=== PATIENT | female | born 1985 | race African-American/Black ===

== ENCOUNTER 2022-04-09 10:25 | Outpatient (REF) | payer OTHER, SELFPAY ==
[2022-04-09 14:11] LABS: Hematocrit 40.3 % (37.0-47.0); Hemoglobin 13.4 g/dl (12.0-16.0); Mean Corpuscular HGB Conc 33.3 g/dl (31.0-35.0); Mean Corpuscular Hemoglobin 30.9 pg (27.0-33.0); Mean Corpuscular Volume 93.1 fL (80.0-98.0); Mean Platelet Volume 9.5 fL (9.4-12.3); Platelet Count 295 X10*3/uL (160-400); Red Blood Count 4.33 X10*6/uL (4.20-5.50); Red Cell Distribution Width 11.9 % (11.0-16.0); White Blood Count 7.9 X10*3/uL (4.8-10.8)
[2022-04-09 14:21] LABS: Alanine Aminotransferase 30 U/L (0-31); Albumin Level 4.5 g/dL (3.5-5.0); Alkaline Phosphatase 77 U/L (39-117); Anion Gap 16 (12-20); Aspartate Amino Transferase 29 U/L (5-31); Bilirubin Total 0.4 mg/dL (0.0-1.0); Blood Urea Nitrogen 8 mg/dL (9-16); Calcium 9.6 mg/dL (8.4-10.2); Carbon Dioxide 25 mmol/L (22-29); Chloride 104 mmol/L (96-108); Cholesterol 254 mg/dL; Estimated Glomerular Filt Rate > 60; Glucose Fasting 103 mg/dL (60-99); HDL Cholesterol 59 mg/dL; LDL Cholesterol Calculated 175 mg/dl; Potassium 4.5 mmol/L (3.3-5.1); Sodium 140 mmol/L (135-145); Total Protein 7.7 g/dL (6.5-8.0); Triglycerides 100 mg/dL
[2022-04-09 14:44] LABS: TSH reflex Free T4 1.01 uIU/mL (0.32-4.0)
== END 2022-04-09 10:26 | disposition home or self-care (01) ==
LOC: HO.WFDLDS 10:25
PROVIDERS: Visit Provider Hospitalist
DX: Z00.00 Encounter for general adult medical examination without abnormal findings (principal)
CPT/HCPCS: 36415; 80053; 80061; 84443; 85027

== ENCOUNTER 2023-05-19 14:54 | Outpatient (AMB) | payer OTHER, SELFPAY ==
[2023-05-19 15:10] VITALS: BP 114/62; PULSE 94; RESP 12; TEMP 36.7; O2SAT 100; BMI 42.6
--- NOTE | 2023-05-19 15:10 | MHC.PC.OV ---
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: No Accompanied by: Self / Same As Patient Allergies No Known Allergies Allergy (Verified 05/19/23 15:14) Medication List - Last Reconciled 05/19/23 by Maye Wesley CNP atorvastatin 40 mg PO BEDTIME coenzyme Q10 (Co Q-10) 30 mg PO DAILY levonorgestrel (Mirena) intrauterine metformin 500 mg PO DAILY 3 months olanzapine 10 mg PO QPM trazodone TAKE 1 TABLET BY MOUTH TWICE A DAY NEEDED Tobacco use date assessed: 05/19/23 Dental Screening Dental Screen Date: 05/19/23 Did you have a dental visit in the last 12 months?: Yes Did you have a dental problem in the last 6 months where you did not have access to dental care?: No Was dental information given to patient?: Patient has dentist HPI HPI Comments History of Present Illness Details 38-year-old female presents for transfer of care Her former PCP is GLORY who is no longer with the practice. Her last office visit was on 09/08/2022 Her last physical and routine blood work was over a year ago She has history of anxiety, depression, hypercholesterolemia, and obesity. She is on mirena IUD She notes that she currently takes olanzapine and trazadone with controlled symptoms and no adverse reactions. She stopped taking atorvastatin, Co Q-10, and metformin after her prescriptions ran out She reports controlled anxiety, depression, and bipolar symptoms She notes that she has not been making healthy lifestyle choices or exercising She notes that she currently smokes 10 cigarettes daily and she has been smoking for the past 15 years. She drinks alcohol occasionally. She smokes cannabis once or twice weekly. She is willing to quit smoking with medication management [facility] Medical History (Updated 05/19/23 @ 15:46 by Maye Wesley CNP) HPV (human papilloma virus) infection Depression Anxiety Surgical History (Updated 05/19/23 @ 15:14 by Viry Barajas MA) No pertinent past surgical history Family History Other Mental health disorder Substance abuse Social History Housing: Apartment Patient Tobacco Use Status: Current everyday Tobacco user Tobacco use type: Cigarette Cigarette Packs Per Day: 0.5 Cigarettes Per Day: 10 Years Smoked: 15 e-Cigarette/Vaping Use: Never Used service: No Current occupational status: employed 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 1. Little interest or pleasure in doing things: several days 2. Feeling down, depressed, or hopeless: several days 3. Trouble falling or staying asleep, or sleeping too much: several days 4. Feeling tired or having little energy: more than half the days 5. Poor appetite or overeating: more than half the days 6. Feeling bad about yourself - or that you are a failure or have let yourself or your family down: more than half the days 7. Trouble concentrating on things, such as reading the newspaper or watching television: more than half the days 8. Moving or speaking so slowly that other people could have noticed. Or the opposite - being so fidgety or restless that you have been moving around a lot more than usual: not at all 9. Thoughts that you would be better off or of hurting yourself in some way: not at all Total score: 11 Depression Screening Interpretation: Positive Depression Screening Follow-up: Existing condition, In treatment and Community Mental Health Worker F/U Depression Screening Done: Yes 46415 - PHQ-9 Billing: Yes Source: Developed by Drs. Reinaldo Madrigal, Liset Mesa, Carlitos Yu and colleagues, with an educational wilfredo from [employer]. Thrive Questionnaire Date Thrive assessed: 05/19/23 I am a: Patient What is your living situation today?: I have a steady place to live Within the past 12 months, did the food you bought not last and you didn't have the money to get more?: Never true Within the past 12 months, did you worry whether your food would run out before you got money to buy more?: Never true Do you have trouble paying for medicines?: No Do you have trouble getting transportation to medical appointments?: No Do you have trouble paying your heating and electricity bill?: No Do you have trouble taking care of your child, family member or friend?: No Do you have trouble with day-to-day activities such as bathing, preparing meals, shopping, managing finances, etc.?: No Are you currently unemployed and looking for a job?: No Are you interested in more education?: Yes Please select the resources that you would like help with: Education Currently or been in a relationship where the following occur: no concerns reported AUDIT C Alcohol Use Questionnaire (AUDIT-C) 1. How often do you have a drink containing alcohol?: Monthly or less 2. How many drinks containing alcohol do you have on a typical day when you are drinking?: 3 or 4 3. How often do you have six or more drinks on one occasion?: Never Total Score: 2 TY-7 AMB Questionnaire TY-7 Date TY - 7 assessed: 05/19/23 Feeling nervous, anxious, or on edge: 1 = Several days Not being able to stop or control worryin = Several days Worrying too much about different things: 1 = Several days Trouble relaxin = Several days Being so restless that it is hard to sit still: 0 = Not at all Becoming easily annoyed or irritable: 1 = Several days Feeling afraid as if something awful might happen: 1 = Several days Total TY-7 score (0-4 normal; 5-9 mild; 10-14 moderate; 15-21 severe): 6 Source: Developed by Drs. Reinaldo Madrigal, Liset Mesa, Carlitos Yu and colleagues, with an educational wilfredo from [employer]. TY-7 Assessment Billing TY-7 Assessment Tool: TY-7 Assessment 98598 Physical exam (Primary Care) Vital Signs: Last Vital Signs Temp 98.1 F 05/19/23 15:10 Pulse 94 05/19/23 15:10 Resp 12 05/19/23 15:10 BP 114/62 05/19/23 15:10 Pulse Ox 100 05/19/23 15:10 Oxygen Delivery Method Room Air 05/19/23 15:10 Tobacco/Smoking Status: Tobacco use Status Tobacco use date assessed 05/19/23 05/19/23 15:18 Patient Tobacco Use Status Current everyday Tobacco 05/19/23 15:10 e-Cigarette/Vaping Use Never Used 05/19/23 15:10 PHQ-9: PHQ-9 Score PHQ-9: Total score 11 05/19/23 15:18 Depression Screening Interpretation: Positive Depression Screening Follow-up: Existing condition, In treatment and Community Mental Health Worker F/U Thrive Assessment: Date of Thrive Assessment Date Thrive assessed 05/19/23 05/19/23 15:18 Currently or been in a relationship where the following occur: no concerns reported Assessment and Plan Assessment & Plan (1) Anxiety: Code(s): F41.9 - Anxiety disorder, unspecified Plan: TY-7 and PHQ-9 scores revealed mild anxiety and moderate depression respectively She reports controlled anxiety, depression, and bipolar symptoms Continue taking olanzapine and trazodone as prescribed Routine exercise encouraged Referral sent to the community navigator to referred the patient to Psychiatry for mental health evaluation and management Will continue to monitor Follow-up in 1 month for an extended physical exam and labs review Return sooner with worsening or new symptoms Verbalized understanding and agreed with treatment plan (2) Depression: Code(s): F32.A - Depression, unspecified Plan: As above (3) Bipolar affective, mixed, severe: Code(s): F31.63 - Bipolar disorder, current episode mixed, severe, without psychotic features Plan: As above (4) Morbid obesity: Code(s): E66.01 - Morbid (severe) obesity due to excess calories Plan: She notes that she stop taking metformin several months ago after her prescription ran out She currently weighs 264 lb, BMI is 42.6 Healthy diet and routine exercise encouraged Referred to weight management Follow-up with symptoms or concerns Verbalized understanding and agreed with the plan (5) Smoking trying to quit: Code(s): Z72.0 - Tobacco use Plan: She notes that she currently smokes 10 cigarettes daily and she has been smoking for the past 15 years. She is willing to quit smoking with medication treatment Nicotine patch order. Advised to use as prescribed Return with symptoms or concerns Verbalized understanding and agreed with the treatment plan (6) Hypercholesterolemia: Code(s): E78.00 - Pure hypercholesterolemia, unspecified Plan: Triglycerides and total cholesterol levels were elevated over a ago, 254 and 175 respectively She stopped taking atorvastatin and Co Q10 several months ago after her prescriptions ran out Will check lipid panel level and make changes as needed Advised to get fasting blood work done before next visit. Verbalized understanding and agreed with treatment plan (7) Laboratory tests ordered as part of a complete physical exam (CPE): Code(s): Z00.00 - Encounter for general adult medical examination without abnormal findings Plan: Fasting labs ordered as part of a complete physical exam. Advised to fast for at least 10 hours before getting labs drawn. May drink water Verbalized understanding and agreed with treatment plan. Orders: Orders Complete Blood Count Auto Diff Today Z00.00 - Encounter for general adult medical examination without abnormal findings Lipid Panel Today Z00.00 - Encounter for general adult medical examination without abnormal findings UA CC w/rflx Micro + Cult Today Z00.00 - Encounter for general adult medical examination without abnormal findings Comprehensive [place]. Panel Fast Today Z00.00 - Encounter for general adult medical examination without abnormal findings TSH reflex Free T4 Today Z00.00 - Encounter for general adult medical examination without abnormal findings Referrals Nurse Navigator Referral F31.63 - Bipolar disorder, current episode mixed, severe, without psychotic features, F32.A - Depression, unspecified, F41.9 - Anxiety disorder, unspecified Medical Weight Management Referral E66.01 - Morbid (severe) obesity due to excess calories Medications: New nicotine transdermally daily; Apply 14 mg patch q.d. x6 weeks, then apply 7 mg patch q.d. x2 weeks: Info: Stop cigarette use at treatment onset 28 ea 0RF Discontinued coenzyme Q10 (Co Q-10) to be taken while taking atorvastatin Discontinued Reason: Doctor's Order 30 mg PO DAILY 90 caps 3RF atorvastatin Discontinued Reason: Doctor's Order 40 mg PO BEDTIME 90 tabs 3RF E78.00 - Pure hypercholesterolemia, unspecified metformin Discontinued Reason: Doctor's Order 500 mg PO DAILY 3 months 90 tabs 1RF E66.01 - Morbid (severe) obesity due to excess calories, F31.63 - Bipolar disorder, current episode mixed, severe, without psychotic features, Z83.3 - Family history of diabetes mellitus Coding Level of Care Code Est Pt Level 4 (37228) Diagnoses Anxiety F41.9 Depression F32.A Bipolar affective, mixed, severe F31.63 Morbid obesity E66.01 Smoking trying to quit Z72.0 Hypercholesterolemia E78.00 Laboratory tests ordered as part of a complete physical exam (CPE) Z00.00 Additional Codes TY-7 Assessment Billing - TY-7 Assessment Tool: TY-7 Assessment 87350 ([id number])
== END 2023-05-19 15:56 | disposition home or self-care (01) ==
PROVIDERS: PCP Hospitalist; Visit Provider Nurse Practitioner Family
DX: E78.00 Pure hypercholesterolemia, unspecified (principal); F31.63 Bipolar disorder, current episode mixed, severe, without psychotic features; Z68.41 Body mass index [BMI] 40.0-44.9, adult; E66.01 Morbid (severe) obesity due to excess calories; F41.9 Anxiety disorder, unspecified; Z72.0 Tobacco use
CPT/HCPCS: 96127; 99214

== ENCOUNTER 2023-07-07 09:54 | Outpatient (REF) | payer OTHER, SELFPAY ==
[2023-07-07 11:48] LABS: MANUAL DIFF FLAG NO
[2023-07-07 11:55] LABS: Basophils Percent Auto 0.1 % (0-2); Eosinophils Absolute Auto 0.1 X10*3/uL (0.0-0.4); Eosinophils Percent Auto 0.7 % (0-4); Hematocrit 39.5 % (37.0-47.0); Hemoglobin 13.3 g/dl (12.0-16.0); Imm Gran Abs Auto 0.03 X10*3/uL (0.00-0.03); Imm Gran Pct Auto 0.4 % (0.0-0.4); Lymphocytes Absolute Auto 1.8 X10*3/uL (1.2-4.9); Lymphocytes Percent Auto 23.8 % (20-40); Mean Corpuscular HGB Conc 33.7 g/dl (31.0-35.0); Mean Corpuscular Hemoglobin 30.8 pg (27.0-33.0); Mean Corpuscular Volume 91.4 fL (80.0-98.0); Monocytes Absolute Auto 0.4 X10*3/uL (0.1-1.2); Monocytes Percent Auto 5.7 % (2-11); Neutrophils Absolute Auto 5.1 x10*3/uL (2.0-8.3); Neutrophils Percent Auto 69.3 % (45-73); Platelet Count 296 X10*3/uL (160-400); Red Blood Count 4.32 X10*6/uL (4.20-5.50); White Blood Count 7.4 X10*3/uL (4.8-10.8)
[2023-07-07 11:56] LABS: Appearance Urine Clear; Color Urine Yellow; Glucose Urine UA Negative (Negative); Leukocyte Esterase Urine Negative (Negative); Nitrite Urine Negative (Negative); Specific Gravity - Urine 1.025 (1.005-1.025); Urine Blood Negative (Negative); Urine Ketones 15 mg/dL (Negative); Urine Protein Negative (Neg-Trace)
[2023-07-07 12:30] LABS: Alanine Aminotransferase 37 U/L (0-31); Albumin Level 4.4 g/dL (3.5-5.0); Alkaline Phosphatase 80 U/L (39-117); Anion Gap 11 (12-20); Aspartate Amino Transferase 31 U/L (5-31); Bilirubin Total 0.7 mg/dL (0.0-1.0); Blood Urea Nitrogen 7 mg/dL (9-16); Calcium 9.6 mg/dL (8.4-10.2); Carbon Dioxide 27 mmol/L (22-29); Chloride 104 mmol/L (96-108); Cholesterol 256 mg/dL (<200); Estimated Glomerular Filt Rate > 60; Glucose Fasting 104 mg/dL (60-99); HDL Cholesterol 48 mg/dL (>40); LDL Cholesterol Calculated 190 mg/dL (<100); Potassium 4.2 mmol/L (3.3-5.1); Sodium 138 mmol/L (135-145); Total Protein 7.9 g/dL (6.5-8.0); Triglycerides 92 mg/dL (<150)
[2023-07-07 12:49] LABS: TSH reflex Free T4 0.86 uIU/mL (0.32-4.0)
== END 2023-07-07 09:55 | disposition home or self-care (01) ==
LOC: HO.WFDLDS 09:54
PROVIDERS: Visit Provider Nurse Practitioner Family
DX: Z00.00 Encounter for general adult medical examination without abnormal findings (principal)
CPT/HCPCS: 36415; 80053; 80061; 81003; 84443; 85025

== ENCOUNTER 2023-08-08 13:03 | Outpatient (AMB) | payer OTHER, SELFPAY ==
[2023-08-08 13:09] VITALS: BP 111/74; PULSE 71; RESP 12; TEMP 36.4; O2SAT 100; BMI 42.0
--- NOTE | 2023-08-08 13:09 | A.OFFPC_ITS ---
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 x6 weeks, then apply 7 mg patch q.d. x2 weeks: Info: Stop cigarette use at treatment onset olanzapine 10 mg PO QPM trazodone TAKE 1 TABLET BY MOUTH TWICE A DAY NEEDED Tobacco use date assessed: 08/08/23 Dental Screening Dental Screen Date: 08/08/23 Did you have a dental visit in the last 12 months?: Yes Did you have a dental problem in the last 6 months where you did not have access to dental care?: No Was dental information given to patient?: Patient has dentist HPI HPI Comments History of Present Illness Details 38-year-old female presents for an exten ded physical exam and review of recent blood work She has history of anxiety, depression, hypercholesterolemia, and obesity. She is on mirena IUD She notes that she has not been taking her psychotropic medications routinely Community navigator was informed to schedule an appointment for the patient to connect with a therapist or psychiatrist. However, the patient notes that she has not been contacted She reports improved anxiety, depression, and bipolar symptoms but notes that her symptoms may be well controlled if she is consistent with taking her medications. No SI/HI/AVH She notes that she has not been making healthy lifestyle choices or exercising She notes that she currently smokes 5 cigarettes daily and she has been smoking for the past 15 years. She drinks alcohol occasionally. She smokes cannabis occasionally. She stop taking nicotine there was ordered at her last visit Her last Pap smear was a year ago with [facility]: Normal [facility] Medical History HPV (human papilloma virus) infection Depression Anxiety Surgical History No pertinent past surgical history Family History Other Mental health disorder Substance abuse Social History (Updated 08/08/23 @ 13:18 by Nevaeh Strauss CMA) Household Members: Children Housing: Apartment 75 years or older and lives alone: No Alcohol intake: current Alcohol intake frequency: a few times a month Patient Tobacco Use Status: Current everyday Tobacco user Tobacco use type: Cigarette Cigarette Packs Per Day: 0.5 Cigarettes Per Day: 10 Years Smoked: 15 e-Cigarette/Vaping Use: Never Used Substance Use Type: Marijuana service: No Current occupational status: employed Current occupation: [employer] Current occupational exposures/hazards: No Cognitive needs: No Hearing needs: No Vision needs: Yes Questionnaire PHQ-9 Over the last 2 weeks, how often have you been bothered by any of the following problems? 1. Little interest or pleasure in doing things: several days 2. Feeling down, depressed, or hopeless: several days 3. Trouble falling or staying asleep, or sleeping too much: several days 4. Feeling tired or having little energy: more than half the days 5. Poor appetite or overeating: more than half the days 6. Feeling bad about yourself - or that you are a failure or have let yourself or your family down: several days 7. Trouble concentrating on things, such as reading the newspaper or watching television: more than half the days 8. Moving or speaking so slowly that other people could have noticed. Or the opposite - being so fidgety or restless that you have been moving around a lot more than usual: not at all 9. Thoughts that you would be better off or of hurting yourself in some way: not at all Total score: 10 Depression Screening Interpretation: Positive Depression Screening Follow-up: Existing condition and In treatment Depression Screening Done: Yes 58941 - PHQ-9 Billing: Yes Source: Developed by Drs. Reinaldo Madrigal, Liset Mesa, Carlitos Yu and colleagues, with an educational wilfredo from [employer]. Thrive Questionnaire Date Thrive assessed: 08/08/23 I am a: Patient What is your living situation today?: I have a steady place to live Within the past 12 months, did the food you bought not last and you didn't have the money to get more?: Never true Within the past 12 months, did you worry whether your food would run out before you got money to buy more?: Never true Do you have trouble paying for medicines?: No Do you have trouble getting transportation to medical appointments?: No Do you have trouble paying your heating and electricity bill?: No Do you have trouble taking care of your child, family member or friend?: No Do you have trouble with day-to-day activities such as bathing, preparing meals, shopping, managing finances, etc.?: No Are you currently unemployed and looking for a job?: No Are you interested in more education?: No Please select the resources that you would like help with: None Currently or been in a relationship where the following occur: no concerns reported THRIVE Score: 0 AUDIT C Alcohol Use Questionnaire (AUDIT-C) 1. How often do you have a drink containing alcohol?: 2-4 times a month 2. How many drinks containing alcohol do you have on a typical day when you are drinking?: 1 or 2 3. How often do you have six or more drinks on one occasion?: Never Total Score: 2 TY-7 AMB Questionnaire TY-7 Date TY - 7 assessed: 08/08/23 Feeling nervous, anxious, or on edge: 1 = Several days Not being able to stop or control worryin = Several days Worrying too much about different things: 1 = Several days Trouble relaxin = Several days Being so restless that it is hard to sit still: 0 = Not at all Becoming easily annoyed or irritable: 2 = More than half the days Feeling afraid as if something awful might happen: 0 = Not at all Total TY-7 score (0-4 normal; 5-9 mild; 10-14 moderate; 15-21 severe): 6 Source: Developed by Drs. Reinaldo Madrigal, Liset Mesa, Carlitos Yu and colleagues, with an educational wilfredo from [employer] TY-7 Assessment Billing TY-7 Assessment Tool: TY-7 Assessment 51016 Review of Systems Const Details: Denies chills, Denies fatigue, Denies fever(s), Denies headache(s) and Denies weakness HEENT Denies change in vision, Denies dizziness, Denies headache(s), Denies hearing loss, Denies nasal congestion, Denies sinus pain, Denies sinus pressure and Denies sore throat Card Denies chest pain, Denies lightheadedness, Denies dyspnea and Denies other (palpitations) Resp Denies cough, Denies dyspnea and Denies wheezing GI Denies abdominal pain, Denies melena, Denies hematochezia, Denies change in bowel habits, Denies dyspepsia and Denies nausea Denies hematuria and Denies dysuria Musc Denies abnormal gait, Denies myalgias, Denies arthralgias, Denies numbness and Denies tingling Skin/Breast Denies rash, Denies unusual bruising and Denies wounds Neuro Denies abnormal gait, Denies dizziness, Denies headache(s), Denies memory loss, Denies numbness, Denies Sensory deficit (Neuro), Denies tingling and Denies weakness Psych Denies anxiety, Denies depression and Denies memory loss Endo Denies cold intolerance, Denies fatigue, Denies heat intolerance, Denies polydipsia and Denies polyuria Thaddeus/Lymph Denies easy bleeding and Denies easy bruising Aller/Immun Denies wheezing Physical exam (Primary Care) Vital Signs: Last Vital Signs Temp 97.5 F 08/08/23 13:09 Pulse 71 08/08/23 13:09 Resp 12 08/08/23 13:09 BP 111/74 08/08/23 13:09 Pulse Ox 100 08/08/23 13:09 Oxygen Delivery Method Room Air 08/08/23 13:09 BMI result Body Mass Index 42.0 Tobacco/Smoking Status: Tobacco use Status Tobacco use date assessed 08/08/23 08/08/23 13:16 Patient Tobacco Use Status Current everyday Tobacco 08/08/23 13:18 Tobacco use type Cigarette 08/08/23 13:18 e-Cigarette/Vaping Use Never Used 08/08/23 13:18 PHQ-9: PHQ-9 Score PHQ-9: Total score 10 08/08/23 13:38 Depression Screening Interpretation: Positive Depression Screening Follow-up: Existing condition and In treatment Thrive Assessment: Date of Thrive Assessment Date Thrive assessed 08/08/23 08/08/23 13:21 Currently or been in a relationship where the following occur: no concerns reported Const Other: General: no acute distress, well developed, alert and awake Nutritional Appearance: well nourished Orientation/consciousness: patient oriented x3 [facility] Head: Yes normocephalic and Yes atraumatic Ears: hearing grossly normal bilaterally and TM's normal bilaterally General nose exam: Normal external nose present and Normal nares present Mouth: Normal oral and palatal mucosa present and moist mucous membranes Teeth and gingiva: dentition normal Throat: Yes oropharynx normal Eyes Pupils: Equal, round and reactive pupils present and Pupil accommodation reflex normal EOM: EOMs intact bilaterally Neck Neck: Yes normal visual inspection, Yes no lymphadenopathy and Yes trachea midline Thyroid: Thyroid normal Carotids: no bruits Lymphatic: no lymphadenopathy noted Chest Chest palpation & inspection: normal inspection of the chest Resp Effort & Inspection: normal respiratory effort Auscultation: clear to auscultation bilaterally Cardio Rate: regular rate Rhythm: regular rhythm Heart sounds: S1 normal heart sound present, S2 normal heart sound present, no gallops, no murmurs and no rubs Bruits: no abdominal aortic bruits and no carotid bruits GI Palpation (GI): No Abdominal aortic bruit present, Soft to palpation, nontender, No hepatosplenomegaly present and No Rebound tenderness present Auscultation: normal bowel sounds General: Yes no CVA tenderness Back/Spine/Pelvis Back: no CVA tenderness Cervical Spine: cervical ROM normal and No Cervical spine tenderness Thoracic/Lumbar Spine: thoraco-lumbar ROM normal, No pain with thoraco-lumbar ROM, No thoracic spinal tenderness and No lumbar spinal tenderness Skin General: warm and dry. Normal skin color. Normal skin turgor Lesions: no lesions Rashes: no rashes Trauma: no lacerations or abrasions Wounds: no wounds Nails: normal Neuro General: patient oriented x3, gait normal and CN's II-XI intact bilaterally Cranial nerves: Yes Equal, round and reactive pupils present Cognition (Neuro): normal cognition Gait exam (Neuro): Normal gait present Motor exam (neuro): 5/5 motor strength present throughout Sensory Exam: No Sensory deficit (Neuro) Deep tendon reflexes (DTR's): Right patellar reflex intensity grade: 2+ and Left patellar reflex intensity grade: 2+ Extrem General: Yes normal to inspection, No edema and No calf tenderness Psych Appearance: grossly normal Affect: normal affect Attitude: cooperative Thought process: Normal thought process present Results AMB Hemoglobin A1c AMB Hemoglobin A1c 6.5 % Last Edit by Nevaeh Strauss CMA on 08/08/23 14:00 Assessment and Plan Assessment & Plan (1) Normal physical exam: Code(s): Z00.00 - Encounter for general adult medical examination without abnormal findi ngs Plan: No significant physical restrictions or limitations noted Continue current treatment regimen Healthy diet and routine exercise encouraged Follow-up in 6 weeks for hypercholesterolemia, anxiety, depression, and bipolar Return sooner with worsening or new symptoms Verbalized understanding and agreed with treatment plan (2) Anxiety: Code(s): F41.9 - Anxiety disorder, unspecified Plan: Reports improved anxiety, depression, and bipolar symptoms PHQ-9 and TY-7 scores revealed moderate depression and mild anxiety respectively She has not compliant with her medication regimen Medication compliance and routine exercise encouraged She notes she has not been contacted to connect with a therapist or psychiatrist. Will follow-up with the [facility] Follow-up in 6 weeks or return sooner with worsening or new symptoms Verbalized understanding and agreed with treatment plan (3) Depression: Code(s): F32.A - Depression, unspecified Plan: As above (4) Bipolar affective, mixed, severe: Code(s): F31.63 - Bipolar disorder, current episode mixed, severe, without psychotic features Plan: As above (5) Hypercholesterolemia: Code(s): E78.00 - Pure hypercholesterolemia, unspecified Plan: Recent lab results reviewed with the patient Total cholesterol and LDL are elevated, 256 and 190 respectively Atorvastatin 20 mg daily at night ordered. Take as prescribed Advised to limit foods high in saturated fat and avoid foods high in trans fat Routine exercise encouraged Will repeat lipid panel levels in 6 weeks. Advised to fast for 10-12 hours, may drink water only and get blood work done before next visit Follow-up in 6 weeks Verbalized understanding and agreed with treatment plan (6) Morbid obesity: Code(s): E66.01 - Morbid (severe) obesity due to excess calories Plan: She currently weighs 260 lb, BMI is 42.0 She has not been making healthy lifestyle changes She was referred to [facility] weight management. She has not been contacted. The medical management specialist contacted weight management and was informed that a link will be sent to the patient's phone to schedule an appointment; patient advised Healthy diet and routine exercise encouraged Follow-up with symptoms or concerns Verbalized understanding and agreed with treatment plan (7) Type 2 diabetes mellitus: Code(s): E11.9 - Type 2 diabetes mellitus without complications Plan: Recent fasting glucose is elevated, 104. Fasting glucose about a year ago was elevated, 103 A1c today 6.5% Metformin 500 mg daily ordered. Take as prescribed Routine exercise encouraged Will recheck A1c in 3 months Follow-up with symptoms or concerns Verbalized understanding and agreed with treatment plan (8) Smoking trying to quit: Code(s): Z72.0 - Tobacco use Plan: She currently smokes 5 cigarettes daily and she has been smoking for the past 15 years She stopped taking nicotine patch that was ordered at her last visit Instructed on the health risks and complications of cigarette smoking Smoking cessation encouraged Advised to contact her PCP if she wants to continue with medication treatment for cigarette smoking Orders: Orders AMB Hemoglobin A1c Today E11.9 - Type 2 diabetes mellitus without complications Lipid Panel 6 Weeks E78.00 - Pure hypercholesterolemia, unspecified Medications: New metformin 500 mg PO DAILY 30 days 30 tabs 3RF atorvastatin 20 mg PO BEDTIME 30 days 30 tabs 3RF Discontinued nicotine Discontinued Reason: Doctor's Order transdermally daily; Apply 14 mg patch q.d. x6 weeks, then apply 7 mg patch q.d. x2 weeks: Info: Stop cigarette use at treatment onset 28 ea 0RF Coding Level of Care Code Est Pt Level 4 (89436) Diagnoses Normal physical exam Z00.00 Anxiety F41.9 Depression F32.A Bipolar affective, mixed, severe F31.63 Hypercholesterolemia E78.00 Morbid obesity E66.01 Type 2 diabetes mellitus E11.9 Smoking trying to quit Z72.0 Additional Codes TY-7 Assessment Billing - TY-7 Assessment Tool: TY-7 Assessment 99755 ([id number])
== END 2023-08-08 14:13 | disposition home or self-care (01) ==
PROVIDERS: PCP Hospitalist; Visit Provider Nurse Practitioner Family
DX: Z00.00 Encounter for general adult medical examination without abnormal findings (principal); F31.63 Bipolar disorder, current episode mixed, severe, without psychotic features; E66.01 Morbid (severe) obesity due to excess calories; E11.9 Type 2 diabetes mellitus without complications; Z68.41 Body mass index [BMI] 40.0-44.9, adult; F41.9 Anxiety disorder, unspecified; E78.00 Pure hypercholesterolemia, unspecified; Z72.0 Tobacco use
CPT/HCPCS: 83036; 99214; 99395

== ENCOUNTER → 2023-09-01 13:48 | Outpatient (BNVA) | payer OTHER, SELFPAY | PROVIDERS: PCP Hospitalist; Visit Provider Physician Assistant ==

== ENCOUNTER 2023-09-19 09:19 | Outpatient (REF) | payer OTHER, SELFPAY ==
[2023-09-19 12:46] LABS: Creatinine Urine 349.59 mg/dL; Microalbum/Creatinine Ratio Ur 7.7 ug/mg cr (<30)
[2023-09-19 12:51] LABS: Cholesterol 152 mg/dL (<200); HDL Cholesterol 45 mg/dL (>40); LDL Cholesterol Calculated 91 mg/dL (<100); Triglycerides 82 mg/dL (<150)
== END 2023-09-19 09:20 | disposition home or self-care (01) ==
LOC: HO.WFDLDS 09:19
PROVIDERS: Visit Provider Nurse Practitioner Family
DX: E78.00 Pure hypercholesterolemia, unspecified (principal); E11.9 Type 2 diabetes mellitus without complications
CPT/HCPCS: 36415; 80061; 82043; 82570

== ENCOUNTER 2023-09-19 09:23 | Outpatient (AMB) | payer OTHER, SELFPAY ==
--- NOTE | 2023-09-19 09:24 | A.OFFPC_ITS ---
Vital Signs 09/19/23 09:27 Height 5 ft 5 in Weight 257 lb 8 oz BMI 42.8 BP 120/78 Blood Pressure Location Rt brachial Position Sitting Pulse 92 Pulse Source Pulse Oximeter Pulse Oximetry (%) 99 Oxygen Delivery Method Room Air Intake Visit Reasons: anxiety, depression, high cholesterol Intake Note: Patient is here to follow up on Anxiety, Depression, High Cholesterol, DM . 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 Accompanied by: Self / Same As Patient Allergies No Known Allergies Allergy (Verified 09/19/23 09:54) Medication List - Last Reconciled 09/19/23 by Maye Wesley CNP atorvastatin 20 mg PO BEDTIME 30 days levonorgestrel (Mirena) intrauterine metformin 500 mg PO DAILY 30 days olanzapine 10 mg PO QPM trazodone TAKE 1 TABLET BY MOUTH TWICE A DAY NEEDED Tobacco use date assessed: 09/19/23 Dental Screening Dental Screen Date: 08/08/23 HPI HPI Comments History of Present Illness Details 38-year-old female presents for anxiety, bipolar, and hypercholesterolemia follow-up She admits to taking her medications as prescribed without adverse reactions She reports controlled anxiety and bipolar disorder on current treatment regimen She notes that she has an appointment with weight management and as informed she would be connected with a therapist through weight management She denies suicidal or homicidal ideation. She denies hypomanic or manic episodes. She denies hallucinations She notes that she had lipid panel blood work done this morning COUNTS INCLUDE 234 BEDS AT THE [facility] Medical History HPV (human papilloma virus) infection Depression Anxiety Surgical History No pertinent past surgical history Family History Other Mental health disorder Substance abuse Social History (Updated 09/19/23 @ 09:30 by GAURAV Crawley) Household Members: Children Housing: [address]ment 75 years or older and lives alone: No Alcohol intake: current Alcohol intake frequency: a few times a month Patient Tobacco Use Status: Current everyday Tobacco user Tobacco use type: Cigarette Cigarette Packs Per Day: 0.25 Cigarettes Per Day: 2 Years Smoked: 15 Packs Per Year: 4 Packs per year/per ci.50 e-Cigarette/Vaping Use: Never Used Second Hand Smoke Exposure: Yes Substance Use Type: Marijuana service: No Current occupational status: employed Current occupation: [employer] Current occupational exposures/hazards: No Cognitive needs: No Hearing needs: No Vision needs: Yes Questionnaire PHQ-9 Over the last 2 weeks, how often have you been bothered by any of the following problems? 1. Little interest or pleasure in doing things: not at all 2. Feeling down, depressed, or hopeless: not at all 3. Trouble falling or staying asleep, or sleeping too much: not at all 4. Feeling tired or having little energy: not at all 5. Poor appetite or overeating: not at all 6. Feeling bad about yourself - or that you are a failure or have let yourself or your family down: not at all 7. Trouble concentrating on things, such as reading the newspaper or watching television: not at all 8. Moving or speaking so slowly that other people could have noticed. Or the opposite - being so fidgety or restless that you have been moving around a lot more than usual: not at all 9. Thoughts that you would be better off or of hurting yourself in some way: not at all Total score: 0 Depression Screening Interpretation: Negative Depression Screening Done: Yes Source: Developed by Drs. Reinaldo Madrigal, Liset Mesa, Carlitos Yu and colleagues, with an educational wilfredo from [employer]. Thrive Questionnaire Date Thrive assessed: 08/08/23 TY-7 AMB Questionnaire TY-7 Date TY - 7 assessed: 09/19/23 Feeling nervous, anxious, or on edge: 0 = Not at all Not being able to stop or control worryin = Not at all Worrying too much about different things: 0 = Not at all Trouble relaxin = Not at all Being so restless that it is hard to sit still: 0 = Not at all Becoming easily annoyed or irritable: 0 = Not at all Feeling afraid as if something awful might happen: 0 = Not at all Total TY-7 score (0-4 normal; 5-9 mild; 10-14 moderate; 15-21 severe): 0 Source: Developed by Drs. Reinaldo Madrigal, Carlitos Steeleoenke and colleagues, with an educational wilfredo from [employer]. Review of Systems Const Details: Const Denies chills, Denies fatigue, Denies fever(s), Denies headache(s) and Denies weakness ENT Denies dizziness and Denies headache(s) Card Denies chest pain, Denies lightheadedness, Denies dyspnea and Denies other (Palpitations) Resp Denies cough, Denies dyspnea, Denies wheezing and Denies other ( shortness of breath) GI Denies abdominal pain, Denies melena, Denies hematochezia, Denies change in bowel habits, Denies dyspepsia and Denies nausea Denies hematuria and Denies dysuria Musc Denies abnormal gait, Denies myalgias, Denies arthralgias, Denies numbness and Denies tingling Skin/Breast Denies rash, Denies unusual bruising and Denies wounds Neuro Denies abnormal gait, Denies dizziness, Denies headache(s), Denies memory loss, Denies numbness, Denies Sensory deficit (Neuro), Denies tingling and Denies weakness Psych Denies anxiety, Denies depression, Denies memory loss Endo Denies cold intolerance, Denies fatigue, Denies heat intolerance, Denies polydipsia and Denies polyuria Aller/Immun Denies wheezing Physical exam (Primary Care) Vital Signs: Last Vital Signs Pulse 92 09/19/23 09:27 BP 120/78 09/19/23 09:27 Pulse Ox 99 09/19/23 09:27 Oxygen Delivery Method Room Air 09/19/23 09:27 BMI result Body Mass Index 42.8 Tobacco/Smoking Status: Tobacco use Status Tobacco use date assessed 09/19/23 09/19/23 09:29 Patient Tobacco Use Status Current everyday Tobacco 09/19/23 09:30 Tobacco use type Cigarette 09/19/23 09:30 e-Cigarette/Vaping Use Never Used 09/19/23 09:30 PHQ-9: PHQ-9 Score PHQ-9: Total score 0 09/19/23 09:33 Depression Screening Interpretation: Negative Thrive Assessment: Date of Thrive Assessment Date Thrive assessed 08/08/23 09/19/23 09:29 Const Other: General: no acute distress and well developed Nutritional Appearance: well nourished Orientation/consciousness: patient oriented x3 [facility] Head: Yes normocephalic and Yes atraumatic Eyes General: appearance normal, both eyes and all related structures Pupils: Equal, round and reactive pupils present EOM: EOMs intact bilaterally Resp Effort & Inspection: normal respiratory effort Auscultation: clear to auscultation bilaterally Cardio Rate: regular rate Rhythm: regular rhythm Heart sounds: S1 normal heart sound present, S2 normal heart sound present, no gallops, no murmurs and no rubs GI Palpation (GI): No Abdominal aortic bruit present, Soft to palpation, nontender, No hepatosplenomegaly present and No Rebound tenderness present Auscultation: normal bowel sounds General: Yes no CVA tenderness Back/Spine/Pelvis Back: no CVA tenderness Cervical Spine: cervical ROM normal and No Cervical spine tenderness Thoracic/Lumbar Spine: thoraco-lumbar ROM normal, No pain with thoraco-lumbar ROM, No thoracic spinal tenderness and No lumbar spinal tenderness Extrem General: Yes normal to inspection, No edema and No calf tenderness Skin General: warm and dry. Normal skin color. Normal skin turgor Neuro General: patient oriented x3, gait normal and no focal neuro deficit Cranial nerves: Yes Equal, round and reactive pupils present Cognition (Neuro): normal cognition Gait exam (Neuro): Normal gait present Sensory Exam: No Sensory deficit (Neuro) Psych Appearance: grossly normal Affect: normal affect Attitude: cooperative Thought process: Normal thought process present Assessment and Plan Assessment & Plan (1) Bipolar affective, mixed, severe: Code(s): F31.63 - Bipolar disorder, current episode mixed, severe, without psychotic features Plan: Controlled symptoms Continue to take olanzapine 10 mg daily Routine exercise encouraged Follow-up in 3 months or return sooner with symptoms or concerns Verbalized understanding and agreed with treatment plan (2) Anxiety: Code(s): F41.9 - Anxiety disorder, unspecified Plan: As above (3) Hypercholesterolemia: Code(s): E78.00 - Pure hypercholesterolemia, unspecified Plan: She had blood work done today. Will review results and make changes as needed Orders: Orders Microalbumin, Random (w Creat) Today E11.9 - Type 2 diabetes mellitus without complications Coding Level of Care Code Est Pt Level 4 (17817) Diagnoses Bipolar affective, mixed, severe F31.63 Anxiety F41.9 Hypercholesterolemia E78.00
[2023-09-19 09:27] VITALS: BP 120/78; PULSE 92; O2SAT 99; BMI 42.8
== END 2023-09-19 10:08 | disposition home or self-care (01) ==
PROVIDERS: PCP Hospitalist; Visit Provider Nurse Practitioner Family
DX: F31.63 Bipolar disorder, current episode mixed, severe, without psychotic features (principal); F41.9 Anxiety disorder, unspecified; E78.00 Pure hypercholesterolemia, unspecified
CPT/HCPCS: 99214

== ENCOUNTER 2023-10-17 08:00 | Outpatient (AMB) | payer OTHER, SELFPAY ==
--- NOTE | 2023-10-17 13:52 | MHC.OFFVISWM ---
VS Expanded 10/17/23 14:06 Height 5 ft 5 in Weight 257 lb 4 oz BMI 42.8 Body Fat % 48.8 Body Fat Mass 125.6 Fat Free Mass 131.6 Visceral Fat Rating 14 Body Water % 36.7 Body Water Mass 94.4 Basal Metabolic Rate/Score 1,892 Intake Visit Reasons: [employer] BMI 42.8 Allergies No Known Allergies Allergy (Verified 10/17/23 13:52) Medication List - Last Reconciled 10/17/23 by Brayan Patiño MD atorvastatin 20 mg PO BEDTIME 30 days levonorgestrel (Mirena) intrauterine metformin 500 mg PO DAILY 30 days olanzapine 10 mg PO QPM trazodone TAKE 1 TABLET BY MOUTH TWICE A DAY NEEDED HPI HPI [employer] BMI 42.8: Details: Start time: 1.30pm, End time: 2.15pm ?I spent 40 minutes speaking with the patient on the phone plus an additional 5 minutes reviewing and updating records for a total of 45 minutes HPI Comments Details: Previous weight loss methods: Weight Watchers, Diet pills, exercise Wakes up: 6,30am, Sleeps:11pm Breakfast: skips Lunch: 10.30am (sausage, fruit, eggs) Dinner: 7.30pm (chicken, rice, vegetables) Snacks: 2-3 snacks between lunch and dinner (chips) Exercise: none Fluids: Coffee: 2 cupd/day (cream), tea: none, soda: zero calories, juice:none, ETOH: PFSH Medical History HPV (human papilloma virus) infection Depression Anxiety Surgical History No pertinent past surgical history Family History Other Mental health disorder Substance abuse Social History (Updated 09/19/23 @ 09:30 by GAURAV Crawley) Household Members: Children Housing: Apartment Alcohol intake: current Alcohol intake frequency: a few times a month Patient Tobacco Use Status: Current everyday Tobacco user Tobacco use type: Cigarette Cigarette Packs Per Day: 0.25 Cigarettes Per Day: 2 Years Smoked: 15 e-Cigarette/Vaping Use: Never Used Second Hand Smoke Exposure: Yes Substance Use Type: Marijuana service: No Current occupational status: employed 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 Physical Exam Vital Signs: BMI result Body Mass Index 42.8 Telehealth Telehealth Telehealth Platform: Telephone Location of provider rendering services: practice address Location of patient: address on file Patient Identification confirmed using: Name, : Yes Telehealth method: voice only Patient verbally consented to treatment: Yes Patient verbally consented to billing insurance company: Yes Patient informed of any privacy concerns related to visit: Yes Minutes spent on Phone/Video with Pt.: 45 Assessment & Plan Assessment & Plan (1) Morbid obesity: Code(s): E66.01 - Morbid (severe) obesity due to excess calories Category: Medical Plan: Plan for lap sleeve gastrectomy. If diaphragmatic or ventral hernias are present at time of surgery, these will be repaired laparoscopically as well. Risks and complications were discussed in detail including possible conversion to an open procedure, anastomotic leak, bleeding requiring transfusion, small bowel obstruction, , DVT and pulmonary embolism, cardiac, or pulmonary complications, as terminologist complications such as anastomotic ulcer, insufficient weight loss and vitamin deficiencies. I emphasized the importance of close follow-up, adherence to instructions and good communication. 2. You will receive a link of our software carla to generate an individualized nutritional and exercise plan specific for you. Please send me a screenshot of the plans you will generate Meal to include lean meat (beef, fish, pork, turkey, chicken), or [place] islander yogurt, or egg whites, or beans with a salad with olive oil and fruits (berries, pears, apples, kiwi). Avoid salt, breads, potatoes, rice, pasta, desserts. ?3. If you choose shakes, each shake would be drunk slowly, like coffee in a period of 2 hours. ?4. If you choose bars, cut each bar in 4 pieces and eat each piece in 30min ?to make each bar last 2 hours. ?5. I emphasized the importance of measuring accurately the food portion and measure it when serving the food in plate ?6. The meal portions include a specific number of forks of meat and salad. You always eat the meat portion but you can replace up to half of salad/vegetables portion with rice, potatoes or pasta, or a fruit ?if you like. The less you do it the better weight loss will be. ?7. One full-size fork is what it can be scooped on the fork without falling aside and not what can be bit with the fork. Use regular forks like those you find in a typical restaurant. ?8.? Please send me weight measurements as soon as possible and then once a week. Always include your diet and exercise plan. 9. The best choice would be to purchase a stationary bike, elliptical or treadmill at home that can track calories. Let me know if you do so I can give you an exercise plan. ?10.?It is important of avoiding and for at least 18 months postoperatively and has been discussed at the infosession. ?11. Goal is to lose at least 1.5-2lbs per week ?12. Goal to lose 10% of your weight before surgery, which is about 26lbs. Ultimate weight goal: 231lbs before surgery 13. Please follow the diet plan exactly without any change. If you don't like something about the plan or you feel hungry you need to communicate with me so I can help you revise the plan. You should not change the plan yourself. Orders: Orders Insulin Today E11.9 - Type 2 diabetes mellitus without complications, E66.01 - Morbid (severe) obesity due to excess calories, E78.00 - Pure hypercholesterolemia, unspecified Complete Blood Count Auto Diff Today E11.9 - Type 2 diabetes mellitus without complications, E66.01 - Morbid (severe) obesity due to excess calories, E78.00 - Pure hypercholesterolemia, unspecified Lipid Panel Today E11.9 - Type 2 diabetes mellitus without complications, E66.01 - Morbid (severe) obesity due to excess calories, E78.00 - Pure hypercholesterolemia, unspecified C Reactive Protein Today E11.9 - Type 2 diabetes mellitus without complications, E66.01 - Morbid (severe) obesity due to excess calories, E78.00 - Pure hypercholesterolemia, unspecified TSH reflex Free T4 Today E11.9 - Type 2 diabetes mellitus without complications, E66.01 - Morbid (severe) obesity due to excess calories, E78.00 - Pure hypercholesterolemia, unspecified Vitamin D 25-OH Total Today E11.9 - Type 2 diabetes mellitus without complications, E66.01 - Morbid (severe) obesity due to excess calories, E78.00 - Pure hypercholesterolemia, unspecified XR chest 2V Today E11.9 - Type 2 diabetes mellitus without complications, E66.01 - Morbid (severe) obesity due to excess calories, E78.00 - Pure hypercholesterolemia, unspecified FL upper GI w air Today E11.9 - Type 2 diabetes mellitus without complications, E66.01 - Morbid (severe) obesity due to excess calories, E78.00 - Pure hypercholesterolemia, unspecified Hemoglobin A1c Today E11.9 - Type 2 diabetes mellitus without complications, E66.01 - Morbid (severe) obesity due to excess calories, E78.00 - Pure hypercholesterolemia, unspecified H Pylori Breath Test Today E11.9 - Type 2 diabetes mellitus without complications, E66.01 - Morbid (severe) obesity due to excess calories, E78.00 - Pure hypercholesterolemia, unspecified IRON PROFILE Today E11.9 - Type 2 diabetes mellitus without complications, E66.01 - Morbid (severe) obesity due to excess calories, E78.00 - Pure hypercholesterolemia, unspecified Comprehensive Met. Panel Today E11.9 - Type 2 diabetes mellitus without complications, E66.01 - Morbid (severe) obesity due to excess calories, E78.00 - Pure hypercholesterolemia, unspecified Vitamin B12 and Folate Today E11.9 - Type 2 diabetes mellitus without complications, E66.01 - Morbid (severe) obesity due to excess calories, E78.00 - Pure hypercholesterolemia, unspecified Zinc Today E11.9 - Type 2 diabetes mellitus without complications, E66.01 - Morbid (severe) obesity due to excess calories, E78.00 - Pure hypercholesterolemia, unspecified Vitamin B1 Today E11.9 - Type 2 diabetes mellitus without complications, E66.01 - Morbid (severe) obesity due to excess calories, E78.00 - Pure hypercholesterolemia, unspecified Vitamin A Today E11.9 - Type 2 diabetes mellitus without complications, E66.01 - Morbid (severe) obesity due to excess calories, E78.00 - Pure hypercholesterolemia, unspecified Ferritin Today E11.9 - Type 2 diabetes mellitus without complications, E66.01 - Morbid (severe) obesity due to excess calories, E78.00 - Pure hypercholesterolemia, unspecified US abdomen comp w elastography Today E11.9 - Type 2 diabetes mellitus without complications, E66.01 - Morbid (severe) obesity due to excess calories, E78.00 - Pure hypercholesterolemia, unspecified ECG 12 lead EKG Today E11.9 - Type 2 diabetes mellitus without complications, E66.01 - Morbid (severe) obesity due to excess calories, E78.00 - Pure hypercholesterolemia, unspecified Referrals Nutrition/Dietitian Referral E11.9 - Type 2 diabetes mellitus without complications, E66.01 - Morbid (severe) obesity due to excess calories, E78.00 - Pure hypercholesterolemia, unspecified Behavioral Health Referral E11.9 - Type 2 diabetes mellitus without complications, E66.01 - Morbid (severe) obesity due to excess calories, E78.00 - Pure hypercholesterolemia, unspecified
[2023-10-17 14:06] VITALS: BMI 42.8
== END 2023-10-17 14:37 | disposition home or self-care (01) ==
LOC: HO.HBS 08:00
PROVIDERS: PCP Hospitalist; Visit Provider Surgery
DX: E66.01 Morbid (severe) obesity due to excess calories (principal)
CPT/HCPCS: 99204

== ENCOUNTER → 2023-10-17 08:00 | Outpatient (BNVA) | payer OTHER, SELFPAY | PROVIDERS: PCP Hospitalist; Visit Provider Surgery ==

== ENCOUNTER 2023-10-31 09:04 | Outpatient (REF) | payer OTHER, SELFPAY ==
--- NOTE | ~2023-10-31 | US_ITS ---
EXAMINATION: US COMPLETE ABDOMEN WITH LIVER ELASTOGRAPHY CLINICAL INFORMATION: COMPARISON: None available. TECHNIQUE: Real-time imaging of the abdominal viscera. Noninvasive ultrasound liver fibrosis assessment is performed using Markos ElastPQ point quantification shear wave elastography (2D-SWE) with a C5-2 MHz transducer. Multiple elastography samples are obtained. FINDINGS: PANCREAS: Normal. The visualized pancreatic head and body are normal in appearance. The remainder of the pancreas is obscured from visualization by the overlying bowel gas. ABDOMINAL AORTA: The proximal, middle, and distal aortic segments are normal in caliber. INFERIOR VENA CAVA: Visualized portions are normal. LIVER: The liver demonstrates normal size, contour and increased echogenicity, with pericholecystic sparing. No focal lesion or intrahepatic biliary duct dilatation. The right lobe measures 14.0 cm in length. The left lobe measures 11.3 cm in length. Portal flow is towards the liver (hepatopetal). Shear wave liver elastography median stiffness is 1.42 m/s (reference: normal median stiffness is 1.3 m/s or less). IQR/median stiffness to assess sampling precision is 0.08 (reference: good quality data set is IQR/median stiffness of 0.15 or less). GALLBLADDER: Normal. The gallbladder is physiologically distended without evidence of stones, sludge, polyps, wall thickening or pericholecystic fluid. COMMON BILE DUCT: Normal in caliber measuring 0.3 cm in diameter. RIGHT KIDNEY: Normal. No hydronephrosis. No renal calculi or focal parenchymal lesions. The kidney measures 10.7 cm in maximum dimension. LEFT KIDNEY: Normal. No hydronephrosis. No renal calculi or focal parenchymal lesions. The kidney measures 10.1 cm in maximum dimension. SPLEEN: Normal. The spleen measures 9.8 cm in maximum dimension. FREE FLUID: None. US/US abdomen comp w elastography IMPRESSION: 1. There is generalized increase in hepatic echotexture, consistent with fatty infiltration or hepatocellular disease. Please correlate clinically. Characteristic pericholecystic sparing favors fatty infiltration. No focal hepatic mass or intrahepatic biliary dilatation is seen. 2. Liver elastography: In the absence of other known clinical signs, measurements rule out compensated advanced chronic liver disease. If there are known clinical signs, further testing may be needed for confirmation. REFERENCE: Society of Radiologists in Ultrasound Liver Stiffness Thresholds (2020): LIVER STIFFNESS THRESHOLDS: *Liver Stiffness equal or less than 1.3 m/s: High probability of being normal. *Liver Stiffness less than 1.7 m/s: In the absence of other known clinical signs, rules out compensated advanced chronic liver disease. *Liver Stiffness 1.7-2.1 m/s: Suggestive of compensated advanced chronic liver disease but need further test for confirmation. *Liver Stiffness over 2.1 m/s: Rules in compensated advanced chronic liver disease. *Liver Stiffness over 2.4 m/s: Suggestive of clinically significant portal hypertension. QUALITY OF DATA SET: *IQR/Median value equal or less than 0.15 implies a quality data set. *IQR/Median value over 0.15 implies a poor quality data set. SIGNIFICANT CHANGE FROM PRIOR EXAM: Significant change if liver stiffness measurement is 10% or greater from prior exam. OTHER CONSIDERATIONS: The stage of liver fibrosis may be overestimated in the setting of acute hepatitis, liver inflammation, elevated liver function tests, hepatic vascular congestion, obstructive cholestasis, non-fasting state, and infiltrative diseases such as amyloidosis and lymphoma. In some patients with NAFLD, the liver stiffness thresholds for compensated advanced chronic liver disease may be lower. In causes other than viral hepatitis and NAFLD, liver stiffness thresholds are not well established.
--- NOTE | ~2023-10-31 | XR_ITS ---
EXAMINATION: XR CHEST CLINICAL INFORMATION: Moderately severe obesity due to excess calories COMPARISON: None available. TECHNIQUE: 2 views of the chest were obtained. FINDINGS: There is no gross pneumothorax. Heart size is normal. Mild dextroscoliosis of the thoracic spine. No pleural effusion. No focal consolidation to suggest pneumonia. XR/XR chest 2V IMPRESSION: Mild dextroscoliosis of the thoracic spine.
--- NOTE | 2023-10-31 09:47 | ECG_ITS ---
Test Reason : OBESITY Blood Pressure : / mmHG Vent. Rate : 062 BPM Atrial Rate : 062 BPM P-R Int : 150 ms QRS Dur : 090 ms QT Int : 414 ms P-R-T Axes : 068 053 029 degrees QTc Int : 420 ms Normal sinus rhythm Normal ECG No previous ECGs available Referred By: Brayan Patiño Electronically Signed By:Hi Randolph
[2023-10-31 10:13] LABS: MANUAL DIFF FLAG NO
[2023-10-31 10:42] LABS: Basophils Percent Auto 0.3 % (0-2); Eosinophils Absolute Auto 0.1 X10*3/uL (0.0-0.4); Eosinophils Percent Auto 0.6 % (0-4); Hematocrit 37.9 % (37.0-47.0); Hemoglobin 13.2 g/dl (12.0-16.0); Imm Gran Abs Auto 0.03 X10*3/uL (0.00-0.03); Imm Gran Pct Auto 0.4 % (0.0-0.4); Lymphocytes Absolute Auto 1.6 X10*3/uL (1.2-4.9); Lymphocytes Percent Auto 20.7 % (20-40); Mean Corpuscular HGB Conc 34.8 g/dl (31.0-35.0); Mean Corpuscular Hemoglobin 32.3 pg (27.0-33.0); Mean Corpuscular Volume 92.7 fL (80.0-98.0); Monocytes Absolute Auto 0.4 X10*3/uL (0.1-1.2); Monocytes Percent Auto 5.5 % (2-11); Neutrophils Absolute Auto 5.7 x10*3/uL (2.0-8.3); Neutrophils Percent Auto 72.5 % (45-73); Platelet Count 280 X10*3/uL (160-400); Red Blood Count 4.09 X10*6/uL (4.20-5.50); Red Cell Distribution Width 12.2 % (11.0-16.0); White Blood Count 7.9 X10*3/uL (4.8-10.8)
[2023-10-31 10:47] LABS: Estimated Average Glucose 117 mg/dL; Hemoglobin A1c % 5.7 % (<6.0)
[2023-10-31 11:21] LABS: Alanine Aminotransferase 26 U/L (0-31); Albumin Level 4.2 g/dL (3.5-5.0); Alkaline Phosphatase 81 U/L (39-117); Anion Gap 12 (12-20); Aspartate Amino Transferase 25 U/L (5-31); Bilirubin Total 0.5 mg/dL (0.0-1.0); Blood Urea Nitrogen 9 mg/dL (9-16); Calcium 9.5 mg/dL (8.4-10.2); Carbon Dioxide 26 mmol/L (22-29); Chloride 107 mmol/L (96-108); Cholesterol 149 mg/dL (<200); Estimated Glomerular Filt Rate > 60; Glucose Random 105 mg/dL (60-115); HDL Cholesterol 44 mg/dL (>40); Iron 85 mcg/dL (30-160); LDL Cholesterol Calculated 93 mg/dL (<100); Percent Iron Saturation 27 % (15-50); Potassium 3.9 mmol/L (3.3-5.1); Sodium 141 mmol/L (135-145); Total Iron Binding Capacity 318 mcg/dL (228-428); Total Protein 7.3 g/dL (6.5-8.0); Triglycerides 63 mg/dL (<150); Unsaturated Iron Binding 233 ug/dL
[2023-10-31 11:31] LABS: Ferritin 159 ng/mL (10-122); TSH reflex Free T4 0.84 uIU/mL (0.32-4.0); Vitamin D 25-OH Total 8.1 ng/mL (>30)
[2023-10-31 11:41] LABS: Vitamin B12 603 pg/mL (200-900)
[2023-10-31 11:51] LABS: Insulin 8 uU/mL (2-29)
[2023-11-02 23:09] LABS: Zinc 68 mcg/dL (60-130)
[2023-11-03 05:53] LABS: Vitamin A 33 mcg/dL (38-98)
[2023-11-04 16:28] LABS: Vitamin B1 7 nmol/L (8-30)
== END 2023-10-31 09:05 | disposition home or self-care (01) ==
LOC: HO.US 09:04
PROVIDERS: PCP Nurse Practitioner Family; Visit Provider Surgery
DX: E66.01 Morbid (severe) obesity due to excess calories (principal); E78.00 Pure hypercholesterolemia, unspecified; E11.9 Type 2 diabetes mellitus without complications
CPT/HCPCS: 36415; 71046; 76700; 76981; 80053; 80061; 82306; 82607; 82728; 82746; 83036; 83525; 83540; 84425; 84443; 84590; 84630; 85025; 86140; 93005

== ENCOUNTER → 2023-10-31 09:47 | Outpatient (BNV) | payer OTHER, SELFPAY | PROVIDERS: PCP Nurse Practitioner Family; Visit Provider Internal Medicine Cardiovascular Disease | DX: E78.00 Pure hypercholesterolemia, unspecified (principal); E66.01 Morbid (severe) obesity due to excess calories; E11.9 Type 2 diabetes mellitus without complications | CPT/HCPCS: 93010 ==

== ENCOUNTER 2023-11-14 08:53 | Outpatient (AMB) | payer OTHER, SELFPAY ==
--- NOTE | 2023-11-14 08:53 | A.OFFWM_ITS ---
Intake Intake Visit Reasons: (TV) BH Intake Allergies No Known Allergies Allergy (Verified 10/17/23 13:52) [facility] Medical History HPV (human papilloma virus) infection Depression Anxiety Surgical History No pertinent past surgical history Family History Other Mental health disorder Substance abuse Social History (Updated 09/19/23 @ 09:30 by GAURAV Crawley) Household Members: Children Housing: Apartment Alcohol intake: current Alcohol intake frequency: a few times a month Patient Tobacco Use Status: Current everyday Tobacco user Tobacco use type: Cigarette Cigarette Packs Per Day: 0.25 Cigarettes Per Day: 2 Years Smoked: 15 e-Cigarette/Vaping Use: Never Used Second Hand Smoke Exposure: Yes Substance Use Type: Marijuana service: No Current occupational status: employed Current occupation: [employer] Current occupational exposures/hazards: No Cognitive needs: No Hearing needs: No Vision needs: Yes Behavioral Health Assessment Weight Management Therapy Therapy Notes Details Patient is looking to have weight loss surgery to help improve her health and quality of life. She reported being in therapy in the past and was diagnosed with bipolar disorder two years ago by her doctor. She was put on medication due to anxiety, mood dysregulation, irritability. No hx of problem with drugs or alcohol. She reported using marijuana a few times a week. Also might have two drinks in one week. No history of inpatient psychiatric admissions. Presenting Concerns Referral Source provider Reason for referral weight loss surgery evaluation Precipitating Event obesity Living Situation Current Living Situation Rent At risk of losing current housing? No Satisfied with current living situation? Yes Comments Patient lives with her two children ages 15 and 12 years old. Food/Weight/Diet Expectations of change weight loss and maintenance History/Relationship with food Pt stated that she struggles with eating too much sweets, also struggled in the past with over eating, and some binge eating, also would skip or under eat during the day and then over eating later in the day. Soda was also daily, about 1-2, fast food two times a week. History/Relationship with weight Pt reported being around 262lbs at her heaviest. She was about 175lbs at her lowest as an adult. History/Relationship with dieting WW, gym membership, diet pills Binge Eating Do you frequently eat large amounts of food in short periods of time, not feeling physically hungry? Yes Do you feel out of control when you eat a large amount of food in a short period of time? No Do you eat large amounts of food rapidly and typically alone? No Night Eating Do you wake up at least once during the night to eat? No If you wake up in the night, do you find that it is necessary to eat something in order to fall back asleep? No Do you have little or no appetite in the morning and feel very hungry in the evening, often overeating between dinner and when you go to bed? Yes Social History Family history and relationship Patient is from [place] and moved to [place] 2004. Her mother lives in [place] and her sister in [place]. She is one of three siblings. Pt is and has two children. 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 none Education Highest grade completed GED Preferred learning style Auditory, Verbal, Written, Learn by doing and Visual Currently enrolled in educational program? No Interested in further educational program? 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 No Meaningful activities walking after work with co workers, painting, needle felting, Financial Situation Describe current financial situation Occasional struggle Financial assistance? None and Food [place] Service Service? No Mental Health and Addiction Treatment Current/Past substance abuse? Yes Comments some alcohol and marijuana use Current/Past addictive behavior concerns? No Medical and Physical Health Summary Physical exam in the last year? Yes Pain Screening Current pain? No Pain in the last few months? No Medications Is the patient compliant with medications? Yes Does the patient have Irvin Guardian in place? Not applicable Does the patient use complimentary health approaches? No Trauma/Abuse History History of trauma? No Questionnaires PHQ-9 Over the last 2 weeks, how often have you been bothered by any of the following problems? 1. Little interest or pleasure in doing things: several days 2. Feeling down, depressed, or hopeless: several days 3. Trouble falling or staying asleep, or sleeping too much: several days 4. Feeling tired or having little energy: several days 5. Poor appetite or overeating: several days 6. Feeling bad about yourself - or that you are a failure or have let yourself or your family down: several days 7. Trouble concentrating on things, such as reading the newspaper or watching television: several days 8. Moving or speaking so slowly that other people could have noticed. Or the opposite - being so fidgety or restless that you have been moving around a lot more than usual: not at all 9. Thoughts that you would be better off or of hurting yourself in some way: not at all Total score: 7 Source: Developed by Drs. Reinaldo Madrigal, Liset Mesa, Carlitos Yu and colleagues, with an educational wilfredo from [employer]. Binge Eating Scale Group 1 A. I don't feel self-conscious about my wt. or body size when I'm with others. B. I feel concerned about how I look to others, but it normally does not make me fell disappointed with myself C. I do get self-conscious about my appearance and wt. which makes me feel disappointed in myself. D. I feel very self-conscious about my wt. and frequently I feel intense shame and disgust for myself. I try to avoid social contacts because of my self-consci ousness. Response Group 1: C Group 2 A. I don't have any difficulty eating slowly in the proper manner. B. Although I seem to gobble down foods, I don't end up feeling stuffed because of eating to much. C. At times, I tend to eat quickly and then, I feel uncomfortably full af terwards. D. I have the habit of bolting down my food, without really chewing it. When this happens I usually feel uncomfortably stuffed because I've eaten to much. Response Group 2: A Group 3 A. I feel capable to control my eating urges when I want to. B. I feel like I have failed to control my eating more than the average person. C. I feel utterly helpless when it comes to feeling in control of my eating urges. D. Because I feel so helpless about controlling my eating I have become very desperate about trying to get control. Response Group 3: A Group 4 A. I don't have the habit of eating when I'm bored. B. I sometimes eat when I'm bored, but often I'm able to get busy and get my mind off food. C. I have a regular habit of eating when I'm bored, but occasionally, I can use some other activity to get my mind off eating. D. I have a strong habit of eating when I'm bored. Nothing seems to help me breath the habit. Response Group 4: C Group 5 A. I'm usually physically hungry when I eat something. B. Occasionally, I eat something on impulse even though I really am not hungry. C. I have the regular habit of eating foods, that I might not really enjoy, to satisfy a hungry feeling even though physically, I don't need the food. D. Although I'm not physically hungry, I get a hungry feeling in my mouth that only seems to be satisfied when I eat a food, like sandwich, that fills my mouth. Sometimes, when I eat the food to satisfy my mouth hunger, I then spit the food out so I won't gain weight. Response Group 5: B Group 6 A. I don't feel any guilt or self-hate after I overeat. B. After I overeat, occasionally I feel guilt or self-hate. C. Almost all the time I experience strong guilt or self-hate after I overeat. Response Group 6: A Group 7 A. I don't lose total control of my eating when dieting even after periods when I overeat. B. Sometimes when I eat a forbidden food on a diet, I feel like I blew it and eat even more. C. Frequently, I have the habit of saying to myself, I've blown it now, why not go all the way, when I overeat on a diet. When that happens I eat more. D. I have a regular habit of starting a strict diets for myself but I break the diets by going on an eating binge. My life seems to be either a feast or famine. Response Group 7: B Group 8 A. I rarely eat so much food that I feel uncomfortably stuffed afterwards. B. Usually about once a month, I each such a quantity of food, I end up feeling very stuffed. C. I have regular periods during the month when I eat large amounts of food, either at mealtime or at snacks. D. I eat so much food that I regularly feel quite uncomfortable after eating and sometimes a bit nauseous. Response Group 8: B Group 9 A. My level of calorie intake does not go up very high or go down very low on a regular basis. B. Sometimes after I overeat, I will try to reduce my caloric intake to almost nothing to compensate for the excess calories I've eaten. C. I have a regular habit of overeating during the night. It seems that my routine is not to be hungry in the morning but overeat in the evening. D. In my adult years, I have had week-long periods where I practically starve myself. This follows periods when I overeat. It seems I live a life of either feast or famine. Response Group 9: B Group 10 A. I usually am able to stop eating when I want to. I know when enough is enough. B. Every so often, I experience a compulsion to eat which I can't seem to control. C. Frequently, I experience strong urges to eat which I seem unable to control, but at other times I can control my eating urges. D. I feel incapable of controlling urges to eat. I have a fear of not being able to stop eating voluntarily. Response Group 10: B Group 11 A. I don't have any problem stopping eating when I feel full. B. I usually can stop eating when I feel full but occasionally overeat leaving me feeling uncomfortably stuffed. C. I have a problem stopping eating once I start and usually I feel uncomfortably stuffed after I eat a meal. D. Because I have a problem not being able to stop eating when I want, I sometimes have to induce vomiting to relieve my stuffed feeling. Response Group 11: A Group 12 A. I seem to eat just as much when I'm with others, Family social gatherings as when I'm by myself. B. Sometimes, when I'm with other persons, I don't eat as much as I want to eat because I'm self-conscious about my eating. C. Frequently, I eat only a small amount of food when others are present, because I'm very embarrassed about my eating. D. I feel so ashamed about overeating that I pick times to overeat when I know no one will see me. I feel like a closet eater. Response Group 12: C Group 13 A. I eat three meals a day with only an occasional between meal snack. B. I eat 3 meals a day, but I also normally snack between meals. C. When I am snacking heavily, I get in the habit of skipping regular meals. D. There are regular periods when I seem to be continually eating, with no planned meals. Response Group 13: B Group 14 A. I don't think much about trying to control unwanted eating urges. B. At least some of the time, I feel my thoughts are pre-occupied with trying to control my eating urges. C. I feel that frequently I spend much time thinking about how much I ate or about trying not to eat anymore. D. It seems to me that most of my waking hours are pre-occupied by thoughts about eating or not eating. I feel like I'm constantly struggling not to eat. Response Group 14: B Group 15 A. I don't think about food a great deal. B. I have strong craving for food but they last only for brief periods of time. C. I have days when I can't seem to think about anything else but food. D. Most of my days seem to be pre-occupied with thoughts about food. I feel like I live to eat. Response Group 15: B Group 16 A. I usually know whether or not I'm physically hungry. I take the right portion of food to satisfy me. B. Occasionally, I feel uncertain about knowing whether or not I'm physically hungry. A these times it's hard to know how much food I should take to satisfy me. C. Even though I might know how many calories I should eat, I don't have any idea what is a normal amount of food for me. Response Group 16: B Binge Eating Score: 15 Score less than 17 Minimal Risk Score between 18-26 Moderate Risk Score between 27-46 High Risk Assessment & Plan Assessment & Plan (1) Bipolar affective, mixed, severe: Code(s): F31.63 - Bipolar disorder, current episode mixed, severe, without psychotic features (2) Morbid obesity: Code(s): E66.01 - Morbid (severe) obesity due to excess calories Plan Patient is stable, she has no serious barriers. She is appropriate for group and would like additional support. Pt is cleared for surgery when ready. Telehealth Telehealth Telehealth Platform: Telephone Location of provider rendering services: practice address Location of patient: address on file Patient Identification confirmed using: Name, : Yes Telehealth method: voice only Patient verbally consented to treatment: Yes Patient verbally consented to billing insurance company: Yes Patient informed of any privacy concerns related to visit: Yes Minutes spent on Phone/Video with Pt.: 40 Coding Level of Care Code Tele Psy Diag Eval (88249) Diagnoses Bipolar affective, mixed, severe F31.63 Morbid obesity E66.01 Time Spent (min) 40
== END 2023-11-14 09:25 | disposition home or self-care (01) ==
LOC: HO.HBST 08:53
PROVIDERS: PCP Nurse Practitioner Family; Visit Provider Counselor Mental Health
DX: F31.63 Bipolar disorder, current episode mixed, severe, without psychotic features (principal); E66.01 Morbid (severe) obesity due to excess calories
CPT/HCPCS: 90791

== ENCOUNTER → 2023-11-14 08:53 | Outpatient (BNVA) | payer OTHER, SELFPAY | PROVIDERS: PCP Nurse Practitioner Family; Visit Provider Counselor Mental Health ==

== ENCOUNTER 2023-11-21 16:13 | Outpatient (AMB) | payer OTHER, SELFPAY ==
[2023-11-21 16:21] VITALS: BP 112/70; PULSE 91; RESP 14; TEMP 36.6; O2SAT 97; BMI 41.1
--- NOTE | 2023-11-21 16:21 | A.OFFPC_ITS ---
Vital Signs 11/21/23 16:21 Height 5 ft 5 in Weight 247 lb BMI 41.1 BP 112/70 Blood Pressure Location Rt brachial Position Sitting Respiration 14 Pulse 91 Pulse Source Pulse Oximeter Temp 97.8 F Temp Source Temporal Artery Scan Pulse Oximetry (%) 97 Oxygen Delivery Method Room Air Intake Visit Reasons: DM, bipolar, anxiety Etl Application Developer Required: No Accompanied by: Self / Same As Patient Allergies No Known Allergies Allergy (Verified 11/21/23 16:32) Medication List - Last Reconciled 11/21/23 by Maye Wesley CNP atorvastatin 20 mg PO BEDTIME 30 days cholecalciferol (vitamin D3) 125 mcg PO DAILY levonorgestrel (Mirena) intrauterine metformin 500 mg PO DAILY 30 days olanzapine 10 mg PO QPM thiamine HCl (vitamin B1) 100 mg PO DAILY trazodone TAKE 1 TABLET BY MOUTH TWICE A DAY NEEDED vitamin A palmitate 10,000 units PO DAILY Tobacco use date assessed: 09/19/23 Dental Screening Dental Screen Date: 08/08/23 HPI HPI Comments History of Present Illness Details 38-year-old female presents for diabetes , bipolar, and anxiety follow- up She admits to taking her medications as prescribed without adverse reactions She reports controlled anxiety and bipolar symptoms on current treatment regimen She offers no complaints and denies acute symptoms at this time She states that she has been working with weight management prescribed diet and has been losing weight. She notes that she is well pleased with herself [facility] Medical History (Updated 11/21/23 @ 12:39 by Yamileth Uribe RN) Bipolar disorder Elevated cholesterol Diabetes HPV (human papilloma virus) infection Depression Anxiety Surgical History No pertinent past surgical history Family History Other Mental health disorder Substance abuse Social History (Updated 09/19/23 @ 09:30 by GAURAV Crawley) Household Members: Children Housing: Apartment 75 years or older and lives alone: No Alcohol intake: current Alcohol intake frequency: a few times a month Patient Tobacco Use Status: Current everyday Tobacco user Tobacco use type: Cigarette Cigarette Packs Per Day: 0.25 Cigarettes Per Day: 2 Years Smoked: 15 e-Cigarette/Vaping Use: Never Used Second Hand Smoke Exposure: Yes Substance Use Type: Marijuana service: No Current occupational status: employed Current occupation: [employer] Current occupational exposures/hazards: No Cognitive needs: No Hearing needs: No Vision needs: Yes Questionnaire PHQ-9 Over the last 2 weeks, how often have you been bothered by any of the following problems? 1. Little interest or pleasure in doing things: not at all 2. Feeling down, depressed, or hopeless: not at all 3. Trouble falling or staying asleep, or sleeping too much: several days 4. Feeling tired or having little energy: several days 5. Poor appetite or overeating: several days 6. Feeling bad about yourself - or that you are a failure or have let yourself or your family down: not at all 7. Trouble concentrating on things, such as reading the newspaper or watching t elevision: several days 8. Moving or speaking so slowly that other people could have noticed. Or the opposite - being so fidgety or restless that you have been moving around a lot more than usual: not at all 9. Thoughts that you would be better off or of hurting yourself in some way: not at all Total score: 4 Depression Screening Interpretation: Negative Depression Screening Done: Yes 25058 - PHQ-9 Billing: Yes Source: Developed by Drs. Reinaldo Madrigal, Carlitos Steele and colleagues, with an educational wilfredo from [employer]. Thrive Questionnaire Date Thrive assessed: 08/08/23 TY-7 AMB Questionnaire TY-7 Date TY - 7 assessed: 11/21/23 Feeling nervous, anxious, or on edge: 1 = Several days Not being able to stop or control worryin = Not at all Worrying too much about different things: 1 = Several days Trouble relaxin = Not at all Being so restless that it is hard to sit still: 0 = Not at all Becoming easily annoyed or irritable: 0 = Not at all Feeling afraid as if something awful might happen: 1 = Several days Total TY-7 score (0-4 normal; 5-9 mild; 10-14 moderate; 15-21 severe): 3 Source: Developed by Drs. Reinaldo Madrigal, Carlitos Steele and colleagues, with an educational wilfredo from [employer]. TY-7 Assessment Billing TY-7 Assessment Tool: TY-7 Assessment 79779 Review of Systems Const Details: Const Denies chills, Denies fatigue, Denies fever(s), Denies headache(s) and Denies weakness ENT Denies dizziness and Denies headache(s) Card Denies chest pain, Denies lightheadedness, Denies dyspnea and Denies other (Palpitations) Resp Denies cough, Denies dyspnea, Denies wheezing and Denies other ( shortness of breath) GI Denies abdominal pain, Denies melena, Denies hematochezia, Denies change in bowel habits, Denies dyspepsia and Denies nausea Denies hematuria and Denies dysuria Musc Denies abnormal gait, Denies myalgias, Denies arthralgias, Denies numbness and Denies tingling Skin/Breast Denies rash, Denies unusual bruising and Denies wounds Neuro Denies abnormal gait, Denies dizziness, Denies headache(s), Denies memory loss, Denies numbness, Denies Sensory deficit (Neuro), Denies tingling and Denies weakness Psych Denies anxiety, Denies depression, Denies memory loss Endo Denies cold intolerance, Denies fatigue, Denies heat intolerance, Denies polydipsia and Denies polyuria Aller/Immun Denies wheezing Physical exam (Primary Care) Tobacco/Smoking Status: Tobacco use Status Tobacco use date assessed 09/19/23 09/19/23 09:29 Patient Tobacco Use Status Current everyday Tobacco 09/19/23 09:30 Tobacco use type Cigarette 09/19/23 09:30 e-Cigarette/Vaping Use Never Used 09/19/23 09:30 Depression Screening Interpretation: Negative Thrive Assessment: Date of Thrive Assessment Date Thrive assessed 08/08/23 09/19/23 09:29 Const Other: General: no acute distress and well developed Nutritional Appearance: well nourished Orientation/consciousness: patient oriented x3 HENMT Head: Yes normocephalic and Yes atraumatic Eyes General: appearance normal, both eyes and all related structures Pupils: Equal, round and reactive pupils present EOM: EOMs intact bilaterally Resp Effort & Inspection: normal respiratory effort Auscultation: clear to auscultation bilaterally Cardio Rate: regular rate Rhythm: regular rhythm Heart sounds: S1 normal heart sound present, S2 normal heart sound present, no gallops, no murmurs and no rubs GI Palpation (GI): No Abdominal aortic bruit present, Soft to palpation, nontender, No hepatosplenomegaly present and No Rebound tenderness present Auscultation: normal bowel sounds General: Yes no CVA tenderness Back/Spine/Pelvis Back: no CVA tenderness Cervical Spine: cervical ROM normal and No Cervical spine tenderness Thoracic/Lumbar Spine: thoraco-lumbar ROM normal, No pain with thoraco-lumbar ROM, No thoracic spinal tenderness and No lumbar spinal tenderness Extrem General: Yes normal to inspection, No edema and No calf tenderness Skin General: warm and dry. Normal skin color. Normal skin turgor Neuro General: patient oriented x3, gait normal and no focal neuro deficit Cranial nerves: Yes Equal, round and reactive pupils present Cognition (Neuro): normal cognition Gait exam (Neuro): Normal gait present Sensory Exam: No Sensory deficit (Neuro) Psych Appearance: grossly normal Affect: normal affect Attitude: cooperative Thought process: Normal thought process present Assessment and Plan Assessment & Plan (1) Type 2 diabetes mellitus: Code(s): E11.9 - Type 2 diabetes mellitus without complications Plan: Recent A1c in October was 5.7%, within goal of less than 7.0%. Previous A1c was 6.5% Continue to take metformin 500 mg daily ADA diet and routine exercise encouraged Follow-up in 3 months or sooner with symptoms or concerns Verbalized understanding and agreed with the treatment plan (2) Bipolar affective, mixed, severe: Code(s): F31.63 - Bipolar disorder, current episode mixed, severe, without psychotic features Plan: Reports controlled bipolar and anxiety symptoms PHQ-9 and TY-7 scores are normal Continue to take olanzapine and trazodone as prescribed Follow-up in 3 months or sooner with symptoms or concerns Verbalized understanding and agreed with the treatment plan (3) Anxiety: Code(s): F41.9 - Anxiety disorder, unspecified Plan: As above (4) Vitamin D deficiency: Code(s): E55.9 - Vitamin D deficiency, unspecified Plan: Recent vitamin-D level was low, 8.1 Continue to take vitamin D3 as prescribed by weight management Verbalized understanding and agreed with the plan (5) Morbid obesity: Code(s): E66.01 - Morbid (severe) obesity due to excess calories Plan: She has lost 10 lb since her last visit She currently weighs 247 lb, BMI is 41.1 Continue current treatment regimen Follow-up with weight management as planned Verbalized understanding and agreed with the treatment plan Coding Level of Care Code Est Pt Level 4 (45128) Complex EM visit Add On G2211 Diagnoses Type 2 diabetes mellitus E11.9 Bipolar affective, mixed, severe F31.63 Anxiety F41.9 Vitamin D deficiency E55.9 Morbid obesity E66.01 Additional Codes TY-7 Assessment Billing - TY-7 Assessment Tool: TY-7 Assessment 48319 ([id number])
== END 2023-11-21 16:45 | disposition home or self-care (01) ==
PROVIDERS: PCP Hospitalist; Visit Provider Nurse Practitioner Family
DX: E11.9 Type 2 diabetes mellitus without complications (principal); F31.63 Bipolar disorder, current episode mixed, severe, without psychotic features; E66.01 Morbid (severe) obesity due to excess calories; Z68.41 Body mass index [BMI] 40.0-44.9, adult; F41.9 Anxiety disorder, unspecified; E55.9 Vitamin D deficiency, unspecified
CPT/HCPCS: 99214; G2211

== ENCOUNTER 2023-11-23 09:23 | Day surgery (SDC) | payer OTHER, SELFPAY ==
--- NOTE | 2023-11-21 12:41 | HO.ANESPROP2 ---
Documented by User: Megan Killian NP 11/21/23 12:41 HPI - Anesthesia Eval Consult details Narrative: 38yo F for Upper Endoscopy PMFSH Active Problems Active Problems: All Active Problems Vitamin B1 deficiency (Acute) Vitamin A deficiency (Acute) Vitamin D deficiency (Acute) Type 2 diabetes mellitus (Acute) Elevated fasting glucose (Acute) Hypercholesterolemia (Acute) Smoking trying to quit (Acute) Laboratory tests ordered as part of a complete physical exam (CPE) (Acute) Family history of diabetes mellitus (Acute) High cholesterol (Acute) Morbid obesity (Acute) Elevated blood pressure reading (Acute) Normal physical exam (Acute) Bipolar affective, mixed, severe (Acute) Anxiety (Acute) Depression (Acute) Past Medical History Medical History Bipolar disorder Elevated cholesterol Diabetes HPV (human papilloma virus) infection Depression Anxiety Family History Family History Other Mental health disorder Substance abuse Surgical History Surgical History No pertinent past surgical history Social History Social History Household Members: Children Housing: Apartment Alcohol intake: current Alcohol intake frequency: a few times a month Patient Tobacco Use Status: Current everyday Tobacco user Tobacco use type: Cigarette Cigarette Packs Per Day: 5 Cigarettes Per Day: 100.0 Years Smoked: 15 e-Cigarette/Vaping Use: Never Used Second Hand Smoke Exposure: Yes Use of substances other than those prescribed or required for medical reasons: Yes Substance Use Type: Marijuana Substance Use Frequency: Daily Are you DNR?: No Advance Directives: No Advance Directives Information Provided: Yes Patient : No (UCG pending) service: No Current occupational status: employed 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 Meds Allergies Allergy/AdvReac Type Severity Reaction Status Date / Time No Known Allergies Allergy Verified 11/21/23 16:32 Home Medications ?Medication ?Instructions ?Recorded ?Confirmed ?Last Taken ?Type levonorgestrel 21 mcg/24 hours (8 intrauterine 04/09/22 11/21/23 Unknown History yrs) 52 mg intrauterine device (Mirena) Assessment and Plan Assessment Anesthesia Assessment: Chart Reviewed Documented by User: Patricia Joseph MD 11/23/23 10:14 PMFSH Active Problems Active Problems: All Active Problems Vitamin B1 deficiency (Acute) Vitamin A deficiency (Acute) Vitamin D deficiency (Acute) Type 2 diabetes mellitus (Acute) Elevated fasting glucose (Acute) Hypercholesterolemia (Acute) Smoking trying to quit (Acute) Laboratory tests ordered as part of a complete physical exam (CPE) (Acute) Family history of diabetes mellitus (Acute) High cholesterol (Acute) Morbid obesity (Acute) BMI 42.8 Elevated blood pressure reading (Acute) Normal physical exam (Acute) Bipolar affective, mixed, severe (Acute) Anxiety (Acute) Depression (Acute) Past Medical History Medical History Bipolar disorder Elevated cholesterol Diabetes HPV (human papilloma virus) infection Depression Anxiety Family History Family History Other Mental health disorder Substance abuse Family history of problems with anesthesia: No Surgical History Surgical History No pertinent past surgical history History of Problems with Anesthesia: No Social History Social History Household Members: Children Housing: Apartment Alcohol intake: current Alcohol intake frequency: a few times a month Patient Tobacco Use Status: Current everyday Tobacco user Tobacco use type: Cigarette Cigarette Packs Per Day: 5 Cigarettes Per Day: 100.0 Years Smoked: 15 e-Cigarette/Vaping Use: Never Used Second Hand Smoke Exposure: Yes Use of substances other than those prescribed or required for medical reasons: Yes Substance Use Type: Marijuana Substance Use Frequency: Daily Are you DNR?: No Advance Directives: No Advance Directives Information Provided: Yes Patient : No (UCG pending) service: No Current occupational status: employed 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 Meds Allergies Allergy/AdvReac Type Severity Reaction Status Date / Time No Known Allergies Allergy Verified 11/21/23 16:32 Home Medications ?Medication ?Instructions ?Recorded ?Confirmed ?Last Taken ?Type levonorgestrel 21 mcg/24 hours (8 intrauterine 04/09/22 11/21/23 Unknown History yrs) 52 mg intrauterine device (Mirena) Exam Height,Weight and Vital Signs: Height 5 ft 5 in Weight 114.305 kg Vital Signs Temp Pulse Resp BP Pulse Ox O2 Del Method 11/23/23 09:58 98.2 F 57 18 128/64 98 Room Air Pertinent Lab Results Pertinent Lab Results: Lab Results 11/23/23 Range/Units 09:50 Urine Test NEGATIVE (NEGATIVE) Airway Mallampati Class: II TM Dist: >3cm Neck ROM: Full Loose/Missing/Broken Teeth: Yes (Missing teeth top right and left) Heart: RRR Lungs: CTAB Assessment and Plan Assessment Anesthesia Assessment: Anesthesia Plan Discussed and Chart Reviewed Final Anesthetic Review Family History of Problems with Anesthesia: No History of Problems with Anesthesia: No NPO: Yes ASA Class: III Final Preanesthetic Review: No Changes in Pt Med Stat, Meds/Allgs Chart Reviewed, Consent Obtained/Reviewed and Anes Risks/Benef Reviewed Patient Risk: Intermediate Procedure Risk: Low Assessment/Block/Sedation in SS: Assess/Block/Sedation-SS Anesthetic Plan Anesthetic Plan: TIVA Disposition: Standard PACU
[2023-11-21 12:42] VITALS: BMI 42.8
[2023-11-23 09:38] VITALS: BMI 41.9
[2023-11-23 09:58] VITALS: BP 128/64; PULSE 57; RESP 18; TEMP 36.8; O2SAT 98
[2023-11-23 09:58] LABS: UPreg QC Valid YES; Urine Pregnancy NEGATIVE (NEGATIVE)
[2023-11-23] MEDS: Lactated Ringers 1,000 ML 80 ML IVCONT (10:07)
--- NOTE | 2023-11-23 10:08 | MHC.SHP ---
Pre-Procedural Eval Section A - 24 Hr Update-Section A only Date of Service: 11/23/23 The patient is an INPATIENT: No The patient has been examined within 24 hours of the surgical procedure. The History & Physical has been completed within 30 days and I have reviewed it.: No Section B - Complete if H&P > 30 days Chief Complaint: Morbid (severe) obesity due to excess calories Relevant Family History (Specify if Yes): No Relevant Social History: None Present Medications: None Medical History: No relevant PMH History of Previous Operations: No relevant previous surgery Allergies: Allergies Allergy/AdvReac Type Severity Reaction Status Date / Time No Known Allergies Allergy Verified 11/21/23 16:32 Review of Systems Sugical H&P ROS: Negative: Constitution, Cardiovascular, Respiratory, Neurological, Psychiatric, Hem-Onc, Allergic/Immunologic, Gastrointestinal, Genitourinary, Musculoskeletal, Integumentary, Endocrine and Eyes/Ears/Nose/Throat Exam Surgical H&P Exam: Normal: HEENT, Normal: Heart, Normal: Lungs, Normal: Extremities, Normal: Abdomen, Normal: Skin and Normal: Neurological Plan Diagnosis/Plan: Unchanged (EGD to assess the anatomy of the stomach. Risks of bleeding and perforation were discussed with the patient and she is in agreement with the plan.) I have reviewed the history and physical and performed a pertinent physical examination on my patient. No changes have occurred unless specified. Time Spent With Patient Time: Total time managing care of this patient today ____ minutes.
--- NOTE | 2023-11-23 10:18 | PM.OP ---
Brief Operative Note Date of Service: 11/23/23 Pre-op diagnosis: Morbid obesity Post-op diagnosis: same (small Hiatal hernia) Procedure: PROCEDURE DATE: 11/23/2023 PREOPERATIVE DIAGNOSIS: Obesity POSTOPERATIVE DIAGNOSIS: ?Same as above. 1) small hiatal hernia PROCEDURE: Sveynfhy-pkblyl-pynzfyxavpmv with biopsies Surgeon: ?Dillon Patiño M.D.. Ph.D. Client Service Executive: None ? Anesthesia: IV sedation Estimated blood loss: ?Minimal FINDINGS AND PROCEDURE: ? OPERATIVE INDICATIONS: ?The patient is a 38 year old female known to me who is interested in bariatric surgery. The patient is preparing for bariatric surgery and upper endoscopy is indicated to assess her stomach. Based on this information I recommended an upper endoscopy to evaluate the patient's symptoms. Risks and complications of the surgery were discussed with the patient in advance particularly the possibility of perforation or bleeding that may require surgical intervention. The patient understood the risks and was in agreement with the plan. ? PROCEDURE: After informed consent was obtained by the patient, the patient was ?transferred to the Operating Room and was placed in the supine position.? After successful induction of IV sedation, a mouth block was inserted and the patient was placed in the left lateral decubitus position. An upper endoscopy was performed next, the oropharynx and esophagus appeared within the normal limits. There was a small 2cm hiatal hernia. The z-line was smooth. Two biopsies were obtained from the distal esophagus 2-3 cm proximal to the GE junction and two additional biopsies from the GE junction. The stomach was entered and it appeared to be of normal size. There was no gastritis. There was no stricture or ulcer. A biopsy was obtained from the gastric fundus and antrum. No significant bleeding was noted from any of the biopsy sites. Retroflexion of the scope confirned the presence of a small hiatal hernia. The scope was then advanced into the duodenum which appeared to be normal as well. At that point the duodenum ?and the stomach were decompressed and the scope was withdrawn from the patient's mouth. The patient extubated and was transferred in stable condition to the Recovery Room for further care. I was present and performed all steps of the procedure. There were no residents to assist with this case. Dillon Patiño M.D., Ph.D. Surgeon: Brayan Patiño MD Anesthesia: MAC Was an Client Service Executive used for this Procedure?: No Estimated blood loss (mL): 0 IV fluids (mL): 400 Urine output (mL): 0 (No Samaniego to record output) Pathology: other (1) antrum x1, 2) fundus x1, 3) GE junction x2, 4) distal esophagus x2) Condition: stable Disposition: PACU
[2023-11-23 10:20] LABS: Glucose, Whole Blood 104 mg/dL (60-115)
[2023-11-23 10:48] VITALS: BP 113/66; PULSE 62; RESP 16; TEMP 36.5; O2SAT 100
[2023-11-23 11:03] VITALS: BP 129/60; PULSE 60; RESP 16; TEMP 36.5; O2SAT 100
== END 2023-11-23 11:23 | disposition home or self-care (01) ==
PROVIDERS: Nurse Practitioner; PCP Nurse Practitioner Family; Visit Provider Surgery
PROC: 0DJ08ZZ Inspection of Upper Intestinal Tract, Via Natural or Artificial Opening Endoscopic (ICD-10-PCS; CPT 43235; principal; 2023-11-23 10:50)
DX: E66.01 Morbid (severe) obesity due to excess calories (principal); Z68.41 Body mass index [BMI] 40.0-44.9, adult; K29.50 Unspecified chronic gastritis without bleeding; B96.81 Helicobacter pylori [H. pylori] as the cause of diseases classified elsewhere; K44.9 Diaphragmatic hernia without obstruction or gangrene; E11.9 Type 2 diabetes mellitus without complications; Z79.84 Long term (current) use of oral hypoglycemic drugs
CPT/HCPCS: 43239; 81025; 82947; 88305; 88313; 88342; J1596; J2704

== ENCOUNTER → 2023-11-23 09:23 | Outpatient (BNV) | payer OTHER, SELFPAY | PROVIDERS: PCP Nurse Practitioner Family; Visit Provider Surgery | DX: K44.9 Diaphragmatic hernia without obstruction or gangrene (principal) | CPT/HCPCS: 43239 ==

== ENCOUNTER 2023-12-09 09:32 | Outpatient (REF) | payer OTHER, SELFPAY ==
--- NOTE | ~2023-12-09 | FL_ITS ---
EXAMINATION: XR FLUOROSCOPY UPPER GI WITH AIR CLINICAL INFORMATION: Preop evaluation prior to bariatric surgery COMPARISON: None TECHNIQUE: Fluoroscopic air contrast upper GI examination was performed utilizing standard techniques with thin and thick barium and effervescent granules. Numerous spot images were obtained. FINDINGS: Dual and single contrast images of the esophagus demonstrate normal caliber, contour, and mucosal pattern. No evidence of stricture, mass, or ulcerations identified. Esophageal peristalsis was normal. No evidence of hiatus hernia identified. A small amount of gastroesophageal reflux is seen up to the midesophagus. Dual contrast and single contrast images of the stomach demonstrated a normal contour. The gastric rugal folds have a mildly thickened appearance, which suggest gastritis. No masses or ulcerations are seen. Contrast freely passed into the gastric antrum and duodenal bulb without delay. Single and air-contrast images of the duodenal bulb demonstrate no abnormality. The duodenal sweep has a normal appearance, course, and mucosal fold appearance. The imaged proximal jejunum has a normal fold pattern and caliber. FLUOROSCOPY TIME: 3 minutes 20 seconds Number of Spot Images: 7 Number of Cine: 14 DOSE AREA PRODUCT: 3141 uGy-m2 (microgray-meter squared) FL/FL upper GI w air IMPRESSION: 1. Mild gastroesophageal reflux 2. Mildly thickened appearance of the gastric rugal folds which could suggest mild gastritis. This procedure was performed by Franky Lewis PA-C, and supervised by Dr. Ogden
== END 2023-12-09 09:33 | disposition home or self-care (01) ==
LOC: HO.XRAY 09:32
PROVIDERS: PCP Nurse Practitioner Family; Visit Provider Surgery
DX: E66.01 Morbid (severe) obesity due to excess calories (principal); E11.9 Type 2 diabetes mellitus without complications; E78.00 Pure hypercholesterolemia, unspecified
CPT/HCPCS: 74246

== ENCOUNTER → 2023-12-09 09:34 | Outpatient (BNV) | payer OTHER, SELFPAY | PROVIDERS: PCP Nurse Practitioner Family; Visit Provider Physician Assistant Surgical | DX: E66.01 Morbid (severe) obesity due to excess calories (principal); Z01.818 Encounter for other preprocedural examination | CPT/HCPCS: 74246 ==

== ENCOUNTER 2024-01-05 08:08 | Outpatient (REF) | payer OTHER, SELFPAY ==
[2024-01-05 16:40] LABS: H Pylori Breath Test Negative (Negative)
== END 2024-01-05 08:09 | disposition home or self-care (01) ==
LOC: HO.LNP 08:08
PROVIDERS: Surgery; PCP Nurse Practitioner Family; Visit Provider Physician Assistant Surgical
DX: E66.01 Morbid (severe) obesity due to excess calories (principal); E78.00 Pure hypercholesterolemia, unspecified; E11.9 Type 2 diabetes mellitus without complications
CPT/HCPCS: 83013; 99211

== ENCOUNTER 2024-01-19 16:27 | Outpatient (AMB) | payer OTHER, SELFPAY ==
--- NOTE | 2024-01-19 16:41 | A.OFFVIS_ITS ---
VS Expanded 01/19/24 16:42 Height 5 ft 5 in Weight 231 lb 4 oz BMI 38.5 Intake Visit Reasons: TV Pre Op LSG 02/02/24 Assistant Front End Manager Required: No Allergies No Known Allergies Allergy (Verified 11/21/23 16:32) Medication List - Last Reconciled 01/19/24 by DERRICK Ibarra atorvastatin 20 mg PO BEDTIME 30 days cholecalciferol (vitamin D3) 125 mcg PO DAILY levonorgestrel (Mirena) intrauterine olanzapine 10 mg PO QPM thiamine HCl (vitamin B1) 100 mg PO DAILY 90 days trazodone TAKE 1 TABLET BY MOUTH TWICE A DAY NEEDED vitamin A palmitate 10,000 units PO DAILY 90 days HPI Comments Details: Patient is a very pleasant 30-year-old female who returns to the office today in follow-up. She initiated the Surgical weight loss program on 10/17/2023 with a weight of 257.4 lb and a BMI of 42.8. Current weight is 231.4 lb with a BMI of 38.5. This corresponds to a weight loss of 26 lb or 10.1% total body weight loss. She reports waking at approximately 08:00 and going to bed around 22:00. She is using pure protein powder as her shake supplement. [facility] Medical History Bipolar disorder Elevated cholesterol Diabetes HPV (human papilloma virus) infection Depression Anxiety Surgical History No pertinent past surgical history Family History Other Mental health disorder Substance abuse Social History Household Members: Children Housing: Apartment 75 years or older and lives alone: No Alcohol intake: current Alcohol intake frequency: a few times a month Patient Tobacco Use Status: Current everyday Tobacco user Tobacco use type: Cigarette Cigarette Packs Per Day: 5 Cigarettes Per Day: 100.0 Years Smoked: 15 e-Cigarette/Vaping Use: Never Used Second Hand Smoke Exposure: Yes Substance Use Type: Marijuana service: No Current occupational status: employed 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 Assessment & Plan Assessment & Plan (1) Obesity (BMI 30-39.9): Code(s): E66.9 - Obesity, unspecified Category: Medical Plan: 1. Plan for lap sleeve gastrectomy including upper GI endoscopy . If diaphragmatic or ventral hernias are present at time of surgery, these will be repaired laparoscopically as well. 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 I emphasized the importance of close follow-up, adherence to instructions and good communication. So far she has proven to be an excellent communicator and very compliant with all our directions accomplishing a great weight loss. I believe that she is an excellent candidate and she is ready. 2. Preop prescriptions were provided and explained the purpose of each one. Need to be purchased preop. Start Pantoprazole now as you get it from the pharmacy, 1 pill per day. Sucralfate and Zofran are for after surgery. 3. Bowel prep: please do 7 packets ?of Miralax mixing each one with an 8oz glass of water on 01/31/24 and the same amount on 02/01/24 4. Needs to purchase 1oz medicine cups . 5. Needs to purchase Children's liquid Tylenol for postop pain control. 6. Stop all the vitamins on 01/20/24. Avoid aspirin, motrin, Advil, Aleve, Ibuprofen, Naproxyn. Tylenol is OK. Stop metformin today 7. Purchase the Celebrate 4:1 protein shakes from the hospital's gift shop. 8. Will do basic preop blood work-up on 01/26/24 fasting for 12 hours and is scheduled to see the Anesthesiologist prior to the day of surgery. 9. You must do the lab testing as scheduled 10. Importance of adherence to postop follow-up and recommendations was underscored and she understands that. 11. Stop food and bars as of 01/20/24 and continue with 5 pure protein shakes (1/2 scoop in 8oz almond milk) at 9am-11am, 12pm-2pm, 3pm-5pm, 6pm-8pm and one more Pure protein shake with ONE scoop in 8oz of almond milk at 8pm-10pm 12. No soups, broths or V8 13. Please take at the day of surgery the following medications:?none 14. Be sure to continue to send your weight measurements to Dr Patiño weekly, and the most important weight measurement to send him is the day of surgery. 15. Stop any control pills and don't use them for one month after surgery 16. Absolutely no smoking or vaping, or marijuana until the surgery and for at least the first 4 weeks. Only nicotine patches are allowed. 17. The patient's?medical?history has been reviewed and they are considered low risk for post op DVT and therefore DVT prophylaxis is not considered necessary. Travel after surgery was reviewed. The patient has not disclosed any travel plans during the first 30 days after surgery and they have been advised that within the first 30 days after surgery any bus, plane, train or car travel over 2 hours in duration is contraindicated due to the possibility of developing blood clots from immobility. Any travel, needs to include periods of ambulation of 10 minutes in duration every 2 hours.? Patient was instructed to discuss any plans for travel during this period with their bariatric surgeon.? Orders: Orders TSH reflex Free T4 Today Z.818 - Encounter for other preprocedural examination Vitamin B1 Today Z818 - Encounter for other preprocedural examination Type and Screen Today Z8 - Encounter for other preprocedural examination Vitamin B12 Today Z.818 - Encounter for other preprocedural examination C Reactive Protein Today Z.818 - Encounter for other preprocedural examination Complete Blood Count Auto Diff Today Z.818 - Encounter for other preprocedural examination Comprehensive Met. Panel Today Z.818 - Encounter for other preprocedural examination Vitamin A Today Z.818 - Encounter for other preprocedural examination Hemoglobin A1c Today Z.818 - Encounter for other preprocedural examination Prothrombin Time INR Today Z.818 - Encounter for other preprocedural examination Lipid Panel Today Z.818 - Encounter for other preprocedural examination Partial Thromboplastin Time Today Z.818 - Encounter for other preprocedural examination Vitamin D 25-OH Total Today Z01.818 - Encounter for other preprocedural examination Ferritin Today Z01.818 - Encounter for other preprocedural examination Zinc Today Z01.818 - Encounter for other preprocedural examination IRON PROFILE Today Z01.818 - Encounter for other preprocedural examination Medications: New ondansetron 4 mg PO Q6H PRN 14 tabs 0RF nausea and vomiting sucralfate 10 mL PO BID 420 mL 3RF polyethylene glycol 3350 (Miralax) mix each packet with 8 oz of water. Do 7 packets on 01/31/24. Repeat on 02/01/24 17 grams PO DAILY 14 ea 0RF pantoprazole 40 mg PO DAILY 120 tabs 0RF
[2024-01-19 16:42] VITALS: BMI 38.5
== END 2024-01-19 17:12 | disposition home or self-care (01) ==
LOC: HO.HBS 16:27
PROVIDERS: PCP Nurse Practitioner Family; Visit Provider Physician Assistant Surgical
DX: E66.9 Obesity, unspecified (principal)
CPT/HCPCS: 99213

== ENCOUNTER → 2024-01-19 16:27 | Outpatient (BNVA) | payer OTHER, SELFPAY | PROVIDERS: PCP Nurse Practitioner Family; Visit Provider Physician Assistant Surgical ==

== ENCOUNTER → 2024-01-26 09:41 | Outpatient (BNVA) | payer OTHER, SELFPAY | PROVIDERS: PCP Nurse Practitioner Family; Visit Provider Surgery ==

== ENCOUNTER 2024-02-02 06:05 | Inpatient (IN) | payer OTHER, SELFPAY ==
[2024-01-24 12:17] VITALS: BMI 37.7
[2024-01-26 09:39] LABS: MANUAL DIFF FLAG NO
[2024-01-26 09:51] LABS: Basophils Percent Auto 0.4 % (0-2); Eosinophils Absolute Auto 0.1 X10*3/uL (0.0-0.4); Eosinophils Percent Auto 0.6 % (0-4); Hematocrit 40.6 % (37.0-47.0); Hemoglobin 13.9 g/dl (12.0-16.0); Imm Gran Abs Auto 0.03 X10*3/uL (0.00-0.03); Imm Gran Pct Auto 0.4 % (0.0-0.4); Lymphocytes Absolute Auto 1.9 X10*3/uL (1.2-4.9); Lymphocytes Percent Auto 22.9 % (20-40); Mean Corpuscular HGB Conc 34.2 g/dl (31.0-35.0); Mean Corpuscular Volume 90.4 fL (80.0-98.0); Mean Platelet Volume 9.3 fL (9.4-12.3); Monocytes Absolute Auto 0.6 X10*3/uL (0.1-1.2); Monocytes Percent Auto 6.6 % (2-11); Neutrophils Absolute Auto 5.7 x10*3/uL (2.0-8.3); Neutrophils Percent Auto 69.1 % (45-73); Platelet Count 286 X10*3/uL (160-400); Red Blood Count 4.49 X10*6/uL (4.20-5.50); Red Cell Distribution Width 11.9 % (11.0-16.0); White Blood Count 8.3 X10*3/uL (4.8-10.8)
[2024-01-26 09:58] LABS: INTERNATIONAL NORM RATIO 1.1 (0.9-1.1); Prothrombin Time 13.8 SEC (11.1-13.3)
[2024-01-26 09:59] LABS: Estimated Average Glucose 105 mg/dL; Hemoglobin A1c % 5.3 % (<6.0)
[2024-01-26 10:01] LABS: Partial Thromboplastin Time 32.3 SEC (26.0-36.8)
[2024-01-26 10:32] LABS: Alanine Aminotransferase 17 U/L (0-31); Albumin Level 4.4 g/dL (3.5-5.0); Alkaline Phosphatase 87 U/L (39-117); Anion Gap 15 (12-20); Aspartate Amino Transferase 25 U/L (5-31); Bilirubin Total 0.7 mg/dL (0.0-1.0); Blood Urea Nitrogen 9 mg/dL (9-16); C Reactive Protein 0.31 mg/dL (< or = 0.50); Calcium 9.4 mg/dL (8.4-10.2); Carbon Dioxide 25 mmol/L (22-29); Chloride 104 mmol/L (96-108); Cholesterol 160 mg/dL (<200); Creatinine Clr Calc Pharmacy 119.3; Estimated Glomerular Filt Rate > 60; Glucose Random 104 mg/dL (60-115); HDL Cholesterol 40 mg/dL (>40); Iron 82 mcg/dL (30-160); LDL Cholesterol Calculated 105 mg/dL (<100); Percent Iron Saturation 26 % (15-50); Potassium 4.5 mmol/L (3.3-5.1); Sodium 139 mmol/L (135-145); Total Iron Binding Capacity 310 mcg/dL (228-428); Total Protein 7.9 g/dL (6.5-8.0); Triglycerides 75 mg/dL (<150); Unsaturated Iron Binding 228 ug/dL
[2024-01-26 10:48] LABS: Vitamin B12 1358 pg/mL (200-900)
[2024-01-26 10:51] LABS: Ferritin 256 ng/mL (10-122); TSH reflex Free T4 1.24 uIU/mL (0.32-4.0)
[2024-01-31 01:18] LABS: Zinc 91 mcg/dL (60-130)
[2024-02-01 17:19] LABS: Vitamin A 33 mcg/dL (38-98)
[2024-02-02] VITALS (10 sets, daily range): BP systolic 119–162; BP diastolic 62–90; PULSE 72–102; RESP 16–20; TEMP 36.1–36.9; O2SAT 98–100
--- OUTSIDE RECORDS SUMMARY | 2024-02-02 06:10 | XMS_ITS | Continuity of Care Document ---
Author Organization [facility] Address [address] [place] [address]- Care Team Providers Care Economics Faculty Member Name Role Phone Vesna GORE, Conchita Shelton Primary Care Physician Encounter [facility] Date(s): 02/15/20 - 03/16/20 [facility] [address] [place] [id number]- Attending Physician: Admbryan, Stacie Admitting Physician: AdmtrStacie Referring Physician: Admtr, Ar8 Allergies, Adverse Reactions, Alerts Substance Reaction Severity Status NKA Active Immunizations Given and Recorded Vaccine Date Status Refusal Reason influenza virus vaccine, inactivated 1 03/08/19 Gi adrian tetanus/diphtheria/pertussis, acel(Tdap) 2 12/04/18 Given Measles/Mumps/Rubella Virus Vaccine 02/17/10 Recor ded diphtheria/tetanus/pertussis, acel(DTaP) 02/17/10 Recorded 1Result Comment: [facility]# [id number] 2Result Comment: [facility]# [id number] Medications ALPRAZolam 0.5 mg oral tablet 0.5 mg, 1, tablet, By Mouth, 2 times a day, for 30 days, # 60 tablet, Refills 2, Tot. Refills 2, Acute 05/15/20 8:40:00 EST, 02/15/20 8:40:00 EDT, Route to Pharmacy Electronically, [facility]/pharmacy #[id number], 167, cm, 02/15/20 7:51:00 EDT, Height Start Date: 02/15/20 Stop Date: 05/15/20 Status: Ordered buPROPion 100 mg/12 hours (SR) oral tablet, extended release 1 tablet = 100 mg, By Mouth, 2 times a day, # 60 tablet, 5 Refills, Maintenance, 02/15/20 8:38:00 EDT, [facility], 167, cm, 02/15/20 7:51:00 EDT, Height Start Date: 02/15/20 Stop Date: 08/13/20 Status: Ordered escitalopram 20 mg oral tablet 1 tablet = 20 mg, By Mouth, Daily, # 30 tablet, 2 Refills, Maintenance, 03/26/20 10:10:00 EDT, Tablet, [facility], 167, cm, 02/15/20 7:51:00 EDT, Height Start Date: 03/26/20 Stop Date: 06/24/20 Status: Ordered Problem List Condition Effective Dates Status Health Status Inform ant TY (generalized anxiety disorder)(Confirmed) Active Class 2 obesity with body ma ss index (BMI) of 36.0 to 36.9 in adult(Confirmed) Active Depression, (Confirmed) Active Tinea corporis(Confirmed) Active Social History Social History Type Response Smoking Status Former smoker, quit more than 30 days ago entered on: 07/23/19 Sex
--- OUTSIDE RECORDS SUMMARY | 2024-02-02 06:10 | XMS_ITS | Continuity of Care Document ---
Author Organization [facility] Address [address] [place] [address]- Care Team Providers Care Broiler Supervisor Name Role Phone Vesna GORE, Conchita Shelton Primary Care Physician [phone] Encounter [facility] Date(s): 05/30/19 - 06/09/19 [facility] [address] [place] [address]- Attending Physician: Stacie Howell Admitting Physician: AdmStacie adams Referring Physician: AdmtrStacie Allergies, Adverse Reactions, Alerts Substance Reaction Severity Status NKA Active Immunizations Given and Recorded Vaccine Date Status Refusal Reason influenza virus vaccine, inactivated 1 03/08/19 Gi adrian tetanus/diphtheria/pertussis, acel(Tdap) 2 12/04/18 Given Measles/Mumps/Rubella Virus Vaccine 02/17/10 Recor ded diphtheria/tetanus/pertussis, acel(DTaP) 02/17/10 Recorded 1Result Comment: [facility]# [id number] 2Result Comment: [facility]# [id number] Medications escitalopram 20 mg oral tablet 1 tablet = 20 mg, By Mouth, Daily, # 30 tablet, 5 Refills, Maintenance, 12/04/18 9:06:42 EDT, Tablet Start Date: 12/04/18 Stop Date: 06/02/19 Status: Ordered Problem List Condition Effective Dates Status Health Status Inform ant TY (generalized anxiety disorder)(Confirmed) Active Class 2 obesity with body ma ss index (BMI) of 36.0 to 36.9 in adult(Confirmed) Active Depression, (Confirmed) Active Tinea corporis(Confirmed) Active Social History Social History Type Response Smoking Status 5-9 cigarettes (charles lorenzana 1/4 to 1/2 pack)/day in last 30 days entered on: 03/08/19 Sex
--- OUTSIDE RECORDS SUMMARY | 2024-02-02 06:10 | XMS_ITS | Continuity of Care Document ---
Author Organization [facility] Address [address] [place] [address]- Care Team Providers Care Gluer Machine Setup Operator Name Role Phone Conchita Malagon MD Primary Care Physician Encounter [facility] Date(s): 02/15/20 - 02/22/20 [facility] [address] [place] [id number]- Attending Physician: Conchita Malagon MD Allergies, Adverse Reactions, Alerts Substance Reaction Severity Status NKA Active Immunizations Given and Recorded Vaccine Date Status Refusal Reason influenza virus vaccine, inactivated 1 03/08/19 Gi adrian tetanus/diphtheria/pertussis, acel(Tdap) 2 12/04/18 Given Measles/Mumps/Rubella Virus Vaccine 02/17/10 Recor ded diphtheria/tetanus/pertussis, acel(DTaP) 02/17/10 Recorded 1Result Comment: [facility]# [id number] 2Result Comment: [facility]# [id number] Medications ALPRAZolam 0.5 mg oral tablet 0.5 mg, 1, tablet, By Mouth, 2 times a day, for 30 days, # 60 tablet, Refills 2, Tot. Refills 2, Acute 05/15/20 8:40:00 EST, 02/15/20 8:40:00 EDT, Route to Pharmacy Electronically, [facility]/pharmacy #1230, 167, cm, 02/15/20 7:51:00 EDT, Height [...] Active Depression, (Confirmed) Active Tinea corporis(Confirmed) Active Vital Signs Most recent to oldest [Reference Range]: 1 Height 167 cm (02/15/20 7:51 AM) Social History Social History Type Response Smoking Status Former smoker, quit more than 30 days ago entered on: 07/23/19 Sex
--- OUTSIDE RECORDS SUMMARY | 2024-02-02 06:10 | XMS_ITS | Continuity of Care Document ---
Author Organization [facility] Address [address] [place] [id number]- Care Team Providers Care Keeper Head Name Role Phone Vesna GORE, Conchita Shelton Primary Care Physician [facility] Date(s): [facility]02[facility]21 [facility] [address] [place] [address]- [place] Allergies, Adverse Reactions, Alerts No Known Allergies Immunizations Given and Recorded Vaccine Date Status Refusal Reason influenza virus vaccine, inactivated 1 03/08/19 Gi adrian tetanus/diphtheria/pertussis, acel(Tdap) 2 12/04/18 Given Measles/Mumps/Rubella Virus Vaccine 02/17/10 Recor ded diphtheria/tetanus/pertussis, acel(DTaP) 02/17/10 Recorded 1Result Comment: [facility]# [id number] 2Result Comment: [facility]# [id number] Medications buPROPion 100 mg/12 hours (SR) oral tablet, extended release 1 tablet = 100 mg, By Mouth, 2 times a day, # 60 tablet, 2 Refills, Maintenance, 09/22/20 14:22:00 EDT, [facility], 167, cm, 02/15/20 7:51:00 EDT, Height Start Date: 09/22/20 Stop Date: 12/21/20 Status: Ordered escitalopram 20 mg oral tablet 1 tablet = 20 mg, By Mouth, Daily, # 30 tablet, 0 Refills, Maintenance, 06/02/20 13:53:00 EST, Tablet, [facility], 167, cm, 02/15/20 7:51:00 EDT, Height Start Date: 06/02/20 Stop Date: 07/02/20 Status: Ordered Problem List Condition Effective Dates [...]
--- OUTSIDE RECORDS SUMMARY | 2024-02-02 06:10 | XMS_ITS | Continuity of Care Document ---
Author Organization [facility] Address [address] [place] [address]- Care Team Providers Care Product Lister Name Role Phone Vesna GORE, Conchita M Primary Care Physician Encounter [facility] [id number] Date(s): 02/24/22 - 03/26/22 [facility] [address] [place] [address]- Attending Physician: Stacie Howell Admitting Physician: AdmStacie adams Referring Physician: AdmtrStacie Allergies, Adverse Reactions, Alerts No Known Allergies Immunizations Given and Recorded Vaccine Date Status Refusal Reason influenza virus vaccine, inactivated 1 03/08/19 Gi adrian tetanus/diphtheria/pertussis, acel(Tdap) 2 12/04/18 Given Measles/Mumps/Rubella Virus Vaccine 02/17/10 Recor ded diphtheria/tetanus/pertussis, acel(DTaP) 02/17/10 Recorded 1Result Comment: [facility]# [id number] 2Result Comment: [facility]# [id number] Medications buPROPion 100 mg/12 hours (SR) oral [...] Date: 07/02/20 Status: Ordered Problem List Condition Confirmation Course Effective Dates Status Health St atus Informant TY (generalized anxiety disorder) Confirmed Active Class 2 obesity with body mass index (BMI) of 36.0 to 36.9 in adult Confirmed Active Depression, Confirmed Active Tinea corporis Confirmed Active Social History Social History Type Response Smoking Status Former smoker, quit more than 30 days ago entered on: 07/23/19 Sex Patient Care team information Personnel Name: Vesna GORE, Conchita Shelton Address: Address: [address] [place] [address] [place] [address]
--- OUTSIDE RECORDS SUMMARY | 2024-02-02 06:10 | XMS_ITS | Continuity of Care Document ---
Author Organization [facility] Address [address] [place] [address]- Care Team Providers Care Pbx Inspector Name Role Phone Vesna GROE, Conchita Shelton Primary Care Physician Encounter [facility] Date(s): 07/23/19 - 08/02/19 [facility] [address] [place] [address]- Attending Physician: Stacie Howell Admitting Physician: AdmStacie adams Referring Physician: AdmtrStacie Allergies, Adverse Reactions, Alerts Substance Reaction Severity Status NKA Active Immunizations Given and Recorded Vaccine Date Status Refusal Reason influenza virus vaccine, inactivated 1 03/08/19 Gi adrian tetanus/diphtheria/pertussis, acel(Tdap) 2 12/04/18 Given Measles/Mumps/Rubella Virus Vaccine 02/17/10 Recor ded diphtheria/tetanus/pertussis, acel(DTaP) 02/17/10 Recorded 1Result Comment: [facility]# [id number] 2Result Comment: [facility]# [id number] Medications escitalopram 20 mg oral tablet 1 [...]
--- OUTSIDE RECORDS SUMMARY | 2024-02-02 06:10 | XMS_ITS | Continuity of Care Document ---
Author Organization [facility] Address [address] [place] [address]- Care Team Providers Care Administrative Operations Coordinator Name Role Phone Conchita Malagon MD Primary Care Physician Encounter [facility] Date(s): 03/01/19 - 06/29/19 [facility] [address] [place] [address]- Attending Physician: Conchita Malagon MD Allergies, Adverse Reactions, Alerts Substance Reaction Severity Status NKA Active Immunizations Given and Recorded Vaccine Date Status Refusal Reason influenza virus vaccine, inactivated 1 03/08/19 Gi adrian tetanus/diphtheria/pertussis, acel(Tdap) 2 12/04/18 Given Measles/Mumps/Rubella Virus Vaccine 02/17/10 Recor ded diphtheria/tetanus/pertussis, acel(DTaP) 02/17/10 Recorded 1Result Comment: [facility]# [id number] 2Result Comment: [facility]# [id number] Medications escitalopram 20 mg oral tablet 1 [...] History Type Response Smoking Status 5-9 cigarettes (betw een 1/4 to 1/2 pack)/day in last 30 days entered on: 03/08/19 Sex
--- OUTSIDE RECORDS SUMMARY | 2024-02-02 06:10 | XMS_ITS | Continuity of Care Document ---
Author Organization [facility] Address [address] [place] [address]- Care Team Providers Care Thinner Sprayer Name Role Phone Vesna GORE, Conchita Shelton Primary Care Physician [phone] Encounter [facility]BR [id number] Date(s): 09/22/20 [facility] [address] [place] [address]- Allergies, Adverse Reactions, Alerts Substance Reaction Severity Status NKA Active Immunizations Given and Recorded Vaccine Date Status Refusal Reason influenza virus vaccine, inactivated 1 03/08/19 Gi adrian tetanus/diphtheria/pertussis, acel(Tdap) 2 12/04/18 Given Measles/Mumps/Rubella Virus Vaccine 02/17/10 Recor ded diphtheria/tetanus/pertussis, acel(DTaP) 02/17/10 Recorded 1Result Comment: [facility]# [id number] 2Result Comment: [facility]# [id number] Medications buPROPion 100 mg/12 hours (SR) oral [...]
--- OUTSIDE RECORDS SUMMARY | 2024-02-02 06:10 | XMS_ITS | Continuity of Care Document ---
Author Organization [facility] Address [address] [place] [address]- Care Team Providers Care Alarm Service Technician Name Role Phone Conchita Malagon MD Primary Care Physician Encounter [facility] Date(s): 07/23/19 - 07/30/19 [facility] [address] [place] [address]- Encounter Diagnosis Right lower quadrant pain(Discharge Diagnosis) - 07/23/19 Attending Physician: Carl Grubbs Referring Physician: Conchita Malagon MD Allergies, Adverse Reactions, Alerts Substance Reaction Severity Status NKA Active Immunizations Given and Recorded Vaccine Date Status Refusal Reason influenza virus vaccine, inactivated 1 03/08/19 Gi adrian tetanus/diphtheria/pertussis, acel(Tdap) 2 12/04/18 Given Measles/Mumps/Rubella Virus Vaccine 02/17/10 Recor ded diphtheria/tetanus/pertussis, acel(DTaP) 02/17/10 Recorded 1Result Comment: [facility]# [id number] 2Result Comment: [facility]# [id number] Medications escitalopram 20 mg oral tablet 1 [...] Active Depression, (Confirmed) Active Tinea corporis(Confirmed) Active Diagnosis Diagnosis Type Effective Dates Health Status Cl inical Service Informant Right lower quadrant pain Discharge Diagnosis 07/23/19 Vital Signs Most recent to oldest [Reference Range]: 1 Height 167 cm (07/23/19 8:46 AM) Weight 103.3 kg (07/23/19 8:46 AM) Oxygen Saturation [94-100 %] 100 % (07/23/19 8:46 AM) Pulse Rate [55-90 bpm] 74 bpm (07/23/19 8:46 AM) Body Mass Index [18.5-24.99] 37.04 *>HHI* (07/23/19 8:46 AM) Blood Pressure [90-138/55-84 mm Hg] 134/ 74mm Hg (07/23/19 8:46 AM) Temperature [96.8-100.4 DegF] 99.4 DegF (07/23/19 8:46 AM) Liters per Minute 0 L/min (07/23/19 8:46 AM) Mode of Delivery (Oxygen) Room air (07/23/19 8:46 AM) Blood pressure sites Arm, left (07/23/19 8:46 AM) Weight Obtained Via Standing scale (07/23/19 8:46 AM) Social History Social History Type Response Smoking Status Former smoker, quit more than 30 days ago entered on: 07/23/19 Sex
--- NOTE | 2024-02-02 07:00 | HO.ANESPROP2 ---
HPI - Anesthesia Eval Consult details Narrative: 38 yo F presenting for sleeve gastrectomy with EGD. PMFSH Active Problems Active Problems: All Active Problems Pre-op evaluation (Acute) Obesity (BMI 30-39.9) (Acute) H. pylori infection (Acute) Vitamin B1 deficiency (Acute) Vitamin A deficiency (Acute) Vitamin D deficiency (Acute) Type 2 diabetes mellitus (Acute) Elevated fasting glucose (Acute) Hypercholesterolemia (Acute) Smoking trying to quit (Acute) Laboratory tests ordered as part of a complete physical exam (CPE) (Acute) Family history of diabetes mellitus (Acute) High cholesterol (Acute) Morbid obesity (Acute) Elevated blood pressure reading (Acute) Normal physical exam (Acute) Bipolar affective, mixed, severe (Acute) Anxiety (Acute) Depression (Acute) Past Medical History Medical History (Updated 01/24/24 @ 12:20 by Yamileth Uribe RN) Bipolar disorder Elevated cholesterol Diabetes HPV (human papilloma virus) infection Depression Anxiety Family History Family History Other Mental health disorder Substance abuse Family history of problems with anesthesia: No Surgical History Surgical History (Updated 01/23/24 @ 11:39 by Yamileth Uribe RN) History of esophagogastroduodenoscopy (EGD) History of Problems with Anesthesia: No Social History Social History (Updated 01/24/24 @ 12:23 by Yamileth Uribe RN) Household Members: Children Household Members Other:: minor children Housing: Apartment Are you a primary nonfarm animal caretaker to a significant other at home: Yes Do you presently have visiting nurse or other home services: No Alcohol intake: current Alcohol intake frequency: holidays/special occasions only Patient Tobacco Use Status: Former Tobacco user Tobacco use type: Cigarette Cigarette Packs Per Day: 0.25 Cigarettes Per Day: 5.0 Years Smoked: 20 Smoked in Last 30 Days: No e-Cigarette/Vaping Use: Never Used Second Hand Smoke Exposure: Yes Substance Use Type: Former Substance User and Marijuana Substance Use Type Other:: last used 01/20/24 Have you been hit, kicked, punched, or otherwise hurt by someone within the past year? 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 Meds Allergies Allergy/AdvReac Type Severity Reaction Status Date / Time No Known Allergies Allergy Verified 02/02/24 06:17 Active Medications: Current Medications Lactated Ringer's (Lr) 1,000 mls @ 999 mls/hr IV .Q1H1M KACY Stop: 02/02/24 08:15 Home Medications ?Medication ?Instructions ?Recorded ?Confirmed ?Last Taken ?Type levonorgestrel 21 mcg/24 hr (up to 1 device intrauterine ONCE 04/09/22 01/24/24 Unknown History 8 years) 52 mg intrauterine device (Mirena) Exam Exam Date and Time: February 02, 2024 0700 Height,Weight and Vital Signs: Height 5 ft 5 in Weight 102.784 kg Last Vital Signs Temp 97.0 F 02/02/24 06:34 Pulse 77 02/02/24 06:34 Resp 16 02/02/24 06:34 BP 119/76 02/02/24 06:34 Pulse Ox 98 02/02/24 06:34 O2 Del Method Room Air 02/02/24 06:34 Pertinent Lab Results Pertinent Lab Results: Laboratory Tests 01/26/24 01/26/24 09:27 09:39 WBC 8.3 RBC 4.49 Hgb 13.9 Hct 40.6 MCV 90.4 MCH 31.0 MCHC 34.2 RDW 11.9 Plt Count 286 MPV 9.3 L Immature Gran % (Auto) 0.4 Neut % (Auto) 69.1 Lymph % (Auto) 22.9 [place] % (Auto) 6.6 Eos % (Auto) 0.6 Baso % (Auto) 0.4 Lymph # (Auto) 1.9 [place] # (Auto) 0.6 Eos # (Auto) 0.1 Baso # (Auto) 0.0 Abs Immat Gran (auto) 0.03 Absolute Neuts (auto) 5.7 Absolute Nucleated RBC 0.000 Nucleated RBC % (auto) 0.0 PT 13.8 H INR 1.1 APTT 32.3 Sodium 139 Potassium 4.5 Chloride 104 Carbon Dioxide 25 Anion Gap 15 BUN 9 Creatinine 0.76 Estim Creat Clear Calc 119.3 Estimated GFR > 60 Random Glucose 104 Estimat Average Glucose 105 Hemoglobin A1c % 5.3 Calcium 9.4 Iron 82 TIBC 310 % Saturation 26 Unsat Iron Binding 228 Ferritin 256 H Total Bilirubin 0.7 AST 25 ALT 17 Alkaline Phosphatase 87 C-Reactive Protein 0.31 Total Protein 7.9 Albumin 4.4 Triglycerides 75 Cholesterol 160 LDL Cholesterol, Calc 105 H HDL Cholesterol 40 L Vitamin A 33 L Vitamin B12 1358 H 25-OH Vitamin D Total 54.0 TSH 1.24 Zinc 91 Blood Type B Positive Antibody Screen NEGATIVE Airway Mallampati Class: II TM Dist: >3cm Neck ROM: Full Loose/Missing/Broken Teeth: No (patient denies any loose or broken teeth) Heart: S1S2 Lungs: CTAB Assessment and Plan Assessment Anesthesia Assessment: Anesthesia Plan Discussed and Chart Reviewed Final Anesthetic Review Family History of Problems with Anesthesia: No History of Problems with Anesthesia: No NPO: Yes ASA Class: III Final Preanesthetic Review: No Changes in Pt Med Stat, Meds/Allgs Chart Reviewed, Consent Obtained/Reviewed and Anes Risks/Benef Reviewed Patient Risk: Intermediate Procedure Risk: Intermediate Anesthetic Plan Anesthetic Plan: GA and Agree w/ Assess. and Plan Disposition: Standard PACU
[2024-02-02] MEDS: Lactated Ringers 1,000 ML 999 ML IV (07:02)
[2024-02-02] MEDS: Aprepitant 32 MG/4.4 ML VIAL IVPUSH (07:02)
[2024-02-02] MEDS: Lactated Ringers 1,000 ML 80 ML IVCONT (07:02)
[2024-02-02 07:05] LABS: UPreg QC Valid YES; Urine Pregnancy NEGATIVE (NEGATIVE)
[2024-02-02 07:10] LABS: Glucose, Whole Blood 81 mg/dL (60-115)
--- NOTE | 2024-02-02 07:10 | PHA.MEDREC ---
Pharmacy Consult ? Medication Reconciliation Pharmacy has completed the medication reconciliation. Reviewed med rec done by nursing
--- NOTE | 2024-02-02 07:28 | MHC.SHP ---
Pre-Procedural Eval Section A - 24 Hr Update-Section A only Date of Service: 02/02/24 The patient is an INPATIENT: Yes The patient has been examined within 24 hours of the surgical procedure. The History & Physical has been completed within 30 days and I have reviewed it.: Yes Section B - Complete if H&P > 30 days Chief Complaint: Obesity Relevant Family History (Specify if Yes): No Relevant Social History: None Present Medications: None Medical History: No relevant PMH History of Previous Operations: No relevant previous surgery Allergies: Allergies Allergy/AdvReac Type Severity Reaction Status Date / Time No Known Allergies Allergy Verified 02/02/24 06:17 Review of Systems Sugical H&P ROS: Negative: Constitution, Cardiovascular, Respiratory, Neurological, Psychiatric, Hem-Onc, Allergic/Immunologic, Gastrointestinal, Genitourinary, Musculoskeletal, Integumentary, Endocrine and Eyes/Ears/Nose/Throat Exam Surgical H&P Exam: Normal: HEENT, Normal: Heart, Normal: Lungs, Normal: Extremities, Normal: Abdomen, Normal: Skin and Normal: Neurological Plan Diagnosis/Plan: Unchanged I have reviewed the history and physical and performed a pertinent physical examination on my patient. No changes have occurred unless specified. Time Spent With Patient Time: Total time managing care of this patient today ____ minutes.
--- NOTE | 2024-02-02 07:32 | PM.OP ---
Brief Operative Note Date of Service: 02/02/24 Pre-op diagnosis: Severe obesity with comorbidities (see below) Post-op diagnosis: same (& abdominal adhesions) Procedure: INITIAL PATIENT BMI ON PRESENTATION AT OUR OFFICE: 42.8 kg/m2 LAST BMI BEFORE SURGERY: 36.9 kg/m2 COMORBIDITIES: hyperlipidemia, non-insulin dependent diabetes, depression, anxiety, bipolar disorder, GERD, liver steatosis ?The patient presented to the Weight Management Program with significant obesity that was negatively impacting the patient's comorbidities as listed above.? The program is a phased program with a special focus on preoperative medical weight management to promote substantial weight loss and prepare the patients for the second phase of the program: bariatric surgery. The patient participated in an intensive weekly lifestyle ?intervention and exercise program during which the patient ?has lost between the initial office visit and the last preoperative visit 30.8lbs, or 11.97% of initial actual body weight. It was deemed appropriate for the patient to now have bariatric surgery. In light of the current Covid-19 pandemic and the well documented strong association of obesity and increased risk of worse outcomes if infected with Covid-19 (REFERENCES:https://pubmed.ncbi.nlm.nih.gov/88915607/,?https://pubmed.ncbi.nlm.nih.gov/98534768/), any delay in undergoing bariatric surgery may lead to the patient's worsening health condition and increased?risk of more severe Covid-19 disease if infected. In addition a recent?study from [facility] published in [employer] on 06/08/2021 ([email or web address]) found that, among patients with obesity, substantial weight loss achieved with surgery was associated with improved outcomes of COVID-19 infection. The findings suggest that obesity can be a modifiable risk factor for the severity of COVID-19 infection. In addition, the patient met the BMI-criteria for bariatric surgery based on the BMI on initial presentation. The patient should not be penalized for achieving such weight loss because ?it is not sustainable long-term without surgical intervention and it was achieved in preparation for bariatric surgery ?under my direction and based on my published research ([email or web address]).pdf and?[email or web address].soard.org/article/[email or web address](71)[email or web address]/pdf) ?that a 10% preoperative weight loss improves long-term weight loss after surgery and reduces perioperative complications.? Insurance carriers such as [facility] have endorsed my recommendations ?and have included in their policies criteria to include a 10% preoperative weight loss requirement. PROCEDURE: Esophago-gastroscopy, laparoscopic lysis of adhesions, laparoscopic sleeve gastrectomy and laparoscopic gastropexy INDICATIONS: This is a 38 year-old female who was electively scheduled for laparoscopic, possibly open sleeve gastrectomy. The risks and complications of the procedure were discussed with the patient in advance, particularly the possibility of ; pulmonary embolism; staple line leak; bleeding; GERD; cardiac, pulmonary, or renal complications; as well as long-term problems such as insufficient weight loss, vitamin deficiency, strictures, or ulcers. The patient understood all the risks, and was in agreement to proceed with surgery. DESCRIPTION OF PROCEDURE: After informed consent was obtained from the patient, the patient was given preoperative antibiotics, and was transferred to the operating room. After successful induction of general anesthesia, pneumatic compression devices were placed on both lower extremities. An upper endoscopy was performed next. The oropharynx and esophagus appeared to be within normal limits. There was no diaphragmatic hernia present. The stomach was entered. Then after all fluid and air were suctioned and the stomach was fully decompressed, the scope was withdrawn and secured in the mid esophagus. The patient was then prepped and draped in the usual sterile manner, and abdominal access was established at the right upper quadrant with the Varsha technique. A 12 mm blunt port was inserted, and the abdomen was insufflated with CO2 to a pressure of 15 mmHg. Under direct visualization, additional ports were placed, specifically two 5 mm Versi-step ports to the left upper quadrant, and a 5 mm Versi-Step port to the right upper quadrant. 1% lidocaine plain was used to infiltrate all port sites as well as all fascia defects. Using the EndoClose suture passer device, I placed a #1 Polysorb tie across the falciform ligament in order to retract it up against the abdominal wall and prevent injury of the ligament with our instruments during the procedure. Following that, the patient was placed in a steep reverse Trendelenburg position. An additional 5 mm port was placed to the right flank for the Mediflex retractor that was used to retract the left lobe of the liver. The gastro-esophageal fat pad was opened with the ultrasonic device (Thunderbeat, Olympus) and the anterior esophagus and hiatus were exposed. The angle of His was opened with the ultrasonic device the fundus of the stomach from any diaphragmatic and splenic attachments. I then opened the gastrocolic ligament between the transverse colon and the greater curvature of the stomach with the ultrasonic device to enter the lesser sac and facilitate the ligation of the short gastric vessels. I started at a mid-point along the greater curvature and using the Thunderbeat, all short gastric vessels were divided all the way to the angle of His until the left liz was completely dissected at its entirety. I then divided the gastro-colic ligament distally to a distance of about 3-4 cm proximal to the pylorus. There were extensive congenital adhesions between the pancreas and posterior gastric wall. Those were lysed completely with the ultrasonic device. Adhesiolysis took approximately 45 min to complete. The stomach was then divided transversely with one Endo SIA-45 purple and five SIA-60 articulating purple loads using the SIGNIA stapler and loads. Every effort was made that the gastric sleeve had a tubular shape and an even caliber throughout. Once the sleeve resection was completed, the staple line of the gastric sleeve was reinforced with Hemoclips. The resected stomach was retrieved without difficulty from the Varsha port. A gastropexy was then performed in order to prevent postoperative GERD and partial gastric volvulus. Several interrupted 2.0 Surgidac sutures were placed between the sleeve's staple line and the previously divided greater omentum and gastro-colic ligament using the Endo-Stitch device. ?An upper endoscopy was performed. There was no narrowing at the GE junction. The scope was easily advanced all the way to the pylorus which was clearly visualized. There was no narrowing anywhere and the sleeve's caliber was even throughout. The sleeve's staple line was inspected and there was no evidence of ischemia, bleeding or dehiscence. At that point the gastroscope was withdrawn from the patient?s mouth while we were decompressing the bowel and the stomach from any remaining air. I looked into the lesser sac to see how the sleeve was situating and it was situating well. There was no bleeding from the staple line, spleen, or short gastric vessels. The Mediflex retractor was removed, and the undersurface of the liver was inspected and there was no bleeding. The patient was placed in supine position. I closed the fascial defect of the 12 mm port site with a figure of eight #1 Polysorb suture. Then 30cc Ropivacaine plain with 10 mg of Dexamethasone were used to infiltrate the fascial closure as well as all skin incisions. At this point, the abdomen was deflated, all ports were removed under direct vision, and no bleeding was noted from any of the port sites. The skin incisions were irrigated with saline and were closed with 4-0 absorbable monofilament sutures. Steri-Strips and OpSites were used to cover all incisions. The patient was extubated and was transferred in stable condition to the recovery room for further care. I was present and performed all ruiz parts of the procedure. Mr Rodríguez was the public aid eligibility assistant. There were no residents to assist with this case. Dillon Patiño MD, PhD, FACS Surgeon: Brayan Patiño MD Anesthesia: GETA, local and other (TAP block) Was an Community Health Education Coordinator used for this Procedure?: No Community Health Education Coordinator: Ian Rodríguez Estimated blood loss (mL): 10 IV fluids (mL): 3,000 Urine output (mL): 0 (No Samaniego to record output) Pathology: other (Stomach) Condition: stable Disposition: PACU
--- NOTE | 2024-02-02 07:36 | P.PNGS_ITS ---
Subjective Subjective Date of Service: 02/03/24 Interval history: Feels well. Mild incisional pain. She is tolerating phase 1 bariatric diet Physical Exam 2 Vital Signs: Vital Signs: Last Vital Signs Temp 97.0 F 02/02/24 06:34 Pulse 77 02/02/24 06:34 Resp 16 02/02/24 06:34 BP 119/76 02/02/24 06:34 Pulse Ox 98 02/02/24 06:34 O2 Del Method Room Air 02/02/24 06:34 BMI result Body Mass Index 37.7 GI: Inspection: Yes normal to inspection, Yes incision (clean, dry and intact) and Yes obesity Palpation (GI): Soft to palpation Extrem: Right lower extremity: normal to inspection (no calf tenderness) L eft lower extremity: normal to inspection (no calf tenderness) Objective Data Active Medications Lactated Ringer's (Lr) 1,000 mls @ 999 mls/hr IV .Q1H1M [facility] Stop: 02/02/24 08:15 Last Admin: 02/02/24 07:02 Dose: 999 mls/hr Documented By: GEORGIE Lactated Ringer's (Lr) 1,000 mls @ 80 mls/hr IVCONT .[id number] [facility] Last Admin: 02/02/24 07:02 Dose: 80 mls/hr Documented By: GEORGIE Labs 02/03/24 06:34 02/03/24 06:34 Labs: Laboratory Results - last 24 hr 01/26/24 02/02/24 02/02/24 09:39 06:15 07:05 POC Glucose 81 Vitamin A 33 L Urine Test NEGATIVE Procedures Date of Service Date of Service: 02/03/24 Progress Note: A&P Assessment and plan (1) Obesity (BMI 30-39.9): Status: Acute Assessment and Plan: s/p laparoscopic sleeve gastrectomy, lysis of adhesions and gastropexy Doing well Will check am labs and if OK the patient will be discharged home (2) BMI 36.0-36.9,adult: Status: Acute (3) Depression: Status: Acute (4) Anxiety: Status: Acute (5) Bipolar affective, mixed, severe: Status: Acute (6) High cholesterol: Status: Acute (7) Type 2 diabetes mellitus: Status: Inactive (8) GERD (gastroesophageal reflux disease): Status: Acute (9) Steatosis, liver: Status: Acute (10) S/P laparoscopic sleeve gastrectomy: Status: Acute (11) Congenital intra-abdominal adhesions: Status: Acute Time Spent With Patient Time: Total time managing care of this patient today ____ minutes. Quality Stroke Does the patient have a stroke diagnosis?: No VTE Prior VTE?: No VTE Risk Level:: Surgical - moderate VTE Device Contraindication: N/A - Device Ordered VTE Drug Contraindication: Treatment Not Indicated
--- NOTE | 2024-02-02 10:33 | P.DS_ITS ---
DS: Providers Provider Date of Service: 02/03/24 Date of admission: 02/02/24 06:05 Primary care physician: Maye Wesley CNP DS: Diagnosis Discharge Diagnosis (1) Obesity (BMI 30-39.9): Status: Acute (2) BMI 36.0-36.9,adult: Status: Acute (3) Depression: Status: Acute (4) Anxiety: Status: Acute (5) Bipolar affective, mixed, severe: Status: Acute (6) High cholesterol: Status: Acute (7) Type 2 diabetes mellitus: Status: Inactive (8) GERD (gastroesophageal reflux disease): Status: Acute (9) Steatosis, liver: Status: Acute DS: Summary Hospital Course Hospital Course: ADMITTING DIAGNOSIS: obesity, bipolar ,anxiety, epression, hld ? DISCHARGE DIAGNOSIS: same, s/p laparoscopic sleeve gastrectomy ? PAST SURGICAL HISTORY: none ? PROCEDURE: upper endoscopy, laparoscopic sleeve gastrectomy ? DISCHARGE SUMMARY: ? History of Present Illness: ? The patient is a?38 year-old woman with a BMI of?42.8 kg/m2 and associated co- morbidities as described above. The patient had extensive work-up,lost?26 lbs preoperatively and was electively scheduled for laparoscopic, possible open sleeve gastrectomy and gastropexy. Risks and complications of the surgery were discussed with the patient in advance, particularly the possibility of , pulmonary embolism, anastomotic leak, bleeding, bowel injury, GERD, cardiac, renal or pulmonary complications. The patient understood all the risks and was in agreement with the surgical plan. ? Hospital Course: ? The patient underwent an uneventful laparoscopic sleeve gastrectomy with gastropexy on the day of admission. Postoperatively, the patient was transferred to the surgical floor. The patient received IV Acetaminophen and IV dilaudid for pain control. Patient was started on bariatric phase 1 diet POD #0. On postoperative day one, the patient was feeling well without nausea, vomiting, fevers, or tachycardia. The patient had some mild incisional pain and the a bdomen was soft. ? On the morning of postoperative day one, the patient was continued on 1 ounce of water or ice every half hour. During the day, the patient did fairly well, having some incisional pain, but able to ambulate adequately and to tolerate liquids well. ? Since the patient is doing well, we decided that the patient was ready to be discharged. The patient was given instructions to follow-up with me next week and to call my office for any fever over 101, persistent abdominal pain, nausea, vomiting, GERD, symptoms of DVT such as calf tenderness, or leg swelling, or pulmonary embolism such as chest pain or shortness of breath. The patient was also instructed to drink 40-60 ounces of liquids per day using the 1-ounce cups. The patient had been given prescriptions for Tylenol for pain, Zofran prn for nausea, and pantoprazole and carafate previously. The patient was encouraged to ambulate and use the incentive spirometer. The patient was allowed to shower, but no baths, and encouraged to stay active at home. All of these instructions were given to the patient personally. All questions were answered and the patient understood all instructions, the instructions were also given to the patient in print. Time Attestation Total time managing care of this patient today: 25 mintues. Discharge Coordination Time (in mins): 25 Quality: Safe Use of Opioids Does Pt have an Active Cancer Diagnosis on the Problem List?: No Quality: Stroke Does the patient have a stroke diagnosis?: No Physical Exam Vital Signs: Vital Signs: Last Vital Signs Temp 97.0 F 02/02/24 06:34 Pulse 77 02/02/24 06:34 Resp 16 02/02/24 06:34 BP 119/76 02/02/24 06:34 Pulse Ox 98 02/02/24 06:34 O2 Del Method Room Air 02/02/24 06:34 BMI result Body Mass Index 37.7 DS: Data Data Completed and Pending Pending studies at discharge: Pending at discharge 02/02/24 09:49 Surgical [PTH] Routine Labs on day of discharge: Laboratory Results - last 24 hr 01/26/24 02/02/24 02/02/24 09:39 06:15 07:05 POC Glucose 81 Vitamin A 33 L Urine Test NEGATIVE Discharge Plan Discharge Anticipated Discharge Date/Time: 02/03/24 10:00 Patient Disposition: Home, Self-Care Discharge Diagnosis: s/p laparoscopic sleeve gastrectomy Referrals: Maye Wesley, NATANAEL [Primary Care Provider] - 1 Week Discharge Medications: Continued trazodone 50 mg tablet See Rx Instructions .ROUTE .COMPLEX Qty: 180 0RF Dose Instruction: TAKE 1 TABLET BY MOUTH TWICE A DAY NEEDED Rx Instructions: TAKE 1 TABLET BY MOUTH TWICE A DAY NEEDED olanzapine 10 mg tablet 10 mg PO QPM Qty: 90 1RF atorvastatin 20 mg tablet 20 mg PO BEDTIME 30 Days Qty: 30 3RF Mirena 20 mcg/24 hours (8 yrs) 52 mg intrauterine device 1 device intrauterine ONCE pantoprazole 40 mg tablet,delayed release (DR/EC) 40 mg PO DAILY Qty: 120 0RF Discontinued vitamin A palmitate 3,000 mcg (10,000 unit) capsule 10,000 unit PO DAILY 90 Days Qty: 90 0RF thiamine HCl (vitamin B1) 100 mg tablet 100 mg PO DAILY 90 Days Qty: 90 0RF cholecalciferol (vitamin D3) 125 mcg (5,000 unit) capsule 125 mcg PO DAILY Qty: 90 0RF Discharge Orders: Discharge Order (Routine); Ordered 02/03/24 Ordered By: Brayan Patiño Activity on Discharge: No heavy lifting Stand Alone Forms: Patient Portal Discharge page Print Language: Zimbabwean Care Plan Goals: weight loss Health Concerns: obesity Plan of Treatment: No tub baths, sex or returning to work until discussed at first post op appointment. No exercise, alcohol, tobacco or illegal drug use. Continue to use incentive spirometer hourly while awake. Walk in home for 5- 10 minutes every 2 hours during the first week. Follow all instructions in the bariatric handbook and call with any questi ons.Discharge Instructions 1. Please call your doctor or come back to the emergency room should any new symptoms arise. 2. You will receive a courtesy call from [facility] 24-[address] discharge. 3. Activity: abstain from alcohol, practice limited stair climbing, no bending, no driving, no exercise, no illicit substances, no lifting, no sex, no tub bath, no work. 4. Diet: continue as discussed with Dr. Patiño. 5. Dressing Change/Wound Care: Your incision is covered by clear bandages and guaze underneath. If the area is tender, you may apply an ice pack for short intervals (no more than 20 minutes on, followed by at least 20 minutes off). Do not apply heat. Do not use creams, lotions, or topical antibiotics unless instructed to do so by your surgeon. These can cause infection or allergic reaction. 6. Call your doctor if: - Your temperature exceeds 101.5 F - You experience excessive pain or swelling - You have an unexpected reaction to medication - You have excessive bleeding - You experience continued vomiting/nausea - Your incision begins to separate - Your incision shows signs of infection such as increased redness, swelling, excessive pain, heat, or drainage (light blood or clear fluid is normal) 7. General instructions: No lifting greater than 5 lbs for 1 week and not more than 20lbs the next 3?weeks. No driving until seen at the office in 5-7 days after surgery. If you do not move your bowels in the next 2 days, please tell?Dr. Patiño. Please walk around your home every hour or two to prevent blood clots from forming in your legs. You do not need to wake from sleeping to walk. Please sleep in a bed or couch to prevent kinking at the hips and knees. Please take your incentive spirometer (your lung engineering manager electronics) home with you and use it for the next few days to prevent pneumonia. You may shower, no hot tubs, baths or swimming pools.?Please follow the post op diet instructions you are?given by Dr Patiño? and text me daily at 5-6pm for an update.?If you have any issues or concerns or questions please communicate this to him via text.? The Celebrate shakes have all of the bariatric vitamins you need if you consume these shakes. If you are drinking other protein shakes, you will need to purchase the Celebrate multivitamins and calcium that are available in the hospital gift shop on the first floor of the [facility].??Do not take anything without first discussing with Dr Patiño. Please make sure you are consuming at least 40 ounces of fluids per day starting the?day AFTER your discharge from the hospital. Always drink 1-2 ml per minute using the 5ml?syringe. If you drink faster you may experience?bloating,?gas pain, burping, nausea or heartburn. In that case please slow down your pace and use the syringe to?understand better the?proper?pace and volume of drinking. Do not hesitate to contact the office with any questions at . The patient's medical history has been reviewed and they are considered low risk for post op DVT and therefore DVT prophylaxis is not considered necessary. Travel after surgery was reviewed. The patient has not disclosed any travel plans during the first 30 days after surgery and they have been advised that within the first 30 days after surgery any bus, plane, train or car travel over 2 hours in duration is contraindicated due to the possibility of developing blood clots from immobility. Any travel, needs to include periods of ambulation of 10 minutes in duration every 2 hours.? The patient was instructed to discuss any plans for travel during this period with their bariatric surgeon. Assessment: s/p laparoscopic sleeve gastrectomy Discharge Date/Time: 02/03/24 09:14
[2024-02-02] MEDS: Lactated Ringers 1,000 ML 100 ML IVCONT ×2 (11:55→20:38)
[2024-02-02 12:19] LABS: Hematocrit 38.8 % (37.0-47.0); Hemoglobin 13.3 g/dl (12.0-16.0)
[2024-02-02 12:25] LABS: Anion Gap 17 (12-20); Blood Urea Nitrogen 5 mg/dL (9-16); Calcium 9.1 mg/dL (8.4-10.2); Carbon Dioxide 21 mmol/L (22-29); Chloride 103 mmol/L (96-108); Creatinine Clr Calc Pharmacy 106.7; Estimated Glomerular Filt Rate > 60; Glucose Random 191 mg/dL (60-115); Potassium 3.8 mmol/L (3.3-5.1); Sodium 137 mmol/L (135-145)
[2024-02-02] MEDS: ceFAZolin Sodium/Dextrose,Iso 2 GM/50 ML PIGGYBACK IV (13:42)
[2024-02-02] MEDS: Acetaminophen 1,000 MG/100 ML PIGGYBACK 16.7 MG IV ×2 (14:30→20:37)
[2024-02-02] MEDS: OLANZapine 10 MG TABLET PO (20:24)
[2024-02-02] MEDS: Famotidine/PF 20 MG/2 ML VIAL IVPUSH (20:27)
[2024-02-03] MEDS: Acetaminophen 1,000 MG/100 ML PIGGYBACK 16.7 MG IV (02:43)
[2024-02-03 04:00] VITALS: BP 123/61; PULSE 72; RESP 18; TEMP 36.4; O2SAT 97
[2024-02-03] MEDS: Lactated Ringers 1,000 ML 100 ML IVCONT (05:47)
[2024-02-03 06:48] LABS: MANUAL DIFF FLAG NO
[2024-02-03 06:50] LABS: Basophils Percent Auto 0.1 % (0-2); Hematocrit 37.5 % (37.0-47.0); Hemoglobin 13.1 g/dl (12.0-16.0); Imm Gran Abs Auto 0.07 X10*3/uL (0.00-0.03); Imm Gran Pct Auto 0.5 % (0.0-0.4); Lymphocytes Percent Auto 6.9 % (20-40); Mean Corpuscular HGB Conc 34.9 g/dl (31.0-35.0); Mean Corpuscular Hemoglobin 31.5 pg (27.0-33.0); Mean Corpuscular Volume 90.1 fL (80.0-98.0); Mean Platelet Volume 9.5 fL (9.4-12.3); Monocytes Absolute Auto 0.6 X10*3/uL (0.1-1.2); Monocytes Percent Auto 3.8 % (2-11); Neutrophils Absolute Auto 13.3 x10*3/uL (2.0-8.3); Neutrophils Percent Auto 88.7 % (45-73); Platelet Count 271 X10*3/uL (160-400); Red Blood Count 4.16 X10*6/uL (4.20-5.50); Red Cell Distribution Width 12.1 % (11.0-16.0)
[2024-02-03 07:06] LABS: Anion Gap 17 (12-20); Blood Urea Nitrogen 3 mg/dL (9-16); Calcium 9.7 mg/dL (8.4-10.2); Carbon Dioxide 18 mmol/L (22-29); Chloride 107 mmol/L (96-108); Creatinine Clr Calc Pharmacy 114.8; Estimated Glomerular Filt Rate > 60; Glucose Random 119 mg/dL (60-115); Sodium 138 mmol/L (135-145)
[2024-02-03 07:14] VITALS: BP 126/66; PULSE 83; RESP 17; TEMP 36.8; O2SAT 98
[2024-02-03 07:18] VITALS: O2SAT 97
--- NOTE | 2024-02-03 08:30 | HO.POSTANES ---
Post Anesthesia Evaluation Post Anesthesia Evaluation Date of Service: 02/03/24 Vital Signs: Vital Signs Temp Pulse Resp BP Pulse Ox O2 Del Method 02/03/24 07:18 97 Room Air 02/03/24 07:14 98.3 F 83 17 126/66 98 Room Air 02/03/24 04:00 97.6 F 72 18 123/61 97 Room Air 02/02/24 23:34 98.2 F 72 18 130/66 98 Room Air Anesthesia: General LMA Mental Status: Awake Pain Control: Satisfactory Nausea/Vomiting: None Hydration: Adequate Anesthesia-Related Issues: No Anes. Related Issues
[2024-02-03] MEDS: Famotidine/PF 20 MG/2 ML VIAL IVPUSH (08:33)
[2024-02-04 13:48] LABS: Vitamin B1 13 nmol/L (8-30)
--- OUTSIDE RECORDS SUMMARY | 2024-02-04 23:33 | XMS_ITS | Continuity of Care Document ---
[facility] Address [address] [place] [id number]- Care Team Providers Care Nnp Name Role Phone Conchita Malagon MD Primary Care Physician ([facility])[phone] Encounter [facility] NBR [id number] Date(s): 02/18/22 - 03/26/22 [email or web address] [address] [place] [id number] Attending Physician: Conchita Malagon MD Allergies, Adverse Reactions, Alerts No Known Allergies Immunizations Given and Recorded Vaccine Date Status Refusal Reason influenza virus vaccine, inactivated 1 03/08/19 Gi adrian tetanus/diphtheria/pertussis, acel(Tdap) 2 12/04/18 Given Measles/Mumps/Rubella Virus Vaccine 02/17/10 Recor ded diphtheria/tetanus/pertussis, acel(DTaP) 02/17/10 Recorded 1Result Comment: [facility]# [id number] 2Result Comment: [facility]# [id number] Medications buPROPion 100 mg/12 hours (SR) oral [...] Name: Vesna GORE, Conchita Shelton Address: Address: [address] [place] [address] [place], [place] [address]
== END 2024-02-03 09:14 | disposition home or self-care (01) | DRG 403 ==
LOC: HO.SSSA 06:08 → HO.S3 10:29
PROVIDERS: Anesthesiology; Physician Assistant Surgical; Admitting Provider Surgery; PCP Nurse Practitioner Family; Visit Provider Surgery
PROC: 0DB64Z3 Excision of Stomach, Percutaneous Endoscopic Approach, Vertical (ICD-10-PCS; CPT 43845; principal; 2024-02-02 07:30)
DX: E66.01 Morbid (severe) obesity due to excess calories (principal); K76.0 Fatty (change of) liver, not elsewhere classified; Q43.3 Congenital malformations of intestinal fixation; E11.9 Type 2 diabetes mellitus without complications; F41.9 Anxiety disorder, unspecified; K21.9 Gastro-esophageal reflux disease without esophagitis; E78.5 Hyperlipidemia, unspecified; Z87.891 Personal history of nicotine dependence; Z68.36 Body mass index [BMI] 36.0-36.9, adult; Z79.899 Other long term (current) drug therapy
CPT/HCPCS: 36415; 80048; 80053; 80061; 81025; 82306; 82607; 82728; 82947; 83036; 83540; 84425; 84443; 84590; 84630; 85014; 85018; 85025; 85610; 85730; 86140; 86850; 86900; 86901; 88304; 88305; 88307; 88342; A4649; C9088; C9145; J0131; J0690; J1100; J1170; J2250; J2405; J2704; J2795; J3010; J7120

== ENCOUNTER 2024-02-09 10:16 | Outpatient (AMB) | payer OTHER, SELFPAY ==
--- NOTE | 2024-02-09 10:20 | A.OFFVIS_ITS ---
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 Presents for 7 day post op visit. Weight today is 211.8 pounds, with a BMI of 35.2. There has been a 45.6 pound weight loss,(initial weight 257.4 pounds) since starting the program on 10/17/2023 reflecting a 17.7 % total body weight loss and a weight loss of 19.6 pounds since surgery (operative weight 231.4 pounds) reflecting a 8.4 % TBWL since surgery. No complaints of nausea, emesis, abdominal pain or reflux. Positive bowel movement, no complaints of pain Present meal plan includes: Three celebrate 4 in 1 shakes with 1 scoop each, approximately 50 oz of fluids. [facility] Medical History (Updated 02/03/24 @ 00:02 by Background Daemon) Pre-op evaluation H. pylori infection Type 2 diabetes mellitus Elevated fasting glucose Smoking trying to quit Laboratory tests ordered as part of a complete physical exam (CPE) Morbid obesity Elevated blood pressure reading Normal physical exam Bipolar disorder Elevated cholesterol Diabetes HPV (human papilloma virus) infection Depression Anxiety Surgical History (Updated 02/03/24 @ 00:02 by Background Daemon) History of esophagogastroduodenoscopy (EGD) Family History Other Mental health disorder Substance abuse Social History (Updated 01/24/24 @ 12:23 by Yamielth Uribe RN) Household Members: Children Household Members Other:: minor children Housing: Apartment Are you a primary wound care specialist to a significant other at home: Yes Do you presently have visiting nurse or other home services: No 75 years or older and lives alone: No Alcohol intake: current Alcohol intake frequency: holidays/special occasions only Patient Tobacco Use Status: Former Tobacco user Tobacco use type: Cigarette Cigarette Packs Per Day: 0.25 Cigarettes Per Day: 5.0 Years Smoked: 20 e-Cigarette/Vaping Use: Former Use Second Hand Smoke Exposure: Yes Substance Use Type: Former Substance User and Marijuana service: No Current occupational status: employed 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 Original weight on 10/17/2023 was 257.4 pounds and op weight was 231.4 pounds. Be sure to text Dr Patiño exactly 1 week after surgery your weight from your home scale so he can adjust your meal plan. Continue meal plan until f/u w Ирина in 2 weeks May shower, no submersion in bath for another week Continue abdominal binder with activity and exercise for the next 2 weeks. Exercise prior to surgery was walking outside and may resume No abdominal exercises for 6 weeks post operatively Will be emailed link to post op video for review Reminded of the pace of drinking, 2 mL per minute, 1 oz/15 min.
[2024-02-09 10:42] VITALS: BP 138/87; PULSE 82; TEMP 36; O2SAT 97; BMI 35.2
== END 2024-02-09 12:56 | disposition home or self-care (01) ==
PROVIDERS: PCP Nurse Practitioner Family; Visit Provider Physician Assistant Surgical
DX: Z98.84 Bariatric surgery status (principal)
CPT/HCPCS: 99024

== ENCOUNTER → 2024-02-09 10:16 | Outpatient (BNVA) | payer OTHER, SELFPAY | PROVIDERS: PCP Nurse Practitioner Family; Visit Provider Physician Assistant Surgical | DX: E66.01 Morbid (severe) obesity due to excess calories (principal); Z68.35 Body mass index [BMI] 35.0-35.9, adult; Z90.3 Acquired absence of stomach [part of] | CPT/HCPCS: 99212 ==

== ENCOUNTER 2024-02-27 11:16 | Outpatient (AMB) | payer OTHER, SELFPAY ==
--- NOTE | 2024-02-27 11:19 | A.OFFVIS_ITS ---
VS Expanded 02/27/24 11:25 BP 125/63 Blood Pressure Location Rt brachial Blood Pressure Position Sitting Pulse 91 Pulse Source Pulse Oximeter Temp 97.7 F Temperature Source Tympanic Pulse Oximetry 97 Oxygen Delivery Method Room Air Height 5 ft 5 in Weight 208 lb 6.4 oz BMI 34.7 Body Fat % 42.4 Body Fat Mass 88.4 Fat Free Mass 120.0 Visceral Fat Rating 9.0 Body Water % 41.2 Body Water Mass 85.8 Muscle Mass/Score 113.8 Basal Metabolic Rate/Score 1,681 Intake Visit Reasons: (OV) PO LSG 02/02/24 Allergies No Known Allergies Allergy (Verified 02/27/24 11:28) Medication List - Last Reconciled 02/27/24 by DERRICK Bae atorvastatin 20 mg PO BEDTIME 30 days bisacodyl (Dulcolax (bisacodyl)) 10 mg [place] DAILY PRN docusate sodium (Colace) 100 mg PO DAILY levonorgestrel (Mirena) 1 device intrauterine ONCE olanzapine 10 mg PO QPM pantoprazole 40 mg PO DAILY sennosides (senna) 17.2 mg (2 x 8.6 mg) PO BEDTIME sucralfate 10 mL PO BID trazodone TAKE 1 TABLET BY MOUTH TWICE A DAY NEEDED HPI Comments Details: This?is a?38?yo female who is s/p LSG 02/02/2024. Presents for 4 week post op visit. Weight at last visit on 02/09/2024 was 211.8 pounds with a BMI of 35.2, weight today is 208.4 pounds, representing a 3.4 pound weight loss with a BMI today of 34.7.? No complaints of nausea, emesis, abdominal pain or reflux. MoM, Colace, Senna, suppository tried for constipation. Only suppository is helpful. Having 4 days between bowel movements. Does not like the milk based shakes. Present meal plan includes: 8-10am Celebrate 1 scoop 11am-1pm 1 scoop 2-4pm Celebrate 2 scoops 5-8pm protein bar- but having difficulty taking in the protein bars due to sweetness, has tried several brands but does not like Exercise routine includes: goes on a walk or goes to gym, tracks calories- 2000 alfredo burned per week was told to increase calorie burn by 50 alfredo/day [facility] Medical History (Updated 02/20/24 @ 17:12 by Brayan Patiño MD) Pre-op evaluation H. pylori infection Type 2 diabetes mellitus Elevated fasting glucose Smoking trying to quit Laboratory tests ordered as part of a complete physical exam (CPE) Morbid obesity Elevated blood pressure reading Normal physical exam Bipolar disorder Elevated cholesterol Diabetes HPV (human papilloma virus) infection Depression Anxiety Surgical History (Updated 02/27/24 @ 11:28 by Shantell Orozco CMA) Hx of laparoscopic partial gastrectomy History of esophagogastroduodenoscopy (EGD) Family History Other Mental health disorder Substance abuse Social History Household Members: Children Household Members Other:: minor children Housing: Apartment Are you a primary customer care manager to a significant other at home: Yes Do you presently have visiting nurse or other home services: No 75 years or older and lives alone: No Alcohol intake: current Alcohol intake frequency: holidays/special occasions only Patient Tobacco Use Status: Former Tobacco user Tobacco use type: Cigarette Cigarette Packs Per Day: 0.25 Cigarettes Per Day: 5.0 Years Smoked: 20 e-Cigarette/Vaping Use: Former Use Second Hand Smoke Exposure: Yes Substance Use Type: Former Substance User and Marijuana service: No Current occupational 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: employed 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 Physical Exam Vital Signs: Last Vital Signs Temp 97.7 F 02/27/24 11:25 Pulse 91 02/27/24 11:25 BP 125/63 02/27/24 11:25 Pulse Ox 97 02/27/24 11:25 Oxygen Delivery Method Room Air 02/27/24 11:25 BMI result Body Mass Index 34.7 Assessment & Plan Assessment & Plan (1) S/P laparoscopic sleeve gastrectomy: Code(s): Z98.84 - Bariatric surgery status Category: Medical (2) Obesity (BMI 30-39.9): Code(s): E66.9 - Obesity, unspecified Category: Medical Plan Encouraged pt to text Dr Ceron regarding her dislike of current protein products and concern over cost. Wants to use Isopure, told her for now she could replace protein bar with 1 scoop Isopure in 8oz water and pt will check in on with weight measurements. Continue current bowel regimen, pt will let us know if she becomes uncomfortable due to lack of bowel movements. Reviewed heavy lifting restriction. Texted pt with my phone # and encouraged her to reach out between appts with any questions. RTC 1 month. I spent a total of 30 minutes reviewing/updating records, examining the patient and counseling the patient on weight management as detailed above.
[2024-02-27 11:25] VITALS: BP 125/63; PULSE 91; TEMP 36.5; O2SAT 97; BMI 34.7
== END 2024-02-27 12:14 | disposition home or self-care (01) ==
PROVIDERS: PCP Nurse Practitioner Family; Visit Provider Physician Assistant Surgical
DX: E66.9 Obesity, unspecified (principal); Z68.34 Body mass index [BMI] 34.0-34.9, adult; Z90.3 Acquired absence of stomach [part of]; Z98.84 Bariatric surgery status
CPT/HCPCS: 99024

== ENCOUNTER → 2024-02-27 11:16 | Outpatient (BNVA) | payer OTHER, SELFPAY | PROVIDERS: PCP Nurse Practitioner Family; Visit Provider Physician Assistant Surgical | DX: F31.63 Bipolar disorder, current episode mixed, severe, without psychotic features (principal); F41.9 Anxiety disorder, unspecified; E11.9 Type 2 diabetes mellitus without complications; E66.9 Obesity, unspecified; Z71.89 Other specified counseling; Z71.3 Dietary counseling and surveillance; Z68.34 Body mass index [BMI] 34.0-34.9, adult; Z98.84 Bariatric surgery status | CPT/HCPCS: 96127; 99212 ==

== ENCOUNTER 2024-02-27 15:31 | Outpatient (AMB) | payer OTHER, SELFPAY ==
--- NOTE | 2024-02-27 15:50 | A.OFFPC_ITS ---
Vital Signs 02/27/24 16:02 Height 5 ft 5 in Weight 210 lb BMI 34.9 BP 107/59 L Blood Pressure Location Rt brachial Position Sitting Respiration 16 Pulse 74 Pulse Source Pulse Oximeter Temp 98.3 F Temp Source Oral Pulse Oximetry (%) 100 Oxygen Delivery Method Room Air Intake Visit Reasons: 3 mos DM2, BD, anxiety Intake Note: patient here for 3 month follow up on DM2 BD, and Anxiety. 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: No Is last menstrual period known: Yes Last menstrual period: 02/02/24 Post menopausal: No Patient : No Allergies No Known Allergies Allergy (Verified 02/27/24 16:13) Medication List - Last Reconciled 02/27/24 by Maye Wesley CNP atorvastatin 20 mg PO BEDTIME 30 days bisacodyl (Dulcolax (bisacodyl)) 10 mg [place] DAILY PRN docusate sodium (Colace) 100 mg PO DAILY levonorgestrel (Mirena) 1 device intrauterine ONCE olanzapine 10 mg PO QPM pantoprazole 40 mg PO DAILY sennosides (senna) 17.2 mg (2 x 8.6 mg) PO BEDTIME sucralfate 10 mL PO BID trazodone TAKE 1 TABLET BY MOUTH TWICE A DAY NEEDED Tobacco use date assessed: 02/27/24 Dental Screening Dental Screen Date: 02/27/24 Did you have a dental visit in the last 12 months?: Yes Did you have a dental problem in the last 6 months where you did not have access to dental care?: No Was dental information given to patient?: Patient has dentist HPI HPI Comments History of Present Illness Details 38-year-old female presents for diabetes , bipolar, and anxiety follow- up She admits to taking her medications as prescribed without adverse reactions She notes that she has been very anxious over the past 2 weeks due to family issues. She notes that she has a cat and a dog, although she is not allowed to have more than one pet. Her dog is for emotional support. She notes that her rental housing will process paperwork for her PCP to confirm dog as her emotional support. She has been having adequate night sleep. She has also been exercising daily. She has been drinking protein shakes since her gastric sleeve surgery, per gastric surgeon; she has not had solid foods She offers no complaints and denies acute symptoms at this time She is excited that she has not smoked cigarettes since November, She had gastric sleeve surgery on 02/02/2024. She notes she stopped taking Metformin last month per GI surgeon. She continues to work with [facility] weight management [facility] Medical History (Updated 02/27/24 @ 16:16 by Maye Wesley CNP) Type 2 diabetes mellitus Pre-op evaluation H. pylori infection Elevated fasting glucose Smoking trying to quit Laboratory tests ordered as part of a complete physical exam (CPE) Morbid obesity Elevated blood pressure reading Normal physical exam Bipolar disorder Elevated cholesterol Diabetes HPV (human papilloma virus) infection Depression Anxiety Surgical History (Updated 02/27/24 @ 11:28 by Shantell Orozco CMA) Hx of laparoscopic partial gastrectomy History of esophagogastroduodenoscopy (EGD) Family History Other Mental health disorder Substance abuse Social History Household Members: Children Household Members Other:: minor children Housing: Apartment Are you a primary daycare worker to a significant other at home: Yes Do you presently have visiting nurse or other home services: No 75 years or older and lives alone: No Alcohol intake: current Alcohol intake frequency: holidays/special occasions only Patient Tobacco Use Status: Former Tobacco user Tobacco use type: Cigarette Cigarette Packs Per Day: 0.25 Cigarettes Per Day: 5.0 Years Smoked: 20 e-Cigarette/Vaping Use: Former Use Second Hand Smoke Exposure: Yes Substance Use Type: Former Substance User and Marijuana service: No 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 1. Little interest or pleasure in doing things: more than half the days 2. Feeling down, depressed, or hopeless: several days 3. Trouble falling or staying asleep, or sleeping too much: more than half the days 4. Feeling tired or having little energy: more than half the days 5. Poor appetite or overeating: not at all 6. Feeling bad about yourself - or that you are a failure or have let yourself or your family down: more than half the days 7. Trouble concentrating on things, such as reading the newspaper or watching television: several days 8. Moving or speaking so slowly that other people could have noticed. Or the opposite - being so fidgety or restless that you have been moving around a lot more than usual: not at all 9. Thoughts that you would be better off or of hurting yourself in some way: not at all Total score: 10 Depression Screening Interpretation: Positive Depression Screening Follow-up: Existing condition and In treatment Depression Screening Done: Yes 14664 - PHQ-9 Billing: Yes Source: Developed by Drs. Reinaldo Madrigal, Liset Mesa, Carlitos Yu and colleagues, with an educational wilfredo from [employer]. Thrive Questionnaire Date Thrive assessed: 08/08/23 AUDIT C Alcohol Use Questionnaire (AUDIT-C) 3. How often do you have six or more drinks on one occasion?: Never Total Score: 0 TY-7 AMB Questionnaire TY-7 Date TY - 7 assessed: 02/27/24 Feeling nervous, anxious, or on edge: 3 = Nearly every day Not being able to stop or control worryin = More than half the days Worrying too much about different things: 3 = Nearly every day Trouble relaxin = More than half the days Being so restless that it is hard to sit still: 0 = Not at all Becoming easily annoyed or irritable: 2 = More than half the days Feeling afraid as if something awful might happen: 0 = Not at all Total TY-7 score (0-4 normal; 5-9 mild; 10-14 moderate; 15-21 severe): 12 Source: Developed by Drs. Reinaldo Madrigal, Liset Mesa, Carlitos Yu and colleagues, with an educational wilfredo from [employer]. TY-7 Assessment Billing TY-7 Assessment Tool: TY-7 Assessment 95339 Review of Systems Const Details: Const Denies chills, Denies fatigue, Denies fever(s), Denies headache(s) and Denies weakness ENT Denies dizziness and Denies headache(s) Card Denies chest pain, Denies lightheadedness, Denies dyspnea and Denies other (Pal pitations) Resp Denies cough, Denies dyspnea, Denies wheezing and Denies other ( shortness of breath) GI Denies abdominal pain, Denies melena, Denies hematochezia, Denies change in bowel habits, Denies dyspepsia and Denies nausea Denies hematuria and Denies dysuria Musc Denies abnormal gait, Denies myalgias, Denies arthralgias, Denies numbness and Denies tingling Skin/Breast Denies rash, Denies unusual bruising and Denies wounds Neuro Denies abnormal gait, Denies dizziness, Denies headache(s), Denies memory loss, Denies numbness, Denies Sensory deficit (Neuro), Denies tingling and Denies weakness Psych Denies anxiety, Denies depression, Denies memory loss Endo Denies cold intolerance, Denies fatigue, Denies heat intolerance, Denies polydipsia and Denies polyuria Aller/Immun Denies wheezing Physical exam (Primary Care) Vital Signs: Last Vital Signs Temp 98.3 F 02/27/24 16:02 Pulse 74 02/27/24 16:02 Resp 16 02/27/24 16:02 BP 107/59 L 02/27/24 16:02 Pulse Ox 100 02/27/24 16:02 Oxygen Delivery Method Room Air 02/27/24 16:02 BMI result Body Mass Index 34.9 Tobacco/Smoking Status: Tobacco use Status Tobacco use date assessed 02/27/24 02/27/24 16:05 Patient Tobacco Use Status Former Tobacco user 02/27/24 15:52 Tobacco use type Cigarette 02/27/24 15:52 e-Cigarette/Vaping Use Former Use 02/27/24 15:52 PHQ-9: PHQ-9 Score PHQ-9: Total score 10 02/27/24 16:05 Depression Screening Interpretation: Positive Depression Screening Follow-up: Existing condition and In treatment Thrive Assessment: Date of Thrive Assessment Date Thrive assessed 08/08/23 02/27/24 15:52 Const Other: General: no acute distress and well developed Nutritional Appearance: well nourished Orientation/consciousness: patient oriented x3 HENMT Head: Yes normocephalic and Yes atraumatic Eyes General: appearance normal, both eyes and all related structures Pupils: Equal, round and reactive pupils present EOM: EOMs intact bilaterally Resp Effort & Inspection: normal respiratory effort Auscultation: clear to auscultation bilaterally Cardio Rate: regular rate Rhythm: regular rhythm Heart sounds: S1 normal heart sound present, S2 normal heart sound present, no gallops, no murmurs and no rubs GI Palpation (GI): No Abdominal aortic bruit present, Soft to palpation, nontender, No hepatosplenomegaly present and No Rebound tenderness present Auscultation: normal bowel sounds General: Yes no CVA tenderness Back/Spine/Pelvis Back: no CVA tenderness Cervical Spine: cervical ROM normal and No Cervical spine tenderness Thoracic/Lumbar Spine: thoraco-lumbar ROM normal, No pain with thoraco-lumbar ROM, No thoracic spinal tenderness and No lumbar spinal tenderness Extrem General: Yes normal to inspection, No edema and No calf tenderness Skin General: warm and dry. Normal skin color. Normal skin turgor Neuro General: patient oriented x3, gait normal and no focal neuro deficit Cranial nerves: Yes Equal, round and reactive pupils present Cognition (Neuro): normal cognition Gait exam (Neuro): Normal gait present Sensory Exam: No Sensory deficit (Neuro) Psych Appearance: grossly normal Affect: normal affect Attitude: cooperative Thought process: Normal thought process present Assessment and Plan Assessment & Plan (1) Type 2 diabetes mellitus: Code(s): E11.9 - Type 2 diabetes mellitus without complications Plan: A1c on 01/26/2024 was 5.3%, within goal of less than 7.0%. Previous A1c was 5.7% She had gastric sleeve surgery last month and was told to stop taking metformin ADA diet and routine exercise encouraged Follow-up in 3 months or sooner with symptoms or concerns Verbalized understanding and agreed with the plan (2) Bipolar affective, mixed, severe: Code(s): F31.63 - Bipolar disorder, current episode mixed, severe, without psychotic features Plan: She reports increased anxiety for the past 2 weeks due to family issues and being told her apartment management that she is not allowed to have 2 pets. She has a cat and a dog which is a support animal. Her housing management will complete paperwork for her PCP to approve her dog for support. Encouraged to continue current treatment regimen Healthy diet and routine exercise encouraged Follow-up in 3 months or sooner with worsening or new symptoms Verbalized understanding and agreed with the treatment plan (3) Anxiety: Code(s): F41.9 - Anxiety disorder, unspecified Plan: Plan as above Medications: New trazodone 50 mg PO BEDTIME 90 days PRN 90 tabs 1RF insomnia Discontinued trazodone Discontinued Reason: Doctor's Order TAKE 1 TABLET BY MOUTH TWICE A DAY NEEDED 180 tabs 0RF F31.63 - Bipolar disorder, current episode mixed, severe, without psychotic features Coding Level of Care Code Est Pt Level 4 (38974) Diagnoses Type 2 diabetes mellitus E11.9 Bipolar affective, mixed, severe F31.63 Anxiety F41.9 Additional Codes TY-7 Assessment Billing - TY-7 Assessment Tool: TY-7 Assessment [id number] ([id number])
[2024-02-27 16:02] VITALS: BP 107/59; PULSE 74; RESP 16; TEMP 36.8; O2SAT 100; BMI 34.9
== END 2024-02-27 16:31 | disposition home or self-care (01) ==
PROVIDERS: PCP Nurse Practitioner Family; Visit Provider Nurse Practitioner Family
DX: E11.9 Type 2 diabetes mellitus without complications (principal); F31.63 Bipolar disorder, current episode mixed, severe, without psychotic features; F41.9 Anxiety disorder, unspecified

== ENCOUNTER 2024-04-04 13:30 | Outpatient (AMB) | payer OTHER, SELFPAY ==
--- NOTE | 2024-04-04 13:38 | A.OFFVIS_ITS ---
Intake Visit Reasons: VIDEO PO LSG 02/02/24 Allergies No Known Allergies Allergy (Verified 02/27/24 16:13) HPI Comments Details: This?is a?38?yo female who is s/p LSG with[out] hiatal hernia repair on?[]. Presents for [] post op visit. Weight at last visit on [] was [] pounds with a BMI of [], weight today is [] pounds, representing a [] pound weight loss with a BMI today of [].? No complaints of nausea, emesis, abdominal pain or reflux, or constipation. Present meal plan includes: All meals last 20 - 30 minutes and does not drink and eat at the same time. Exercise routine includes: [facility] Medical History (Updated 02/27/24 @ 16:16 by Maye Wesley CNP) Type 2 diabetes mellitus Pre-op evaluation H. pylori infection Elevated fasting glucose Smoking trying to quit Laboratory tests ordered as part of a complete physical exam (CPE) Morbid obesity Elevated blood pressure reading Normal physical exam Bipolar disorder Elevated cholesterol Diabetes HPV (human papilloma virus) infection Depression Anxiety Surgical History (Updated 02/27/24 @ 11:28 by Shantell Orozco AIRCRAFT MAINTENANCE INSTRUCTOR) Hx of laparoscopic partial gastrectomy History of esophagogastroduodenoscopy (EGD) Family History Other Mental health disorder Substance abuse Social History Household Members: Children Household Members Other:: minor children Housing: Apartment Are you a primary health care social worker to a significant other at home: Yes Do you presently have visiting nurse or other home services: No 75 years or older and lives alone: No Alcohol intake: current Alcohol intake frequency: holidays/special occasions only Patient Tobacco Use Status: Former Tobacco user Tobacco use type: Cigarette Cigarette Packs Per Day: 0.25 Cigarettes Per Day: 5.0 Years Smoked: 20 e-Cigarette/Vaping Use: Former Use Second Hand Smoke Exposure: Yes Substance Use Type: Former Substance User and Marijuana service: No Current occupational status: employed 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
--- NOTE | 2024-04-04 14:11 | A.OFFVIS_ITS ---
VS Expanded 04/04/24 14:14 Height 5 ft 5 in Weight 196 lb 13 oz BMI 32.7 Intake Visit Reasons: VIDEO PO LSG 02/02/24 Allergies No Known Allergies Allergy (Verified 02/27/24 16:13) Medication List - Last Reconciled 04/04/24 by DERRICK Bae atorvastatin 20 mg PO BEDTIME 30 days bisacodyl (Dulcolax (bisacodyl)) 10 mg OK DAILY PRN docusate sodium (Colace) 100 mg PO DAILY levonorgestrel (Mirena) 1 device intrauterine ONCE olanzapine 10 mg PO QPM pantoprazole 40 mg PO DAILY sennosides (senna) 17.2 mg (2 x 8.6 mg) PO BEDTIME sucralfate 10 mL PO BID trazodone 50 mg PO BEDTIME PRN 90 days HPI Comments Details: This?is a?38?yo female who is s/p LSG 02/02/2024. Presents for 2 month post op visit. Weight at last visit on 02/27/2024 was 208.4 pounds with a BMI of 34.7, weight today is 196.8 pounds, representing a pound weight loss with a BMI today of 32.8.? No complaints of nausea, emesis, abdominal pain or reflux. Taking meds to help with constipation, has a BM every 3rd day. Occasional episodes of lightheadedness, positional in nature. Present meal plan includes: 3 Isopure drinks- 1/2 scoop in 2, full scoop in 1 1 protein bar no solids yet thinks she could increase hydration Exercise routine includes: goes on a walk or goes to gym, tracks calories- 350 alfredo/day [facility] Medical History (Updated 02/27/24 @ 16:16 by Maye Wesley CNP) Type 2 diabetes mellitus Pre-op evaluation H. pylori infection Elevated fasting glucose Smoking trying to quit Laboratory tests ordered as part of a complete physical exam (CPE) Morbid obesity Elevated blood pressure reading Normal physical exam Bipolar disorder Elevated cholesterol Diabetes HPV (human papilloma virus) infection Depression Anxiety Surgical History (Updated 02/27/24 @ 11:28 by Shantell Orozco CMA) Hx of laparoscopic partial gastrectomy History of esophagogastroduodenoscopy (EGD) Family History Other Mental health disorder Substance abuse Social History Household Members: Children Household Members Other:: minor children Housing: Apartment Are you a primary caregiver assisted living to a significant other at home: Yes Do you presently have visiting nurse or other home services: No 75 years or older and lives alone: No Alcohol intake: current Alcohol intake frequency: holidays/special occasions only Patient Tobacco Use Status: Former Tobacco user Tobacco use type: Cigarette Cigarette Packs Per Day: 0.25 Cigarettes Per Day: 5.0 Years Smoked: 20 e-Cigarette/Vaping Use: Former Use Second Hand Smoke Exposure: Yes Substance Use Type: Former Substance User and Marijuana service: No Current occupational status: employed 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 Telehealth Telehealth Telehealth Platform: Telephone Location of provider rendering services: other Location of patient: address on file Patient Identification confirmed using: Name, : Yes Telehealth method: voice only Patient verbally consented to treatment: Yes Patient verbally consented to billing insurance company: Yes Patient informed of any privacy concerns related to visit: Yes Minutes spent on Phone/Video with Pt.: 15 Assessment & Plan Assessment & Plan (1) S/P laparoscopic sleeve gastrectomy: Code(s): Z98.84 - Bariatric surgery status Category: Surgical (2) Obesity (BMI 30-39.9): Code(s): E66.9 - Obesity, unspecified Category: Medical Plan Pt to continue meal plan per Dr. Melton Has increased exercise to 350cal/day. No activity restrictions now that she is more than 6w postop. Continue PPI/carafate to complete 90 day course. Will let us know if dizziness increases or she experiences additional symptoms like chest pain/syncope. RTC 1 month. I spent a total of 30 minutes reviewing/updating records, examining the patient and counseling the patient on weight management as detailed above.
[2024-04-04 14:14] VITALS: BMI 32.7
== END 2024-04-04 14:00 | disposition home or self-care (01) ==
LOC: HO.HBS 15:18
PROVIDERS: PCP Nurse Practitioner Family; Visit Provider Physician Assistant Surgical
DX: E66.9 Obesity, unspecified (principal); Z68.32 Body mass index [BMI] 32.0-32.9, adult; Z98.84 Bariatric surgery status; Z90.3 Acquired absence of stomach [part of]
CPT/HCPCS: 99024

== ENCOUNTER → 2024-04-04 13:30 | Outpatient (BNVA) | payer OTHER, SELFPAY | PROVIDERS: PCP Nurse Practitioner Family; Visit Provider Physician Assistant Surgical | DX: Z98.84 Bariatric surgery status (principal); E66.9 Obesity, unspecified ==

== ENCOUNTER 2024-05-01 13:40 | Outpatient (AMB) | payer OTHER, SELFPAY ==
--- NOTE | 2024-05-01 13:33 | MHC.OFFVISWM ---
VS Expanded 05/01/24 13:37 Height 5 ft 5 in Weight 190 lb 2 oz BMI 31.6 Intake Visit Reasons: TELEPHONE PO LSG 02/02/24 Allergies No Known Allergies Allergy (Verified 02/27/24 16:13) Medication List - Last Reconciled 05/01/24 by DERRICK Bae atorvastatin 20 mg PO BEDTIME 30 days bisacodyl (Dulcolax (bisacodyl)) 10 mg PO BEDTIME docusate sodium (Colace) 100 mg PO DAILY levonorgestrel (Mirena) 1 device intrauterine ONCE olanzapine 10 mg PO QPM sennosides (senna) 17.2 mg (2 x 8.6 mg) PO BEDTIME trazodone 50 mg PO BEDTIME PRN 90 days HPI Comments Details: This?is a 39?yo female who is s/p LSG 02/02/2024. Presents for 3mo post op visit. Weight at last visit on 04/04/2024 was 196.8 pounds, weight today is 190.2 pounds, representing a 6.6 pound weight loss with a BMI today of 31.6.? No complaints of nausea, emesis, abdominal pain or reflux. Restarted drinking halfcaf coffee, did not ask prior. No further episodes of dizziness. Present meal plan includes: 3 Isopure drinks- 1/2 scoop in 2, full scoop in 1 1 protein bar no solids yet thinks she could increase hydration Exercise routine includes: goes on a walk or goes to gym, tracks calories- 350 alfredo/day last few weeks had some family issues, depression worsening- less motivated [facility] Medical History (Updated 02/27/24 @ 16:16 by Maye Wesley CNP) Type 2 diabetes mellitus Pre-op evaluation H. pylori infection Elevated fasting glucose Smoking trying to quit Laboratory tests ordered as part of a complete physical exam (CPE) Morbid obesity Elevated blood pressure reading Normal physical exam Bipolar disorder Elevated cholesterol Diabetes HPV (human papilloma virus) infection Depression Anxiety Surgical History (Updated 02/27/24 @ 11:28 by Shantell Orozco CMA) Hx of laparoscopic partial gastrectomy History of esophagogastroduodenoscopy (EGD) Family History Other Mental health disorder Substance abuse Social History Household Members: Children Household Members Other:: minor children Housing: Apartment Are you a primary client care representative to a significant other at home: Yes Do you presently have visiting nurse or other home services: No 75 years or older and lives alone: No Alcohol intake: current Alcohol intake frequency: holidays/special occasions only Patient Tobacco Use Status: Former Tobacco user Tobacco use type: Cigarette Cigarette Packs Per Day: 0.25 Cigarettes Per Day: 5.0 Years Smoked: 20 e-Cigarette/Vaping Use: Former Use Second Hand Smoke Exposure: Yes Substance Use Type: Former Substance User and Marijuana service: No Current occupational status: employed 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 Telehealth Telehealth Telehealth Platform: Telephone Location of provider rendering services: other Location of patient: address on file Patient Identification confirmed using: Name, : Yes Telehealth method: voice only Patient verbally consented to treatment: Yes Patient verbally consented to billing insurance company: Yes Patient informed of any privacy concerns related to visit: Yes Minutes spent on Phone/Video with Pt.: 16 Assessment & Plan Assessment & Plan (1) S/P laparoscopic sleeve gastrectomy: Code(s): Z98.84 - Bariatric surgery status Category: Surgical (2) Obesity (BMI 30-39.9): Code(s): E66.9 - Obesity, unspecified Category: Medical Plan Pt will continue meal plan per Dr. Melton Considering asking about starting solids. Knows her exercise has been less than advised. No reflux off PPI/carafate. RTC 6w. I spent a total of 30 minutes reviewing/updating records, examining the patient and counseling the patient on weight management as detailed above. Medications: Refilled sennosides (senna) 17.2 mg (2 x 8.6 mg) PO BEDTIME 90 tabs 0RF constipation
[2024-05-01 13:37] VITALS: BMI 31.6
== END 2024-05-01 13:43 | disposition home or self-care (01) ==
LOC: HO.HBS 13:40
PROVIDERS: PCP Nurse Practitioner Family; Visit Provider Physician Assistant Surgical
DX: E66.9 Obesity, unspecified (principal); Z68.31 Body mass index [BMI] 31.0-31.9, adult; Z98.84 Bariatric surgery status
CPT/HCPCS: 99024

== ENCOUNTER 2024-05-14 15:40 | Outpatient (AMB) | payer OTHER, SELFPAY ==
--- NOTE | 2024-05-14 15:42 | MHC.PC.OV ---
Vital Signs 05/14/24 15:48 Height 5 ft 5 in Weight 187 lb 8 oz BMI 31.2 BP 112/56 L Blood Pressure Location Rt brachial Position Sitting Respiration 16 Pulse 64 Pulse Source Pulse Oximeter Temp 97.0 F Temp Source Temporal Artery Scan Pulse Oximetry (%) 100 Oxygen Delivery Method Room Air Intake Visit Reasons: 3 mos, DM, bipolar, anxiety Intake Note: patient here for 3 month follow up on DM, bipolar and anxiety. Label Fuser Tender Required: No Is last menstrual period known: No (pt has an IUD) Post menopausal: No Patient : No Allergies No Known Allergies Allergy (Verified 05/14/24 16:14) Medication List - Last Reconciled 05/14/24 by Maye Welsey CNP atorvastatin 20 mg PO BEDTIME 30 days bisacodyl (Dulcolax (bisacodyl)) 10 mg PO BEDTIME levonorgestrel (Mirena) 1 device intrauterine ONCE olanzapine 10 mg PO QPM trazodone 50 mg PO BEDTIME PRN 90 days Tobacco use date assessed: 05/14/24 Dental Screening Dental Screen Date: 05/14/24 Did you have a dental visit in the last 12 months?: Yes Did you have a dental problem in the last 6 months where you did not have access to dental care?: No Was dental information given to patient?: Patient has dentist HPI HPI Comments History of Present Illness Details The patient is a 39-year-old female presenting with anxiety, bipolar disorder, and type 2 diabetes mellitus. The patient's anxiety and bipolar disorder have been previously diagnosed, with current management focused on controlling mood variability. The patient reports that her mood is stable, and anxiety is under control at the moment. For diabetes, the patient has a history of well-controlled type 2 diabetes mellitus with previous glycated hemoglobin (A1c) levels recorded at 5.3% in January, and 5.0% during this visit, both reflecting excellent glycemic control as the goal is less than 7.0%. The patient adheres to diabetic management with regular monitoring of blood glucose and routine lab tests. There is no indication of diabetes-related complications at this time. [facility] Medical History (Updated 02/27/24 @ 16:16 by Maye Wesley CNP) Type 2 diabetes mellitus Pre-op evaluation H. pylori infection Elevated fasting glucose Smoking trying to quit Laboratory tests ordered as part of a complete physical exam (CPE) Morbid obesity Elevated blood pressure reading Normal physical exam Bipolar disorder Elevated cholesterol Diabetes HPV (human papilloma virus) infection Depression Anxiety Surgical History (Updated 02/27/24 @ 11:28 by Shantell Orozco CMA) Hx of laparoscopic partial gastrectomy History of esophagogastroduodenoscopy (EGD) Family History Other Mental health disorder Substance abuse Social History Household Members: Children Household Members Other:: minor children Housing: Apartment Are you a primary eye care professional to a significant other at home: Yes Do you presently have visiting nurse or other home services: No 75 years or older and lives alone: No Alcohol intake: current Alcohol intake frequency: holidays/special occasions only Patient Tobacco Use Status: Former Tobacco user Tobacco use type: Cigarette Cigarette Packs Per Day: 0.25 Cigarettes Per Day: 5.0 Years Smoked: 20 e-Cigarette/Vaping Use: Former Use Second Hand Smoke Exposure: Yes Substance Use Type: Former Substance User and Marijuana service: No Current occupational status: employed Current occupation: [employer] Current occupational exposures/hazards: No Cognitive needs: No Hearing needs: No Vision needs: Yes Questionnaire PHQ-9 Over the last 2 weeks, how often have you been bothered by any of the following problems? 1. Little interest or pleasure in doing things: not at all 2. Feeling down, depressed, or hopeless: several days 3. Trouble falling or staying asleep, or sleeping too much: several days 4. Feeling tired or having little energy: not at all 5. Poor appetite or overeating: not at all 6. Feeling bad about yourself - or that you are a failure or have let yourself or your family down: not at all 7. Trouble concentrating on things, such as reading the newspaper or watching television: several days 8. Moving or speaking so slowly that other people could have noticed. Or the opposite - being so fidgety or restless that you have been moving around a lot more than usual: not at all 9. Thoughts that you would be better off or of hurting yourself in some way: not at all Total score: 3 Depression Screening Interpretation: Negative Depression Screening Done: Yes 80746 - PHQ-9 Billing: Yes Source: Developed by Drs. Reinaldo Madrigal, Liset Mesa, Carlitos Yu and colleagues, with an educational wilfredo from [employer]. Thrive Questionnaire Date Thrive assessed: 05/14/24 I am a: Patient What is your living situation today?: I have a steady place to live Within the past 12 months, did the food you bought not last and you didn't have the money to get more?: Never true Within the past 12 months, did you worry whether your food would run out before you got money to buy more?: Never true Do you have trouble paying for medicines?: No Do you have trouble getting transportation to medical appointments?: No Do you have trouble paying your heating and electricity bill?: No Do you have trouble taking care of your child, family member or friend?: No Do you have trouble with day-to-day activities such as bathing, preparing meals, shopping, managing finances, etc.?: No Are you currently unemployed and looking for a job?: No Are you interested in more education?: No Please select the resources that you would like help with: None Currently or been in a relationship where the following occur: No concerns reported THRIVE Score: 0 AUDIT C Alcohol Use Questionnaire (AUDIT-C) 1. How often do you have a drink containing alcohol?: Never Total Score: 0 TY-7 AMB Questionnaire TY-7 Date TY - 7 assessed: 05/14/24 Feeling nervous, anxious, or on edge: 1 = Several days Not being able to stop or control worryin = Several days Worrying too much about different things: 1 = Several days Trouble relaxin = Not at all Being so restless that it is hard to sit still: 0 = Not at all Becoming easily annoyed or irritable: 0 = Not at all Feeling afraid as if something awful might happen: 0 = Not at all Total TY-7 score (0-4 normal; 5-9 mild; 10-14 moderate; 15-21 severe): 3 Source: Developed by Drs. Reinaldo Madrigal, Carlitos Steele and colleagues, with an educational wilfredo from [employer]. TY-7 Assessment Billing TY-7 Assessment Tool: TY-7 Assessment 21045 Review of Systems Const Details: Const Denies chills, Denies fatigue, Denies fever(s), Denies headache(s) and Denies weakness ENT Denies dizziness and Denies headache(s) Card Denies chest pain, Denies lightheadedness, Denies dyspnea and Denies other (Palpitations) Resp Denies cough, Denies dyspnea, Denies wheezing and Denies other ( shortness of breath) GI Denies abdominal pain, Denies melena, Denies hematochezia, Denies change in bowel habits, Denies dyspepsia and Denies nausea Denies hematuria and Denies dysuria Musc Denies abnormal gait, Denies myalgias, Denies arthralgias, Denies numbness and Denies tingling Skin/Breast Denies rash, Denies unusual bruising and Denies wounds Neuro Denies abnormal gait, Denies dizziness, Denies headache(s), Denies memory loss, Denies numbness, Denies Sensory deficit (Neuro), Denies tingling and Denies weakness Psych Denies anxiety, Denies depression, Denies memory loss Endo Denies cold intolerance, Denies fatigue, Denies heat intolerance, Denies polydipsia and Denies polyuria Aller/Immun Denies wheezing Physical exam (Primary Care) Vital Signs: Last Vital Signs Temp 97.0 F 05/14/24 15:48 Pulse 64 05/14/24 15:48 Resp 16 05/14/24 15:48 BP 112/56 L 05/14/24 15:48 Pulse Ox 100 05/14/24 15:48 Oxygen Delivery Method Room Air 05/14/24 15:48 BMI result Body Mass Index 31.2 Tobacco/Smoking Status: Tobacco use Status Tobacco use date assessed 05/14/24 05/14/24 15:54 Patient Tobacco Use Status Former Tobacco user 05/14/24 15:44 Tobacco use type Cigarette 05/14/24 15:44 e-Cigarette/Vaping Use Former Use 05/14/24 15:44 PHQ-9: PHQ-9 Score PHQ-9: Total score 3 05/14/24 15:54 Depression Screening Interpretation: Negative Thrive Assessment: Date of Thrive Assessment Date Thrive assessed 05/14/24 05/14/24 15:44 Currently or been in a relationship where the following occur: No concerns reported Const Other: General: no acute distress and well developed Nutritional Appearance: well nourished Orientation/consciousness: patient oriented x3 HENIA Head: Yes normocephalic and Yes atraumatic Eyes General: appearance normal, both eyes and all related structures Pupils: Equal, round and reactive pupils present EOM: EOMs intact bilaterally Resp Effort & Inspection: normal respiratory effort Auscultation: clear to auscultation bilaterally Cardio Rate: regular rate Rhythm: regular rhythm Heart sounds: S1 normal heart sound present, S2 normal heart sound present, no gallops, no murmurs and no rubs GI Palpation (GI): No Abdominal aortic bruit present, Soft to palpation, nontender, No hepatosplenomegaly present and No Rebound tenderness present Auscultation: normal bowel sounds General: Yes no CVA tenderness Back/Spine/Pelvis Back: no CVA tenderness Cervical Spine: cervical ROM normal and No Cervical spine tenderness Thoracic/Lumbar Spine: thoraco-lumbar ROM normal, No pain with thoraco-lumbar ROM, No thoracic spinal tenderness and No lumbar spinal tenderness Extrem General: Yes normal to inspection, No edema and No calf tenderness Skin General: warm and dry. Normal skin color. Normal skin turgor Neuro General: patient oriented x3, gait normal and no focal neuro deficit Cranial nerves: Yes Equal, round and reactive pupils present Cognition (Neuro): normal cognition Gait exam (Neuro): Normal gait present Sensory Exam: No Sensory deficit (Neuro) Psych Appearance: grossly normal Affect: normal affect Attitude: cooperative Thought process: Normal thought process present Results AMB Hemoglobin A1c AMB Hemoglobin A1c 5.0 % Last Edit by Mally Giang on 05/14/24 16:15 Coding Level of Care Code Est Pt Level 3 (69275) Diagnoses Type 2 diabetes mellitus E11.9 Bipolar affective, mixed, severe F31.63 Anxiety F41.9 Additional Codes TY-7 Assessment Billing - TY-7 Assessment Tool: TY-7 Assessment 07144 ([id number]) PHQ-9 - 46185 - PHQ-9 Billing: Yes ([id number]) Assessment & Plan Assessment & Plan (1) Type 2 diabetes mellitus: Code(s): E11.9 - Type 2 diabetes mellitus without complications Category: Medical Plan: Continue with current diabetes management, with A1c check again in three months to ensure continued glycemic control. Plan for a fasting lipid profile at the next lab visit to monitor cholesterol levels, considering diabetes. (2) Bipolar affective, mixed, severe: Code(s): F31.63 - Bipolar disorder, current episode mixed, severe, without psychotic features Category: Medical Plan: Continue with current management regimen, monitor mood stability, and address any exacerbations if they arise. (3) Anxiety: Code(s): F41.9 - Anxiety disorder, unspecified Category: Medical Plan: Plan as above. Plan I discussed with the patient her current management plan for anxiety, bipolar disorder, and diabetes. For her diabetes, I noted the excellent control of her A1c levels. We agreed on continuing the current diabetic management plan and added a follow-up for lipid profile. Regarding anxiety and bipolar disorder, I reinforced the importance of maintaining mood stability and agreed on the current management strategy. A recommendation for a full physical exam and a three-month follow-up was agreed upon. Orders: Orders Lipid Panel Today E78.00 - Pure hypercholesterolemia, unspecified AMB Hemoglobin A1c Today Z13.9 - Encounter for screening, unspecified Patient Instructions: - Continue current diabetes management and monitor blood glucose levels regularly. - Maintain regular physical activity. - Schedule and complete a fasting lipid profile before the next visit. - Follow up for a comprehensive physical examination and lab review in three months. Patient was informed and verbally consented to the use of an ambient scribe for clinic note documentation during this visit.
[2024-05-14 15:48] VITALS: BP 112/56; PULSE 64; RESP 16; TEMP 36.1; O2SAT 100; BMI 31.2
== END 2024-05-14 16:23 | disposition home or self-care (01) ==
PROVIDERS: PCP Nurse Practitioner Family; Visit Provider Nurse Practitioner Family
DX: E11.9 Type 2 diabetes mellitus without complications (principal); F31.63 Bipolar disorder, current episode mixed, severe, without psychotic features; F41.9 Anxiety disorder, unspecified; Z13.9 Encounter for screening, unspecified

== ENCOUNTER → 2024-05-14 15:40 | Outpatient (BNVA) | payer OTHER, SELFPAY | PROVIDERS: PCP Nurse Practitioner Family; Visit Provider Nurse Practitioner Family | DX: E11.9 Type 2 diabetes mellitus without complications (principal); F31.63 Bipolar disorder, current episode mixed, severe, without psychotic features; F41.9 Anxiety disorder, unspecified | CPT/HCPCS: 83036; 96127; 99212 ==

== ENCOUNTER 2024-06-18 14:50 | Outpatient (AMB) | payer OTHER, SELFPAY ==
--- NOTE | 2024-06-18 14:42 | A.OFFVIS_ITS ---
VS Expanded 06/18/24 14:43 Height 5 ft 5 in Weight 174 lb 2 oz BMI 29.0 Intake Visit Reasons: TELEPHONE PO LSG 02/02/24 Allergies No Known Allergies Allergy (Verified 05/14/24 16:14) Medication List - Last Reconciled 06/18/24 by DERRICK Bae atorvastatin 20 mg PO BEDTIME 30 days bisacodyl (Dulcolax (bisacodyl)) 10 mg PO BEDTIME levonorgestrel (Mirena) 1 device intrauterine ONCE olanzapine 10 mg PO QPM trazodone 50 mg PO BEDTIME PRN 90 days HPI Comments Details: This?is a?39?yo female who is s/p LSG 02/02/2024. Presents for 4.5 month post op visit. Weight loss of 16lbs since last OV.? No complaints of nausea, emesis, abdominal pain or reflux, or constipation. Present meal plan includes: 3 Isopure drinks- 1/2 scoop each 1 protein bar started protein/veg - 4 ff/4ff thinks she could increase hydration taking MVI Exercise routine includes: goes on a walk or goes to gym, tracks calories- 350 alfredo/day started weight training PFSH Medical History (Updated 06/18/24 @ 14:48 by DERRICK Bae) Type 2 diabetes mellitus Pre-op evaluation H. pylori infection Elevated fasting glucose Smoking trying to quit Laboratory tests ordered as part of a complete physical exam (CPE) Morbid obesity Elevated blood pressure reading Normal physical exam Bipolar disorder Elevated cholesterol Diabetes HPV (human papilloma virus) infection Depression Anxiety Surgical History (Updated 02/27/24 @ 11:28 by Shantell Orozco CMA) Hx of laparoscopic partial gastrectomy History of esophagogastroduodenoscopy (EGD) Family History Other Mental health disorder Substance abuse Social History Household Members: Children Household Members Other:: minor children Housing: Apartment Are you a primary nurse behavioral health care to a significant other at home: Yes Do you presently have visiting nurse or other home services: No 75 years or older and lives alone: No Alcohol intake: current Alcohol intake frequency: holidays/special occasions only Patient Tobacco Use Status: Former Tobacco user Tobacco use type: Cigarette Cigarette Packs Per Day: 0.25 Cigarettes Per Day: 5.0 Years Smoked: 20 e-Cigarette/Vaping Use: Former Use Second Hand Smoke Exposure: Yes Substance Use Type: Former Substance User and Marijuana service: No Current occupational status: employed 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 Telehealth Telehealth Telehealth Platform: Telephone Location of provider rendering services: other Location of patient: address on file Patient Identification confirmed using: Name, : Yes Telehealth method: voice only Patient verbally consented to treatment: Yes Patient verbally consented to billing insurance company: Yes Patient informed of any privacy concerns related to visit: Yes Minutes spent on Phone/Video with Pt.: 12 Assessment & Plan Assessment & Plan (1) S/P laparoscopic sleeve gastrectomy: Code(s): Z98.84 - Bariatric surgery status Category: Surgical (2) Overweight: Code(s): E66.3 - Overweight Category: Medical Plan Pt now no longer obese. Discussed expecting possible increase in muscle mass now that she is weight training. Continue meal plan per Dr. Melton RTC 6 weeks, will order labs at that time for 6mo appt. I spent a total of 30 minutes reviewing/updating records, examining the patient and counseling the patient on weight management as detailed above.
[2024-06-18 14:43] VITALS: BMI 29.0
== END 2024-06-18 15:01 | disposition home or self-care (01) ==
LOC: HO.HBS 14:50
PROVIDERS: PCP Nurse Practitioner Family; Visit Provider Physician Assistant Surgical
DX: E66.3 Overweight (principal); Z68.29 Body mass index [BMI] 29.0-29.9, adult; Z90.3 Acquired absence of stomach [part of]; Z98.84 Bariatric surgery status
CPT/HCPCS: 99214; G2211

== ENCOUNTER 2024-10-16 14:02 | Outpatient (AMB) | payer OTHER, SELFPAY ==
--- NOTE | 2024-10-16 14:12 | MHC.OFFWIV ---
Intake Vital Signs 10/16/24 14:14 Height 5 ft 5 in BP 110/62 Blood Pressure Location Rt brachial Position Sitting Pulse 54 Pulse Source Pulse Oximeter Temp 98.3 F Temp Source Oral Pulse Oximetry (%) 100 Oxygen Delivery Method Room Air Intake Visit Reasons: EP-sob, chest tightness, palpitation Patient Tobacco Use Status: Former Tobacco user Accompanied by: Self / Same As Patient Allergies No Known Allergies Allergy (Verified 10/16/24 14:14) Do you need a note to return to daycare/school/sports/work: No HPI HPI Comments History of Present Illness Details This is a 39-year-old female with a past medical history of anxiety, depression and hyperlipidemia presenting for evaluation of chest tightness and a fluttering in her chest that has been intermittent since Tuesday. Patient states on Tuesday she felt a fluttering in her chest coupled with shortness of breath. She had no symptoms on Tuesday, but her symptoms recurred yesterday and was associated with chest tightness which lasted less than 10 minutes. Of note, patient is prescribed medication for hyperlipidemia, anxiety and depression however she has not been taking his medication for the past 3 months. Patient is chest pain-free at this time. [facility] Medical History (Updated 10/16/24 @ 15:25 by Kianna Ramirez PA-C) Type 2 diabetes mellitus Pre-op evaluation H. pylori infection Elevated fasting glucose Smoking trying to quit Laboratory tests ordered as part of a complete physical exam (CPE) Morbid obesity Elevated blood pressure reading Normal physical exam Bipolar disorder Elevated cholesterol Diabetes HPV (human papilloma virus) infection Depression Anxiety Surgical History (Updated 02/27/24 @ 11:28 by Shantell Orozco CMA) Hx of laparoscopic partial gastrectomy History of esophagogastroduodenoscopy (EGD) Family History Other Mental health disorder Substance abuse Social History Household Members: Children Household Members Other:: minor children Housing: Apartment Are you a primary post anesthesia care unit nurse to a significant other at home: Yes Do you presently have visiting nurse or other home services: No 75 years or older and lives alone: No Alcohol intake: current Alcohol intake frequency: holidays/special occasions only Patient Tobacco Use Status: Former Tobacco user Tobacco use type: Cigarette Cigarette Packs Per Day: 0.25 Cigarettes Per Day: 5.0 Years Smoked: 20 e-Cigarette/Vaping Use: Former Use Second Hand Smoke Exposure: Yes Substance Use Type: Former Substance User and Marijuana service: No Current occupational status: employed Current occupation: [employer] Current occupational exposures/hazards: No Cognitive needs: No Hearing needs: No Vision needs: Yes Review of Systems Const All systems reviewed & are unremarkable except as noted in HPI and below Reports no additional complaints Eyes Reports no additional complaints ENT Reports no additional complaints Card Reports chest pain and Reports dyspnea Resp Reports as per HPI and Reports dyspnea GI Reports no additional complaints, Denies nausea and Denies vomiting Reports no additional complaints Musc Reports no additional complaints Skin/Breast Reports system reviewed and no additional complaints, except as documented Neuro Reports no additional complaints Psych Reports anxiety, Denies depression, Denies homicidal ideation and Denies suicidal ideation Endo Reports no additional complaints Thaddeus/Lymph Reports no additional complaints Aller/Immun Reports no additional complaints Physical Exam Vital Signs: Last Vital Signs Temp 98.3 F 10/16/24 14:14 Pulse 54 10/16/24 14:14 BP 110/62 10/16/24 14:14 Pulse Ox 100 10/16/24 14:14 Oxygen Delivery Method Room Air 10/16/24 14:14 Const General: cooperative, healthy appearing, comfortable, no acute distress, well developed, alert, awake and Physically active; No ill appearing Nutritional Appearance: average body habitus Orientation/consciousness: patient oriented x3 Limitations: no limitations Resp Effort & Inspection: normal respiratory effort, able to speak in complete sentences, no audible wheezes, no cough, no nasal flaring and not tachypneic Auscultation: clear to auscultation bilaterally Cardio Rate: regular rate Rhythm: regular rhythm GI Palpation (GI): Soft to palpation, nontender and no guarding Skin General skin exam: no rashes or lesions noted Neuro General: patient oriented x3 Psych Appearance: grossly normal Mental Status: mental status grossly normal Attitude: cooperative Thought process: Normal thought process present Insight: Good insight present (Psych) Judgement: Good judgement present (Psych) Results Reviewed Results Reviewed: EKG: NSR rate of 64bpm Assessment & Plan Assessment & Plan (1) Chest tightness: Comment: EKG without ischemic changes; given the history of hyperlipidemia, it is possible that patient's symptoms are consistent with angina which is discussed with the patient. Alternatively, patient's symptoms may likely be associated with untreated anxiety. Patient will follow up with her primary care provider however is advised to go to the emergency department if her chest tightness persists. Patient is in agreement with this plan of care. Code(s): R07.89 - Other chest pain Plan: Follow up with PCP for ongoing management of both hyperlipidemia and anxiety/depression; patient to go to ED if chest tightness recurs or persists. Orders: Orders AMB EKG-In Office Today R07.89 - Other chest pain Coding Level of Care Code Est Pt Level 4 (39142) Diagnoses Chest tightness R07.89 Time Spent (min) 30
[2024-10-16 14:14] VITALS: BP 110/62; PULSE 54; TEMP 36.8; O2SAT 100
--- NOTE | 2024-10-16 14:23 | MHC.OFFWIV ---
Intake Vital Signs 10/16/24 14:14 Height 5 ft 5 in BP 110/62 Blood Pressure Location Rt brachial Position Sitting Pulse 54 Pulse Source Pulse Oximeter Temp 98.3 F Temp Source Oral Pulse Oximetry (%) 100 Oxygen Delivery Method Room Air Intake Visit Reasons: EP-sob, chest tightness, palpitation Intake Note: Pt came into the [place] [facility]. Ambulated (I) gait steady. Pt c/o chest tightness/palpitations/shortness of breath x yesterday. Pt speaks in full sentences. A/o x 3 no shortness of breath/dion noted. Pt stated that she discontinued medications Olanzapine and Atorvastatin couple months ago with pcp/provider orders. Pt. Vs 113/73 (right)-73-100% on room air. No apparent distress noted. Patient Tobacco Use Status: Former Tobacco user Allergies No Known Allergies Allergy (Verified 10/16/24 14:14) [facility] Medical History (Updated 06/18/24 @ 14:48 by DERRICK Bae) Type 2 diabetes mellitus Pre-op evaluation H. pylori infection Elevated fasting glucose Smoking trying to quit Laboratory tests ordered as part of a complete physical exam (CPE) Morbid obesity Elevated blood pressure reading Normal physical exam Bipolar disorder Elevated cholesterol Diabetes HPV (human papilloma virus) infection Depression Anxiety Surgical History (Updated 02/27/24 @ 11:28 by Shantell Orozco CMA) Hx of laparoscopic partial gastrectomy History of esophagogastroduodenoscopy (EGD) Family History Other Mental health disorder Substance abuse Social History Household Members: Children Household Members Other:: minor children Housing: Apartment Are you a primary nursing care partner to a significant other at home: Yes Do you presently have visiting nurse or other home services: No 75 years or older and lives alone: No Alcohol intake: current Alcohol intake frequency: holidays/special occasions only Patient Tobacco Use Status: Former Tobacco user Tobacco use type: Cigarette Cigarette Packs Per Day: 0.25 Cigarettes Per Day: 5.0 Years Smoked: 20 e-Cigarette/Vaping Use: Former Use Second Hand Smoke Exposure: Yes Substance Use Type: Former Substance User and Marijuana service: No Current occupational status: employed 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 Physical Exam Vital Signs: Last Vital Signs Temp 98.3 F 10/16/24 14:14 Pulse 54 10/16/24 14:14 BP 110/62 10/16/24 14:14 Pulse Ox 100 10/16/24 14:14 Oxygen Delivery Method Room Air 10/16/24 14:14 Coding
== END 2024-10-16 16:30 | disposition home or self-care (01) ==
PROVIDERS: PCP Nurse Practitioner Family; Visit Provider Physician Assistant
DX: R07.89 Other chest pain (principal)

== ENCOUNTER → 2024-10-16 14:02 | Outpatient (BNVA) | payer OTHER, SELFPAY | PROVIDERS: PCP Nurse Practitioner Family; Visit Provider Physician Assistant | DX: R07.89 Other chest pain (principal) | CPT/HCPCS: 93005; 99212 ==

== ENCOUNTER 2025-01-01 09:58 | Outpatient (REF) | payer OTHER, SELFPAY ==
[2025-01-01 14:17] LABS: Cholesterol 192 mg/dL (<200); HDL Cholesterol 84 mg/dL (>40); Triglycerides 46 mg/dL (<150)
== END 2025-01-01 09:59 | disposition home or self-care (01) ==
LOC: HO.HMGCLDS 09:58
PROVIDERS: PCP Nurse Practitioner Family; Visit Provider Nurse Practitioner Family
DX: E78.00 Pure hypercholesterolemia, unspecified (principal)
CPT/HCPCS: 36415; 80061

== ENCOUNTER 2025-01-07 12:14 | Outpatient (AMB) | payer OTHER, SELFPAY ==
--- NOTE | 2025-01-07 12:25 | A.OFFPC_ITS ---
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 Required: No Is last menstrual period known: Yes Last menstrual period: 01/07/25 Post menopausal: No Patient : No Allergies No Known Allergies Allergy (Verified 01/07/25 12:37) Medication List - Last Reconciled 01/07/25 by Maye Wesley CNP levonorgestrel (Mirena) 1 device intrauterine ONCE Tobacco use date assessed: 01/07/25 Dental Screening Dental Screen Date: 01/07/25 Did you have a dental visit in the last 12 months?: Yes Did you have a dental problem in the last 6 months where you did not have access to dental care?: No Was dental information given to patient?: Patient has dentist HPI HPI Comments History of Present Illness Details 39-year-old female presents for an exten ded physical exam. She had gastric sleeve surgery in 01/2024 and has lost 120 lb since. She has been making healthy dietary choices and exercising routinely. Her mood has also significantly improved. She has not taking psychotropic medication shortly after her gastric sleeve surgery. Acute issue(s) - She reports cold sensation to the tips of her fingers and toes with intermittent numbness to her toes. Her symptoms have been going on almost persistently for several years. Past Medical History - Anxiety, depression, bipolar disorder, hypercholesterolemia, diet-controlled type 2 diabetes, and obesity. She is on mirena IUD Social History - Former smoker, quit in 12/2023, smoked 1-2 packs weekly for about 20 years. History of vaping x 1-1.5 month after quit smoking. Drinks 1 glass of mix drink 3 times weekly. Smokes or consumes cannabis gummies occasionally on her days off. - Has been making healthy dietary choice s. Exercises routinely. Generally sleep well Health maintenance - Last eye exam a year ago. Requests ref erral. Referred to ophthalmology for routine eye exam - Last dental visit was last year. She h as a dental visit scheduled in 04/2025. - Last tetanus vaccine was more than 10 years ago; received Tdap vaccine today - Has not been vaccinated for the flu ; declines vaccination - Last pap smear test was in 11/28/2024 a t [facility]: normal - She has never had a mammogram. Mammog rod ordered [facility] Medical History (Updated 01/07/25 @ 13:13 by Maye Wesley CNP) Laboratory tests ordered as part of a complete physical exam (CPE) Type 2 diabetes mellitus Pre-op evaluation H. pylori infection Elevated fasting glucose Smoking trying to quit Morbid obesity Elevated blood pressure reading Normal physical exam Bipolar disorder Elevated cholesterol Diabetes HPV (human papilloma virus) infection Depression Anxiety Surgical History Hx of laparoscopic partial gastrectomy History of esophagogastroduodenoscopy (EGD) Family History Other Mental health disorder Substance abuse Social History Household Members: Children Household Members Other:: minor children Housing: Apartment Are you a primary child care centre manager to a significant other at home: Yes Do you presently have visiting nurse or other home services: No 75 years or older and lives alone: No Alcohol intake: current Alcohol intake frequency: holidays/special occasions only Patient Tobacco Use Status: Former Tobacco user Tobacco use type: Cigarette Cigarette Packs Per Day: 0.25 Cigarettes Per Day: 5.0 Years Smoked: 20 e-Cigarette/Vaping Use: Former Use Second Hand Smoke Exposure: Yes Substance Use Type: Former Substance User and Marijuana service: No Current occupational status: employed 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 1. Little interest or pleasure in doing things: not at all 2. Feeling down, depressed, or hopeless: not at all 3. Trouble falling or staying asleep, or sleeping too much: several days 4. Feeling tired or having little energy: not at all 5. Poor appetite or overeating: not at all 6. Feeling bad about yourself - or that you are a failure or have let yourself or your family down: not at all 7. Trouble concentrating on things, such as reading the newspaper or watching television: several days 8. Moving or speaking so slowly that other people could have noticed. Or the opposite - being so fidgety or restless that you have been moving around a lot more than usual: not at all 9. Thoughts that you would be better off or of hurting yourself in some way: not at all Total score: 2 Depression Screening Interpretation: Negative Depression Screening Done: Yes 06651 - PHQ-9 Billing: Yes Source: Developed by Drs. Reinaldo Madrigal, Liset Mesa, Carlitos Yu and colleagues, with an educational wilfredo from [employer]. Thrive Questionnaire Date Thrive assessed: 01/07/25 I am a: Patient What is your living situation today?: I have a steady place to live Within the past 12 months, did the food you bought not last and you didn't have the money to get more?: Never true Within the past 12 months, did you worry whether your food would run out before you got money to buy more?: Never true Do you have trouble paying for medicines?: No Do you have trouble getting transportation to medical appointments?: No Do you have trouble paying your heating and electricity bill?: No Do you have trouble taking care of your child, family member or friend?: No Do you have trouble with day-to-day activities such as bathing, preparing meals, shopping, managing finances, etc.?: No Are you currently unemployed and looking for a job?: No Are you interested in more education?: No Please select the resources that you would like help with: None Currently or been in a relationship where the following occur: No concerns reported THRIVE Score: 0 AUDIT C Alcohol Use Questionnaire (AUDIT-C) 1. How often do you have a drink containing alcohol?: 2-3 times a week 2. How many drinks containing alcohol do you have on a typical day when you are drinking?: 1 or 2 3. How often do you have six or more drinks on one occasion?: Less than monthly Total Score: 4 Score Reviewed/Action Taken: Yes TY-7 AMB Questionnaire TY-7 Date TY - 7 assessed: 01/07/25 Feeling nervous, anxious, or on edge: 1 = Several days Not being able to stop or control worryin = Several days Worrying too much about different things: 0 = Not at all Trouble relaxin = Not at all Being so restless that it is hard to sit still: 0 = Not at all Becoming easily annoyed or irritable: 0 = Not at all Feeling afraid as if something awful might happen: 2 = More than half the days Total TY-7 score (0-4 normal; 5-9 mild; 10-14 moderate; 15-21 severe): 4 Source: Developed by Drs. Reinaldo Madrigal, Liset Mesa, Carlitos uY and colleagues, with an educational wilfredo from [employer]. TY-7 Assessment Billing TY-7 Assessment Tool: TY-7 Assessment 99747 Review of Systems Const Details: Denies chills, Denies fatigue, Denies fever(s), Denies headache(s) and Denies weakness HEENT Denies change in vision, Denies dizziness, Denies headache(s), Denies hearing loss, Denies nasal congestion, Denies sinus pain, Denies sinus pressure and Denies sore throat Card Denies chest pain, Denies lightheadedness, Denies dyspnea and Denies other (palpitations) Resp Denies cough, Denies dyspnea and Denies wheezing GI Denies abdominal pain, Denies melena, Denies hematochezia, Denies change in bowel habits, Denies dyspepsia and Denies nausea Denies hematuria and Denies dysuria Musc Reports as per HPI. Skin/Breast Denies rash, Denies unusual bruising and Denies wounds Neuro Denies abnormal gait, Denies dizziness, Denies headache(s), Denies memory loss, Denies numbness, Denies Sensory deficit (Neuro), Denies tingling and Denies weakness Psych Denies anxiety, Denies depression and Denies memory loss Endo Reports cold intolerance, Denies fatigue, Denies heat intolerance, Denies polydipsia and Denies polyuria Thaddeus/Lymph Denies easy bleeding and Denies easy bruising Aller/Immun Denies wheezing Physical exam (Primary Care) Vital Signs: Last Vital Signs Temp 99.2 F 01/07/25 12:32 Pulse 63 01/07/25 12:32 Resp 16 01/07/25 12:32 BP 107/60 01/07/25 12:32 Pulse Ox 98 01/07/25 12:32 Oxygen Delivery Method Room Air 01/07/25 12:32 BMI result Body Mass Index 23.5 Tobacco/Smoking Status: Tobacco use Status Tobacco use date assessed 01/07/25 01/07/25 12:31 Patient Tobacco Use Status Former Tobacco user 01/07/25 12:31 Tobacco use type Cigarette 01/07/25 12:31 e-Cigarette/Vaping Use Former Use 01/07/25 12:31 PHQ-9: PHQ-9 Score PHQ-9: Total score 2 01/07/25 13:15 Depression Screening Interpretation: Negative Thrive Assessment: Date of Thrive Assessment Date Thrive assessed 01/07/25 01/07/25 12:31 Currently or been in a relationship where the following occur: No concerns reported Const Other: General: no acute distress, well developed, alert and awake Nutritional Appearance: well nourished Orientation/consciousness: patient oriented x3 HENMT Head: Yes normocephalic and Yes atraumatic Ears: hearing grossly normal bilaterally and TM's normal bilaterally General nose exam: Normal external nose present and Normal nares present Mouth: Normal oral and palatal mucosa present and moist mucous membranes Teeth and gingiva: dentition normal Throat: Yes oropharynx normal Eyes Pupils: Equal, round and reactive pupils present and Pupil accommodation reflex normal EOM: EOMs intact bilaterally Neck Neck: Yes normal visual inspection, Yes no lymphadenopathy and Yes trachea midline Thyroid: Thyroid normal Carotids: no bruits Lymphatic: no lymphadenopathy noted Chest Chest palpation & inspection: normal inspection of the chest Resp Effort & Inspection: normal respiratory effort Auscultation: clear to auscultation bilaterally Cardio Rate: regular rate Rhythm: regular rhythm Heart sounds: S1 normal heart sound present, S2 normal heart sound present, no gallops, no murmurs and no rubs Bruits: no abdominal aortic bruits and no carotid bruits GI Palpation (GI): No Abdominal aortic bruit present, Soft to palpation, nontender, No hepatosplenomegaly present and No Rebound tenderness present Auscultation: normal bowel sounds General: Yes no CVA tenderness Back/Spine/Pelvis Back: no CVA tenderness Cervical Spine: cervical ROM normal and No Cervical spine tenderness Thoracic/Lumbar Spine: thoraco-lumbar ROM normal, No pain with thoraco-lumbar ROM, No thoracic spinal tenderness and No lumbar spinal tenderness Skin General: warm and dry. Normal skin color. Normal skin turgor Lesions: no lesions Rashes: no rashes Trauma: no lacerations or abrasions Wounds: no wounds Nails: normal Neuro General: patient oriented x3, gait normal and CN's II-XI intact bilaterally Cranial nerves: Yes Equal, round and reactive pupils present Cognition (Neuro): normal cognition Gait exam (Neuro): Normal gait present Motor exam (neuro): 5/5 motor strength present throughout Sensory Exam: No Sensory deficit (Neuro) Deep tendon reflexes (DTR's): Right patellar reflex intensity grade: 2+ and Left patellar reflex intensity grade: 2+ Extrem General: Yes normal to inspection, No edema and No calf tenderness Psych Appearance: grossly normal Affect: normal affect Attitude: cooperative Thought process: Normal thought process present Results AMB Hemoglobin A1c AMB Hemoglobin A1c 4.7 % Last Edit by Mally Giang MA on 01/07/25 16:06 Immunizations Boostrix Tdap 2.5 Lf unit-8 mcg-5 Lf/0.5 mL intramuscular syringe Performing Provider: Maye Wesley CNP Performing Location: [facility] Administered by: Elliott Robbins RN on 01/07/25 13:15 2 Dose Route Admin Location Dispensed Lot Number Expiration Date [facility] Ordn[employer] Equipment 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 0.5 mL IM Left Deltoid 0.5 mL [id number] 04/02/27 [id number] [employer] Total Dispensed Waste 0.5 mL 0 % VIS Given Date VIS Provided VIS Publication Date 01/07/25 Single Vaccine 21 Eligibility Eligibility Date Funding Source Not [facility] Eligible 01/07/25 Private Coding Level of Care Code Est Pt Level 3 (91145) Diagnoses Normal physical examination, routine Z00.00 Bipolar affective, mixed, severe F31.63 Eye exam, routine Z01.00 Type 2 diabetes mellitus E11.9 Raynauds phenomenon I73.00 Breast cancer screening by mammogram Z12.31 Laboratory tests ordered as part of a complete physical exam (CPE) Z00.00 Additional Codes TY-7 Assessment Billing - TY-7 Assessment Tool: TY-7 Assessment 55298 ([id number]) PHQ-9 - 72503 - PHQ-9 Billing: Yes ([id number]) Assessment & Plan Assessment & Plan (1) Normal physical examination, routine: Code(s): Z00.00 - Encounter for general adult medical examination without abnormal findings Category: Medical Plan: No significant functional limitation noted. Continue current treatment regimen. Healthy diet and routine exercise encouraged. Perform lab work and follow-up for telehealth visit in 2-4 weeks for labs reviewed. Return sooner with symptoms or concerns. Verbalized understanding and agreed with the plan. (2) Bipolar affective, mixed, severe: Code(s): F31.63 - Bipolar disorder, current episode mixed, severe, without psychotic features Category: Medical Plan: She had gastric sleeve surgery in 01/2024 and has lost 120 lb since. She has been making healthy dietary choices and exercising routinely. Her mood has also significantly improved. She has not taking psychotropic medication shortly after her gastric sleeve surgery. PHQ-9 and TY-7 scores are normal. Healthy diet and routine exercise encouraged. Follow-up as needed. Verbalized understanding and agreed with the plan. (3) Eye exam, routine: Code(s): Z01.00 - Encounter for examination of eyes and vision without abnormal findings Category: Medical Plan: Last eye exam a year ago. Requests referral. Referred to ophthalmology for routine eye exam. (4) Type 2 diabetes mellitus: Code(s): E11.9 - Type 2 diabetes mellitus without complications Category: Medical Plan: Diet controlled. A1c today is 4.7%, within goal of less than 7.0%. Previous A1c was 5.0%. Continue current treatment regimen. Routine exercise encouraged. Will monitor A1c level every year or as needed. Verbalized understanding and agreed with the plan. (5) Raynauds phenomenon: Code(s): I73.00 - Raynaud's syndrome without gangrene Category: Medical Plan: She reports cold sensation to the tips of her fingers and toes with intermittent numbness to her toes. Her symptoms have been going on almost persistently for several years. Will check lab results. Supportive treatment instructed and encouraged. Follow-up with worsening or new symptoms. Verbalized understanding and agreed with the plan. (6) Breast cancer screening by mammogram: Code(s): Z12.31 - Encounter for screening mammogram for malignant neoplasm of breast Category: Medical Plan: She has never had a mammogram. Mammogram ordered. (7) Laboratory tests ordered as part of a complete physical exam (CPE): Code(s): Z00.00 - Encounter for general adult medical examination without abnormal findings Category: Medical Plan: Fasting labs ordered as part of a complete physical exam. Advised to fast for at least 10 hours before getting labs drawn. May drink water Verbalized understanding and agreed with treatment plan. Orders: Orders Comprehensive Hoffman. Panel Fast Today Z00.00 - Encounter for general adult medical examination without abnormal findings AMB Hemoglobin A1c Today Z13.9 - Encounter for screening, unspecified MM screening mammo BI Today Z12.31 - Encounter for screening mammogram for malignant neoplasm of breast Complete Blood Count Auto Diff Today Z00.00 - Encounter for general adult medical examination without abnormal findings TSH reflex Free T4 Today Z00.00 - Encounter for general adult medical e xamination without abnormal findings UA CC w/rflx Micro + Cult Today Z00.00 - Encounter for general adult medical examination without abnormal findings Vitamin D 25-OH Total Today Z00.00 - Encounter for general adult medical examination without abnormal findings Microalbumin, Random (w Creat) Today Z00.00 - Encounter for general adult medical examination without abnormal findings TDaP Immunization Today Z23 - Encounter for immunization Referrals Ophthalmology Referral Z01.00 - Encounter for examination of eyes and vision without abnormal findings
[2025-01-07 12:32] VITALS: BP 107/60; PULSE 63; RESP 16; TEMP 37.3; O2SAT 98; BMI 23.5
== END 2025-01-07 13:05 | disposition home or self-care (01) ==
LOC: HO.HMCFM 12:16
PROVIDERS: PCP Nurse Practitioner Family; Visit Provider Nurse Practitioner Family
DX: Z00.00 Encounter for general adult medical examination without abnormal findings (principal); F31.63 Bipolar disorder, current episode mixed, severe, without psychotic features; Z01.00 Encounter for examination of eyes and vision without abnormal findings; E11.9 Type 2 diabetes mellitus without complications; I73.00 Raynaud's syndrome without gangrene; Z12.31 Encounter for screening mammogram for malignant neoplasm of breast; Z13.9 Encounter for screening, unspecified; Z23 Encounter for immunization

== ENCOUNTER → 2025-01-07 12:14 | Outpatient (BNVA) | payer OTHER, SELFPAY | PROVIDERS: PCP Nurse Practitioner Family; Visit Provider Nurse Practitioner Family | DX: Z00.00 Encounter for general adult medical examination without abnormal findings (principal); F31.63 Bipolar disorder, current episode mixed, severe, without psychotic features; E11.9 Type 2 diabetes mellitus without complications; I73.00 Raynaud's syndrome without gangrene; Z23 Encounter for immunization | CPT/HCPCS: 83036; 90471; 90715; 96127; 99212 ==

== ENCOUNTER 2025-01-09 09:01 | Outpatient (REF) | payer OTHER, SELFPAY ==
[2025-01-09 10:01] LABS: MANUAL DIFF FLAG NO
[2025-01-09 10:20] LABS: Hematocrit 37.4 % (37.0-47.0); Hemoglobin 12.4 g/dl (12.0-16.0); Imm Gran Abs Auto 0.01 X10*3/uL (0.00-0.03); Imm Gran Pct Auto 0.2 % (0.0-0.4); Lymphocytes Absolute Auto 1.2 X10*3/uL (1.2-4.9); Mean Corpuscular HGB Conc 33.2 g/dl (31.0-35.0); Mean Corpuscular Hemoglobin 32.0 pg (27.0-33.0); Mean Corpuscular Volume 96.6 fL (80.0-98.0); NRBC Abs Auto 0.000 X10*3/uL (0.0-0.012); NRBC Pct Auto 0.0 /100WBC (0.0-0.2); Platelet Count 252 X10*3/uL (160-400); Red Blood Count 3.87 X10*6/uL (4.20-5.50); White Blood Count 4.3 X10*3/uL (4.8-10.8)
[2025-01-09 11:02] LABS: Alanine Aminotransferase 31 U/L (0-31); Albumin Level 4.3 g/dL (3.5-5.0); Alkaline Phosphatase 62 U/L (39-117); Anion Gap 10 (12-20); Aspartate Amino Transferase 40 U/L (5-31); Blood Urea Nitrogen 11 mg/dL (9-16); Calcium 8.6 mg/dL (8.4-10.2); Carbon Dioxide 28 mmol/L (22-29); Chloride 106 mmol/L (96-108); Estimated Glomerular Filt Rate > 60; Potassium 4.3 mmol/L (3.3-5.1); Sodium 140 mmol/L (135-145); Total Protein 6.9 g/dL (6.5-8.0)
[2025-01-09 11:20] LABS: Appearance Urine Clear; Glucose Urine UA Negative (Negative); PH 5.5 (5.0-9.0); Specific Gravity - Urine >= 1.030 (1.005-1.025); UMIC TRIGGER UACC YES
[2025-01-09 11:23] LABS: UACC Culture Trigger YES
[2025-01-09 12:23] LABS: Microalbum/Creatinine Ratio Ur 4.2 ug/mg cr (<30)
== END 2025-01-09 09:02 | disposition home or self-care (01) ==
LOC: HO.HMGCLDS 09:01
PROVIDERS: PCP Nurse Practitioner Family; Visit Provider Nurse Practitioner Family
DX: Z00.00 Encounter for general adult medical examination without abnormal findings (principal)
CPT/HCPCS: 36415; 80053; 81001; 82043; 82306; 82570; 84443; 85025; 87086

== ENCOUNTER 2025-02-19 14:24 | Outpatient (AMB) | payer OTHER, SELFPAY ==
--- NOTE | 2025-02-19 14:17 | A.OFFPC_ITS ---
Intake Visit Reasons: Telehealth 2-4 weeks labs review Intake Note: patient here for 2-4 wks Telehealth follow up for lab review Client Experience Specialist Required: No Is last menstrual period known: Yes Last menstrual period: 01/23/25 Post menopausal: No Patient : No Allergies No Known Allergies Allergy (Verified 02/19/25 14:18) Tobacco use date assessed: 02/19/25 Dental Screening Dental Screen Date: 02/19/25 Did you have a dental visit in the last 12 months?: Yes Did you have a dental problem in the last 6 months where you did not have access to dental care?: No Was dental information given to patient?: Patient has dentist HPI HPI Comments History of Present Illness Details 39-year-old female presents for a [facility] hospital visit for review of recent lab results. No acute symptoms this time. [facility], [facility] Medical History (Updated 02/19/25 @ 14:43 by Maye Wesley CNP) Laboratory tests ordered as part of a complete physical exam (CPE) Type 2 diabetes mellitus Pre-op evaluation H. pylori infection Elevated fasting glucose Smoking trying to quit Morbid obesity Elevated blood pressure reading Normal physical exam Bipolar disorder Elevated cholesterol Diabetes HPV (human papilloma virus) infection Depression Anxiety Surgical History Hx of laparoscopic partial gastrectomy History of esophagogastroduodenoscopy (EGD) Family History Other Mental health disorder Substance abuse Social History Household Members: Children Household Members Other:: minor children Housing: Apartment Are you a primary skin care instructor to a significant other at home: Yes Do you presently have visiting nurse or other home services: No 75 years or older and lives alone: No Alcohol intake: current Alcohol intake frequency: holidays/special occasions only Patient Tobacco Use Status: Former Tobacco user Tobacco use type: Cigarette Cigarette Packs Per Day: 0.25 Cigarettes Per Day: 5.0 Years Smoked: 20 Packs Per Year: 5 Packs per year/per ci.00 e-Cigarette/Vaping Use: Former Use Second Hand Smoke Exposure: Yes Substance Use Type: Former Substance User and Marijuana Patient : No service: No Current occupational status: employed 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 Reinaldo Madrigal, Liset Mesa, Carlitos Yu and colleagues, with an educational wilfredo from [employer]. Review of Systems Const Details: Denies chills, Denies fatigue, Denies fever(s), Denies headache(s) and Denies weakness Cardiac Denies chest pain, Denies claudication, Denies leg edema, Denies lightheadedness, Denies palpitations, Denies dyspnea, Denies dyspnea on exertion, Denies orthopnea and Denies other (Loss of consciousness) Resp Denies cough, Denies excessive phlegm production, Denies dyspnea, Denies dyspnea on exertion, Denies snoring and Denies wheezing Physical exam (Primary Care) Tobacco/Smoking Status: Tobacco use Status Tobacco use date assessed 02/19/25 02/19/25 14:18 Patient Tobacco Use Status Former Tobacco user 02/19/25 14:18 Tobacco use type Cigarette 02/19/25 14:18 e-Cigarette/Vaping Use Former Use 02/19/25 14:18 Thrive Assessment: Date of Thrive Assessment Date Thrive assessed 01/07/25 02/19/25 14:18 Const Other: Patient is alert and oriented x3 Telehealth Telehealth Telehealth Platform: Telephone Location of provider rendering services: practice address Location of patient: address on file Patient Identification confirmed using: Name, : Yes Telehealth method: voice only Patient verbally consented to treatment: Yes Patient verbally consented to billing insurance company: Yes Patient informed of any privacy concerns related to visit: Yes Coding Level of Care Code Tele Est Pt Level 3 (38775) Diagnoses Leukopenia D72.819 Elevated AST (SGOT) R74.01 Time Spent (min) 10 Assessment & Plan Assessment & Plan (1) Leukopenia: Code(s): D72.819 - Decreased white blood cell count, unspecified Category: Medical Plan: Recent CBC slightly low, 4.3. Equivocal although vitamin B12 or folate presents is possible. Will recheck CBC and check vitamin B12 and folate levels. Will make changes as needed. Encouraged to schedule an extended physical exam for after 01/07/2026. Return sooner with symptoms or concerns. Verbalized understanding and agreed with the plan. (2) Elevated AST (SGOT): Code(s): R74.01 - Elevation of levels of liver transaminase levels Category: Medical Plan: Recent AST level is slightly elevated, 40. Healthy diet/weight management encouraged. Will monitor liver enzymes periodically. Verbalized understanding and agreed with plan.
== END 2025-02-19 18:19 | disposition home or self-care (01) ==
LOC: HO.HMCFM 14:24
PROVIDERS: PCP Nurse Practitioner Family; Visit Provider Nurse Practitioner Family
DX: D72.819 Decreased white blood cell count, unspecified (principal); R74.01 Elevation of levels of liver transaminase levels

== ENCOUNTER 2025-04-05 08:34 | Outpatient (AMB) | payer OTHER, SELFPAY ==
--- NOTE | 2025-04-05 08:36 | MHC.PC.OV ---
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 Required: No Is last menstrual period known: Yes Last menstrual period: 03/14/25 Post menopausal: No Patient : No Allergies No Known Allergies Allergy (Verified 04/05/25 09:07) Medication List - Last Reconciled 04/05/25 by Maye Wesley CNP levonorgestrel (Mirena) 1 device intrauterine ONCE Tobacco use date assessed: 04/05/25 Dental Screening Dental Screen Date: 04/05/25 Did you have a dental visit in the last 12 months?: Yes Did you have a dental problem in the last 6 months where you did not have access to dental care?: No Was dental information given to patient?: Patient has dentist HPI HPI Comments History of Present Illness Details 39-year-old female presents for hospital discharge follow-up. She was evaluated and treated at [facility] ED on 03/20/2025 and 03/25/2025 for hives to her neck, arms, legs, and torso. No sore throat, swelling, or difficulty breathing. She was initially sent home on prednisone 50 mg daily for 5 days as well as an EpiPen. Her hives completely resolved but returned on 03/25/2025. She missed 2 doses of prednisone. She was encouraged to complete course of prednisone and take less sedating antihistamine like cetirizine or Claritin. Advised to follow-up with an grinder operator external tool if her symptoms become recurrent. She notes that the hives completely resolved before she was discharged at the ED on 03/25/2025. She completed course the course of prednisone as advised. She has not started taking less sedating antihistamine as instructed. She denies introducing new foods to her diet. She denies using new body products or laundry detergents. [facility] Medical History (Updated 04/05/25 @ 09:22 by Maye Wesley CNP) Laboratory tests ordered as part of a complete physical exam (CPE) Type 2 diabetes mellitus Pre-op evaluation H. pylori infection Elevated fasting glucose Smoking trying to quit Morbid obesity Elevated blood pressure reading Normal physical exam Bipolar disorder Elevated cholesterol Diabetes HPV (human papilloma virus) infection Depression Anxiety Surgical History Hx of laparoscopic partial gastrectomy History of esophagogastroduodenoscopy (EGD) Family History Other Mental health disorder Substance abuse Social History Household Members: Children Household Members Other:: minor children Housing: Apartment Are you a primary manager respiratory care to a significant other at home: Yes Do you presently have visiting nurse or other home services: No 75 years or older and lives alone: No Alcohol intake: current Alcohol intake frequency: holidays/special occasions only Patient Tobacco Use Status: Former Tobacco user Tobacco use type: Cigarette Cigarette Packs Per Day: 0.25 Cigarettes Per Day: 5.0 Years Smoked: 20 e-Cigarette/Vaping Use: Former Use Second Hand Smoke Exposure: Yes Substance Use Type: Former Substance User and Marijuana service: No Current occupational status: employed 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 Female Reproductive History Menstrual Date of last menstrual period: 03/14/25 Questionnaire Thrive Questionnaire Date Thrive assessed: 01/07/25 I am a: Patient What is your living situation today?: I have a steady place to live Within the past 12 months, did the food you bought not last and you didn't have the money to get more?: Never true Within the past 12 months, did you worry whether your food would run out before you got money to buy more?: Never true Do you have trouble paying for medicines?: No Do you have trouble getting transportation to medical appointments?: No Do you have trouble paying your heating and electricity bill?: No Do you have trouble taking care of your child, family member or friend?: No Do you have trouble with day-to-day activities such as bathing, preparing meals, shopping, managing finances, etc.?: No Are you currently unemployed and looking for a job?: No Are you interested in more education?: No Please select the resources that you would like help with: None Currently or been in a relationship where the following occur: No concerns reported THRIVE Score: 0 TY-7 AMB Questionnaire TY-7 Date TY - 7 assessed: 01/07/25 Source: Developed by Drs. Reinaldo Madrigal, Liset Mesa, Carlitos Yu and colleagues, with an educational wilfredo from [employer]. Review of Systems Const Details: Const Denies chills, Denies fatigue, Denies fever(s), Denies headache(s) and Denies weakness ENT Denies dizziness and Denies headache(s) Card Denies chest pain, Denies lightheadedness, Denies dyspnea and Denies other (Palpitations) Resp Denies cough, Denies dyspnea, Denies wheezing and Denies other ( shortness of breath) GI Denies abdominal pain, Denies melena, Denies hematochezia, Denies change in bowel habits, Denies dyspepsia and Denies nausea Denies hematuria and Denies dysuria Musc Denies abnormal gait, Denies myalgias, Denies arthralgias, Denies numbness and Denies tingling Skin/Breast Denies rash, Denies unusual bruising and Denies wounds Neuro Denies abnormal gait, Denies dizziness, Denies headache(s), Denies memory loss, Denies numbness, Denies Sensory deficit (Neuro), Denies tingling and Denies weakness Psych Denies anxiety, Denies depression, Denies memory loss Endo Denies cold intolerance, Denies fatigue, Denies heat intolerance, Denies polydipsia and Denies polyuria Aller/Immun Denies wheezing Physical exam (Primary Care) Vital Signs: Last Vital Signs Temp 97.9 F 04/05/25 08:41 Pulse 66 04/05/25 08:41 Resp 16 04/05/25 08:41 BP 126/58 L 04/05/25 08:41 Pulse Ox 100 04/05/25 08:41 Oxygen Delivery Method Room Air 04/05/25 08:41 BMI result Body Mass Index 22.6 Tobacco/Smoking Status: Tobacco use Status Tobacco use date assessed 04/05/25 04/05/25 08:44 Patient Tobacco Use Status Former Tobacco user 04/05/25 08:44 Tobacco use type Cigarette 04/05/25 08:44 e-Cigarette/Vaping Use Former Use 04/05/25 08:44 Thrive Assessment: Date of Thrive Assessment Date Thrive assessed 01/07/25 04/05/25 08:44 Currently or been in a relationship where the following occur: No concerns reported Const Other: General: no acute distress and well developed Nutritional Appearance: well nourished Orientation/consciousness: patient oriented x3 HENMT Head: Yes normocephalic and Yes atraumatic Eyes General: appearance normal, both eyes and all related structures Pupils: Equal, round and reactive pupils present EOM: EOMs intact bilaterally Resp Effort & Inspection: normal respiratory effort Auscultation: clear to auscultation bilaterally Cardio Rate: regular rate Rhythm: regular rhythm Heart sounds: S1 normal heart sound present, S2 normal heart sound present, no gallops, no murmurs and no rubs GI Palpation (GI): No Abdominal aortic bruit present, Soft to palpation, nontender, No hepatosplenomegaly present and No Rebound tenderness present Auscultation: normal bowel sounds General: Yes no CVA tenderness Back/Spine/Pelvis Back: no CVA tenderness Cervical Spine: cervical ROM normal and No Cervical spine tenderness Thoracic/Lumbar Spine: thoraco-lumbar ROM normal, No pain with thoraco-lumbar ROM, No thoracic spinal tenderness and No lumbar spinal tenderness Extrem General: Yes normal to inspection, No edema and No calf tenderness Skin General: warm and dry. Normal skin color. Normal skin turgor Lesions: no lesions Rashes: no rashes Trauma: no lacerations or abrasions Wounds: no wounds Nails: normal Neuro General: patient oriented x3, gait normal and no focal neuro deficit Cranial nerves: Yes Equal, round and reactive pupils present Cognition (Neuro): normal cognition Gait exam (Neuro): Normal gait present Sensory Exam: No Sensory deficit (Neuro) Psych Appearance: grossly normal Affect: normal affect Attitude: cooperative Thought process: Normal thought process present Coding Level of Care Code Est Pt Level 4 (83077) Diagnoses Allergic urticaria L50.0 Assessment & Plan Assessment & Plan (1) Allergic urticaria: Code(s): L50.0 - Allergic urticaria Category: Medical Plan: Resolved. Cetirizine as prescribed. Follow-up with recurrent symptoms. May refer to an grinder operator external tool. Verbalized understanding and agreed with the plan. Medications: New cetirizine 10 mg PO DAILY 90 tabs 2RF 90 days
[2025-04-05 08:41] VITALS: BP 126/58; PULSE 66; RESP 16; TEMP 36.6; O2SAT 100; BMI 22.6
== END 2025-04-05 09:40 | disposition home or self-care (01) ==
LOC: HO.HMCFM 08:35
PROVIDERS: PCP Nurse Practitioner Family; Visit Provider Nurse Practitioner Family
DX: L50.0 Allergic urticaria (principal)

== ENCOUNTER → 2025-04-05 08:34 | Outpatient (BNVA) | payer OTHER, SELFPAY | PROVIDERS: PCP Nurse Practitioner Family; Visit Provider Nurse Practitioner Family | DX: L50.0 Allergic urticaria (principal) | CPT/HCPCS: 99212 ==